=== PATIENT | male | born 1955 | race Caucasian/White ===

== ENCOUNTER → 2020-02-19 09:15 | Outpatient (BNVA) | payer MEDICARE, SELFPAY | PROVIDERS: PCP Internal Medicine; Referring Provider Internal Medicine; Visit Provider Orthopaedic Surgery | DX: M75.52 Bursitis of left shoulder (principal); G54.0 Brachial plexus disorders | CPT/HCPCS: 20610; 99212; J1100 ==

== ENCOUNTER 2020-05-14 13:59 | Outpatient (REF) | payer MEDICARE, SELFPAY ==
--- NOTE | 2020-05-14 14:03 | XR_ITS ---
EXAMINATION: XR CHEST CLINICAL INFORMATION: Pneumonia COMPARISON: 08/21/2019 x-ray, CTA chest TECHNIQUE: 2 views of the chest were obtained. FINDINGS: Stable cardiac and mediastinal silhouette. There is curvilinear atelectasis/scarring in the left lung base, appearing similar to previous. Blunting of the left lateral costophrenic angle, similar to previous, likely reflecting pleural thickening rather than small effusion. No new focal consolidation. No right-sided pleural effusion. No pulmonary edema or pneumothorax. Multilevel thoracic spine degeneration. XR/XR chest 2V IMPRESSION: No evidence of new focal consolidation. Similar appearance of pleural parenchymal findings in the left lung base.
== END 2020-05-14 14:00 | disposition home or self-care (01) ==
LOC: HO.HMGCX 13:59
PROVIDERS: PCP Internal Medicine; Visit Provider Internal Medicine
DX: J18.9 Pneumonia, unspecified organism (principal)
CPT/HCPCS: 71046

== ENCOUNTER 2020-05-23 10:03 | Outpatient (REF) | payer MEDICARE, SELFPAY ==
--- NOTE | 2020-05-23 10:06 | EMG_ITS ---
Right median and ulnar motor and sensory studies were performed. Right radial sensory study was performed. Right median and lateral antecubital laterals and medial sensory studies were performed. Paraspinal muscles and deltoid were checked with needle. IMPRESSION: 1. [id number] right median neuropathy across carpal tunnel. 2. No evidence of right brachial plexopathy. MD ISHAN Wilkerson/WALLYL / [id number]
== END 2020-05-23 10:04 | disposition home or self-care (01) ==
LOC: HO.NEURO 10:03
PROVIDERS: Visit Provider Orthopaedic Surgery
DX: G54.0 Brachial plexus disorders (principal)
CPT/HCPCS: 95886; 95910

== ENCOUNTER → 2020-06-06 11:12 | Outpatient (BNVA) | payer MEDICARE, SELFPAY | PROVIDERS: Visit Provider Orthopaedic Surgery | DX: Z13.89 Encounter for screening for other disorder (principal) | CPT/HCPCS: 99212 ==

== ENCOUNTER 2020-07-17 10:00 | Outpatient (RCR) | payer MEDICARE, SELFPAY ==
--- NOTE | 2020-06-17 11:47 | MHC.PT.EP ---
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 pt is a fair candidate for skilled PT due to age, potential remediation of impairments, typical disease/condition progression and prognosis, comorbidities, and motivation. pt would benefit from tailored strengthening and stretching exercise program, functional training, postural re-training, neuromuscular re-education, modalities as needed for pain, and equipment safety demonstration. Frequency and Duration: The patient will be seen 2x/wk for 4 wks Short Term Goals: pt will be I w/ HEP to promote self-management of condition. pt will improve R shoulder external rotation by 15 degrees to promote ease in upper body ADLs. 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 pt will improve R shoulder flexion by 20 degrees to promote ease in reaching head to perform grooming activities. Treatment Plan: Modalities to reduce pain, spasms and effusion. Manual therapy to restore motion and function. Therapeutic exercise to improve strength and flexibility. Neuromuscular re-education for posture and balance. Therapeutic activities to return to functional activities of daily living. Electronically signed by: Nano Goff PT, DPT Please sign and return to therapist. Thank you for your referral.
--- NOTE | 2020-07-22 10:44 | MHC.PT.DC ---
[facility] [place] Office [place] Office [place] Office [address] Hailey Mims [address] [phone] F: [phone] F: [phone] F: [phone] F: [phone] Physical Therapy Discharge Report Diagnosis: G54.0 brachial plexus disorders M24.551 contracture, right hip Date of Surgery: Date of Evaluation: 06/17/20 Date of Discharge: 07/22/20 Treatments to Date: 9 Cancellations to Date: 1 No Shows to Date: 0 Discharge Status: Recommend MD Follow-up Discharge Summary: The patient had a freezing episode in the hospital elevator and required assistance from 3+ people to get him into a wheelchair last visit. He was wheeled into the therapy gym and reported he was not feeling dizzy or lightheaded, just got stuck. Overall, he reports no improvement regarding use of his shoulder. He has poor home exercise program compliance at home and only does his at-home matthew system. It is unclear if the patient will benefit from further PT for his shoulder d/t progressive worsening of his Parkinson's and poor bony alignment/healing post-fracture. He is discharged from this physical therapy plan of care to his home exercise program at this time. Electronically signed by: Nano Goff PT, DPT Please sign and return to therapist. Thank you for your referral.
== END 2020-07-22 10:44 | disposition other institution (70) ==
LOC: HO.PT 10:00
PROVIDERS: Visit Provider Orthopaedic Surgery
DX: G54.0 Brachial plexus disorders (principal); M24.551 Contracture, right hip
CPT/HCPCS: 97110; 97140; 97162; 97530

== ENCOUNTER 2020-07-18 11:35 | Emergency (ER) | payer MEDICARE, SELFPAY ==
--- NOTE | ~2020-07-18 | XR_ITS ---
EXAMINATION: XR CHEST CLINICAL INFORMATION: Chest pain. COMPARISON: Chest x-ray 05/14/2020. TECHNIQUE: 2 views of the chest were obtained. FINDINGS: Stable normal cardiac and mediastinal silhouette. Curvilinear atelectasis/scarring in the left lung base, with similar appearance of blunting of the left costophrenic angle. No new focal consolidation. No right-sided pleural effusion. No pulmonary edema. No pneumothorax. Thoracic spine degeneration. XR/XR chest 2V IMPRESSION: No evidence of new focal consolidation. Stable blunting of the left costophrenic angle and left basilar atelectasis/scarring.
[2020-07-18 11:44] VITALS: BP 132/63; PULSE 68; RESP 16; TEMP 36.4; O2SAT 96; BMI 31.8
--- NOTE | 2020-07-18 11:49 | ECG_ITS ---
Test Reason : CP Blood Pressure : / mmHG Vent. Rate : 062 BPM Atrial Rate : 062 BPM P-R Int : 174 ms QRS Dur : 100 ms QT Int : 428 ms P-R-T Axes : 062 036 043 degrees QTc Int : 434 ms Sinus rhythm with marked sinus arrhythmia Otherwise normal ECG When compared with ECG of 21-AUG-2019 12:29, No significant change was found Referred By: Arti Peguero Electronically Signed By:MAURO MACE
--- NOTE | 2020-07-18 12:35 | ED_ITS ---
HPI - Chest Pain General Chief Complaint: Chest Pain Stated Complaint: chest pain Time Seen by Provider: 07/18/20 12:21 Source: patient Mode of arrival: ambulatory History of Present Illness HPI narrative: 65-year-old male with a past medical history of COPD, HTN, Parkinson's, hyperlipidemia, pneumonia 1 month ago, presenting to the ED com plaining of intermittent CP and worsening SOB with wheezing x 3-5 days. Reports dyspnea on exertion, mild LE edema, and persistent dry cough. Denies compliance with home inhalers. Denies taking anticoagulation. Traveled to [place] about 1 month ago. Denies fever, chills, abdominal pain, nausea/vomiting, calf pain MD complaint: chest pain and chest discomfort Related Data Home Medications Medication Instructions Recorded Confirmed atorvastatin 10 mg tablet 10 mg PO DAILY 02/19/20 07/18/20 carbidopa 10 mg-levodopa 100 mg 1 tab PO QID 02/19/20 07/18/20 tablet carbidopa 10 mg-levodopa 100 mg 1 tab PO QID 02/19/20 07/18/20 tablet clonazepam 1 mg tablet 1 mg PO DAILY 02/19/20 07/18/20 pramipexole 0.125 mg tablet 0.125 mg PO DAILY 02/19/20 07/18/20 tramadol 50 mg tablet 50 mg PO DAILY 02/19/20 07/18/20 Previous Rx's Medication Instructions Recorded amlodipine 2.5 mg tablet 2.5 mg PO DAILY #30 tab 05/14/20 oxycodone 5 mg tablet 5 mg PO DAILY PRN #30 tab 07/11/20 albuterol sulfate 2 puff INHALATION Q4-6H PRN #6.7 g 07/18/20 prednisone 40 mg PO DAILY 5 Days #10 tab 07/18/20 Allergies Allergy/AdvReac Type Severity Reaction Status Date / Time amlodipine Allergy Unknown unknown Verified 07/18/20 11:49 Review of Systems Review of Systems: Constitutional: No Fever, No Chills, No Fatigue, No Malaise Cardiovascular: + Chest Pain, + SOB, + Dyspnea on Exertion, No Orthopnea, + Edema, No Palpitations Respiratory: + Cough, No Sputum, + Wheezing, + Dyspnea Gastrointestinal: No Nausea, No Vomiting, No Diarrhea, No Abdominal pain Genitourinary: No Dysuria, No Urinary Frequency, No Hematuria Musculoskeletal: No joint pain, No Myalgias, No Joint Swelling Skin: No Skin Lesions, No rash Neuro: No Weakness, No Numbness, No Dizziness, No Headache Yes all other systems are reviewed and are negative [facility] Past Medical History Attestation statement: The following information was validated with the patient. Medical History (Updated 07/18/20 @ 16:21 by ANDERSON Rachel) Acute bursitis of left shoulder Axillary nerve palsy COPD (chronic obstructive pulmonary disease) Family history of ischemic heart disease and other diseases of the circulatory system HTN (hypertension) Nonrheumatic aortic (valve) insufficiency Parkinson disease Pneumonia Pure hypercholesterolemia, unspecified Surgical History History of arthroscopy of shoulder History of colonoscopy History of esophagogastroduodenoscopy (EGD) History of right hip replacement History of surgery History of total hip arthroplasty Family History Family History Father CVD (cardiovascular disease) Mother CVD (cardiovascular disease) Brother No problems noted. Brother Brain cancer Sister No problems noted. Sister MRSA (methicillin resistant Staphylococcus aureus) Daughter No problems noted. Social History Social History Alcohol intake: never Smoking Status: Unknown if ever smoked Use of substances other than those prescribed or required for medical reasons: No Advance Directives: No Advance Directives Information Provided: Yes Current occupational status: employed Current occupation: Right Handed Physical Exam Vital Signs: Vital Signs: Last Vital Signs Temp 97.6 F 07/18/20 11:44 Pulse 62 07/18/20 14:41 Resp 16 07/18/20 14:41 BP 132/63 07/18/20 11:44 Pulse Ox 96 07/18/20 14:41 Body Mass Index 31.8 Const: General: cooperative, healthy appearing and no acute distress Orientation/consciousness: patient oriented x3 Limitations: no limitations HENMT: Head: Yes normal to inspection Ears: hearing grossly normal bilaterally General nose exam: Normal external nose present Face and sinus: Yes normal facial exam Eyes: General: appearance normal, both eyes and all related structures EOM: EOMs intact bilaterally Neck: Neck: Yes normal visual inspection Resp: Effort & Inspection: normal respiratory effort Auscultation: clear to auscultation bilaterally and wheezes Cardio: Rate: regular rate Heart sounds: S1 normal heart sound present and S2 normal heart sound present GI: Inspection: Yes normal to inspection Palpation (GI): Soft to palpation, nontender, no guarding and not rigid Skin: Rashes: no rashes Wounds: no wounds Neuro: General: patient oriented x3 Gait exam (Neuro): Normal gait present Extrem: General: Yes normal to inspection and Yes edema (Mild bilateral lower extremity pitting edema) Course Course Course Narrative: -no leukocytosis. H&H stable, BUN at baseline, troponin nega tive, labs otherwise unremarkable -COVID 19/influenza/RSV negative XR chest 2V IMPRESSION: No evidence of new focal consolidation. Stable blunting of the left costophrenic angle and left basilar atelectasis/scarring -1617--On re-evaluation after our long treatment patient with clear lungs. Discussed worrisome signs and symptoms and strict return precautions. Informed patient he needs to be compliant with home medications/inhalers. Is to follow- up with PCP MDM - Chest Pain MDM Narrative Medical decision making narrative: 65-year-old male with a past medical history of COPD, HTN, Parkinson's, hyperlipidemia, pneumonia 1 month ago, presenting to the ED complaining of intermittent CP and worsening SOB with wheezing x 3-5 days. Reports dyspnea on exertion, mild LE edema, and persistent dry cough. On exam VSS, NAD, lungs with diffuse wheezing, mild bilateral lower extremity pitting edema. Concern for COPD exacerbation vs ACS vs CHF. Low concern for DVT/PE. Rule out pneumonia/viral syndrome/COVID-19 Plan: EKG, labs, CXR, albuterol, magnesium, Solu-Medrol, reassess Medical Records Data Attestation: I reviewed the patient's medical records. Lab Data Attestation: I reviewed the patient's lab results. Result diagrams: 07/18/20 12:45 07/18/20 12:45 Labs: Lab Results 07/18/20 07/18/20 07/18/20 Range/Units 12:45 12:45 12:45 WBC 6.4 (4.8-10.8) X10*3/uL RBC 4.38 L (4.60-5.80) X10*6/uL Hgb 13.4 L (14.0-18.0) g/dl Hct 41.1 L (42-52) % MCV 93.8 (80-98) fL MCH 30.6 (27.0-33.0) pg MCHC 32.6 (31.0-36.0) g/dl RDW 13.3 (11.0-16.0) % Plt Count 191 (160-400) X10*3/uL MPV 9.8 (9.4-12.4) fL Immature Gran % (Auto) 0.5 H (0.0-0.4) % Neut % (Auto) 80.2 H (45-73) % Lymph % (Auto) 7.9 L (20-40) % [place] % (Auto) 8.4 (2-11) % Eos % (Auto) 2.5 (0-4) % Baso % (Auto) 0.5 (0-2) % Lymph # (Auto) 0.5 L (1.2-4.9) X10*3/uL [place] # (Auto) 0.5 (0.1-1.2) X10*3/uL Eos # (Auto) 0.2 (0.0-0.4) X10*3/uL Baso # (Auto) 0.0 (0.0-0.2) X10*3/uL Abs Immat Gran (auto) 0.03 (0.00-0.03) X10*3/uL Absolute Neuts (auto) 5.2 (2.0-8.3) X10*3/uL Absolute Nucleated RBC 0.000 (0.0-0.012) X10*3/uL Nucleated RBC % (auto) 0.0 (0.0-0.2) /100WBC Smear Tech's Comments VERIFIED Hold Purple Top SEE NOTE Hold Blue Top SEE NOTE Sodium (135-145) mmol/L Potassium (3.3-5.1) mmol/L Chloride (96-108) mmol/L Carbon Dioxide (22-29) mmol/L Anion Gap (12-20) BUN (9-16) mg/dL Creatinine (0.5-1.4) mg/dL Estim Creat Clear Calc Estimated GFR Random Glucose (60-115) mg/dL Calcium (8.4-10.2) mg/dL Magnesium (1.6-2.6) mg/dL Total Bilirubin (0.0-1.0) mg/dL Direct Bilirubin (0.0-0.5) mg/dL AST (5-37) U/L ALT (0-40) U/L Alkaline Phosphatase (39-117) U/L Troponin I High Sens (<3.5-35.0) ng/L B-Natriuretic Peptide (<100) pg/mL Total Protein (6.5-8.0) g/dL Albumin (3.5-5.0) g/dL Procalcitonin ng/mL Coronavirus (PCR) (Negative) Influenza Type A (PCR) (Negative) Influenza Type B (PCR) (Negative) RSV RNA Qual (PCR) (Negative) 07/18/20 07/18/20 07/18/20 Range/Units 12:45 12:45 12:45 WBC (4.8-10.8) X10*3/uL RBC (4.60-5.80) X10*6/uL Hgb (14.0-18.0) g/dl Hct (42-52) % MCV (80-98) fL MCH (27.0-33.0) pg MCHC (31.0-36.0) g/dl RDW (11.0-16.0) % Plt Count (160-400) X10*3/uL MPV (9.4-12.4) fL Immature Gran % (Auto) (0.0-0.4) % Neut % (Auto) (45-73) % Lymph % (Auto) (20-40) % [place] % (Auto) (2-11) % Eos % (Auto) (0-4) % Baso % (Auto) (0-2) % Lymph # (Auto) (1.2-4.9) X10*3/uL [place] # (Auto) (0.1-1.2) X10*3/uL Eos # (Auto) (0.0-0.4) X10*3/uL Baso # (Auto) (0.0-0.2) X10*3/uL Abs Immat Gran (auto) (0.00-0.03) X10*3/uL Absolute Neuts (auto) (2.0-8.3) X10*3/uL Absolute Nucleated RBC (0.0-0.012) X10*3/uL Nucleated RBC % (auto) (0.0-0.2) /100WBC Smear Tech's Comments Hold Purple Top Hold Blue Top Sodium 140 (135-145) mmol/L Potassium 4.4 (3.3-5.1) mmol/L Chloride 103 (96-108) mmol/L Carbon Dioxide 31 H (22-29) mmol/L Anion Gap 10 L (12-20) BUN 26 H (9-16) mg/dL Creatinine 0.82 (0.5-1.4) mg/dL Estim Creat Clear Calc 114.8 Estimated GFR > 60 Random Glucose 89 (60-115) mg/dL Calcium 8.6 (8.4-10.2) mg/dL Magnesium 2.1 (1.6-2.6) mg/dL Total Bilirubin 0.6 (0.0-1.0) mg/dL Direct Bilirubin 0.2 (0.0-0.5) mg/dL AST 15 (5-37) U/L ALT < 6 (0-40) U/L Alkaline Phosphatase 110 (39-117) U/L Troponin I High Sens < 3.5 (<3.5-35.0) ng/L B-Natriuretic Peptide 23 (<100) pg/mL Total Protein 6.5 (6.5-8.0) g/dL Albumin 4.0 (3.5-5.0) g/dL Procalcitonin ng/mL Coronavirus (PCR) NEGATIVE (Negative) Influenza Type A (PCR) NEGATIVE (Negative) Influenza Type B (PCR) NEGATIVE (Negative) RSV RNA Qual (PCR) NEGATIVE (Negative) 07/18/20 Range/Units 12:45 WBC (4.8-10.8) X10*3/uL RBC (4.60-5.80) X10*6/uL Hgb (14.0-18.0) g/dl Hct (42-52) % MCV (80-98) fL MCH (27.0-33.0) pg MCHC (31.0-36.0) g/dl RDW (11.0-16.0) % Plt Count (160-400) X10*3/uL MPV (9.4-12.4) fL Immature Gran % (Auto) (0.0-0.4) % Neut % (Auto) (45-73) % Lymph % (Auto) (20-40) % [place] % (Auto) (2-11) % Eos % (Auto) (0-4) % Baso % (Auto) (0-2) % Lymph # (Auto) (1.2-4.9) X10*3/uL [place] # (Auto) (0.1-1.2) X10*3/uL Eos # (Auto) (0.0-0.4) X10*3/uL Baso # (Auto) (0.0-0.2) X10*3/uL Abs Immat Gran (auto) (0.00-0.03) X10*3/uL Absolute Neuts (auto) (2.0-8.3) X10*3/uL Absolute Nucleated RBC (0.0-0.012) X10*3/uL Nucleated RBC % (auto) (0.0-0.2) /100WBC Smear Tech's Comments Hold Purple Top Hold Blue Top Sodium (135-145) mmol/L Potassium (3.3-5.1) mmol/L Chloride (96-108) mmol/L Carbon Dioxide (22-29) mmol/L Anion Gap (12-20) BUN (9-16) mg/dL Creatinine (0.5-1.4) mg/dL Estim Creat Clear Calc Estimated GFR Random Glucose (60-115) mg/dL Calcium (8.4-10.2) mg/dL Magnesium (1.6-2.6) mg/dL Total Bilirubin (0.0-1.0) mg/dL Direct Bilirubin (0.0-0.5) mg/dL AST (5-37) U/L ALT (0-40) U/L Alkaline Phosphatase (39-117) U/L Troponin I High Sens (<3.5-35.0) ng/L B-Natriuretic Peptide (<100) pg/mL Total Protein (6.5-8.0) g/dL Albumin (3.5-5.0) g/dL Procalcitonin 0.02 ng/mL Coronavirus (PCR) (Negative) Influenza Type A (PCR) (Negative) Influenza Type B (PCR) (Negative) RSV RNA Qual (PCR) (Negative) ECG Data ECG #1: Attestation: I personally reviewed and interpreted this ECG as follows: ECG interpretation date: 07/18/20 ECG interpretation time: 11:59 Interpretation: EKG normal sinus rhythm rate 62. Nonischemic, no STEMI Discharge Plan Discharge Clinical Impression: COPD (chronic obstructive pulmonary disease) Patient Disposition: Home, Self-Care Instructions: COPD (Chronic Obstructive Pulmonary Disease) (ED) Additional Instructions: You are having an exacerbation of her COPD. You need to take at home medications/inhalers. In addition start taking prednisone which is a steroid Follow up with her doctor in the next 5-7 days If her symptoms persist or worsen, your chest pain shortness of breath becomes more constant, fever, chills, worsening or persistent swelling in your legs return to the ED Prescriptions: New albuterol sulfate 90 mcg/actuation HFA aerosol inhaler 2 puff inhalation Q4-6H PRN (Reason: shortness of breath or wheezing) Qty: 6.7 RF: 0 prednisone 20 mg tablet 40 mg PO DAILY 5 Days Qty: 10 RF: 0 No Action oxycodone 5 mg tablet 5 mg PO DAILY PRN (Reason: pain) Qty: 30 RF: 0 amlodipine 2.5 mg tablet 2.5 mg PO DAILY Qty: 30 RF: 3 tramadol 50 mg tablet 50 mg PO DAILY RF: 0 carbidopa-levodopa [Sinemet] 10-100 mg tablet 1 tab PO QID RF: 0 pramipexole 0.125 mg tablet 0.125 mg PO DAILY RF: 0 carbidopa-levodopa 10-100 mg tablet 1 tab PO QID RF: 0 clonazepam 1 mg tablet 1 mg PO DAILY RF: 0 atorvastatin 10 mg tablet 10 mg PO DAILY RF: 0 Referrals: Elisabet Ochoa MD [Primary Care Provider] - 2 days
[2020-07-18 12:58] LABS: Basophils Percent Auto 0.5 % (0-2); Eosinophils Absolute Auto 0.2 X10*3/uL (0.0-0.4); Eosinophils Percent Auto 2.5 % (0-4); Hematocrit 41.1 % (42-52); Hemoglobin 13.4 g/dl (14.0-18.0); Imm Gran Abs Auto 0.03 X10*3/uL (0.00-0.03); Imm Gran Pct Auto 0.5 % (0.0-0.4); Lymphocytes Absolute Auto 0.5 X10*3/uL (1.2-4.9); Lymphocytes Percent Auto 7.9 % (20-40); MANUAL DIFF FLAG SCAN; Mean Corpuscular HGB Conc 32.6 g/dl (31.0-36.0); Mean Corpuscular Hemoglobin 30.6 pg (27.0-33.0); Mean Corpuscular Volume 93.8 fL (80-98); Mean Platelet Volume 9.8 fL (9.4-12.4); Monocytes Absolute Auto 0.5 X10*3/uL (0.1-1.2); Monocytes Percent Auto 8.4 % (2-11); Neutrophils Absolute Auto 5.2 X10*3/uL (2.0-8.3); Neutrophils Percent Auto 80.2 % (45-73); Platelet Count 191 X10*3/uL (160-400); Red Blood Count 4.38 X10*6/uL (4.60-5.80); Red Cell Distribution Width 13.3 % (11.0-16.0); SCAN SMEAR FLAG 1; White Blood Count 6.4 X10*3/uL (4.8-10.8)
--- NOTE | 2020-07-18 13:01 | PC.NURSE ---
EKG documented for ID# [id number]
[2020-07-18] MEDS: methylPREDNISolone Sod Succ 125 MG/2 ML VIAL IVPUSH (13:04)
[2020-07-18] MEDS: Magnesium Sulfate/H2O 2 GM/50 ML PIGGYBACK IV (13:04)
[2020-07-18 13:09] VITALS: PULSE 60
[2020-07-18 13:25] LABS: B Type Natriuretic Peptide 23 pg/mL (<100); Troponin-I High Sensitivity < 3.5 ng/L (<3.5-35.0)
[2020-07-18 13:26] LABS: SLIDE REVIEW VERIFIED
[2020-07-18 13:27] LABS: Alanine Aminotransferase < 6 U/L (0-40); Alkaline Phosphatase 110 U/L (39-117); Anion Gap 10 (12-20); Aspartate Amino Transferase 15 U/L (5-37); Bilirubin Direct 0.2 mg/dL (0.0-0.5); Bilirubin Total 0.6 mg/dL (0.0-1.0); Blood Urea Nitrogen 26 mg/dL (9-16); Calcium 8.6 mg/dL (8.4-10.2); Carbon Dioxide 31 mmol/L (22-29); Chloride 103 mmol/L (96-108); Creatinine Clr Calc Pharmacy 114.8; Estimated Glomerular Filt Rate > 60; Glucose Random 89 mg/dL (60-115); Magnesium 2.1 mg/dL (1.6-2.6); Potassium 4.4 mmol/L (3.3-5.1); Sodium 140 mmol/L (135-145); Total Protein 6.5 g/dL (6.5-8.0)
[2020-07-18 13:32] LABS: Influenza A PCR NEGATIVE (Negative); Influenza B PCR NEGATIVE (Negative); Resp Syncy Virus RNA Qual PCR NEGATIVE (Negative); SARS COV2 PCR INHOUSE NEGATIVE (Negative)
[2020-07-18 13:40] LABS: Procalcitonin 0.02 ng/mL
[2020-07-18] MEDS: Albuterol/Iprat 2.5/0.5MG 3 ML AMPUL.NEB INHALE (14:03)
[2020-07-18] MEDS: Albuterol Sulfate 90 MCG 8 GM INHALER 4 PUFF INHALE (14:03)
[2020-07-18 14:05] VITALS: PULSE 59; O2SAT 95
[2020-07-18 14:31] VITALS: PULSE 73; O2SAT 95
[2020-07-18] MEDS: Albuterol Sulfate (0.083%) 2.5 MG/3 ML VIAL.NEB 10 MG INHALE (14:31)
[2020-07-18 14:41] VITALS: PULSE 62; RESP 16; O2SAT 96
== END 2020-07-18 16:24 | disposition home or self-care (01) ==
PROVIDERS: Physician Assistant; Emergency Provider Emergency Medicine; PCP Internal Medicine
DX: J44.1 Chronic obstructive pulmonary disease with (acute) exacerbation (principal); R07.9 Chest pain, unspecified; Z20.822 Contact with and (suspected) exposure to COVID-19; I10 Essential (primary) hypertension; G20 Parkinson's disease; E78.5 Hyperlipidemia, unspecified; Z87.01 Personal history of pneumonia (recurrent); Z79.02 Long term (current) use of antithrombotics/antiplatelets; Z79.899 Other long term (current) drug therapy
CPT/HCPCS: 0241U; 36415; 71046; 80048; 80076; 83735; 83880; 84145; 84484; 85025; 93005; 94640; 94644; 96365; 96366; 96374; 99284; 99285; J2930; J3475

== ENCOUNTER 2020-08-12 16:01 | Outpatient (REF) | payer MEDICARE, SELFPAY ==
--- NOTE | ~2020-08-12 | XR_ITS ---
EXAMINATION: XR HAND, LEFT CLINICAL INFORMATION: Pain. COMPARISON: None. TECHNIQUE: PA, lateral, and oblique views of the left hand. FINDINGS: There is loss of PIP and DIP joint space with minimal periarticular spurring. No bony erosive changes seen. The MCP and carpometacarpal joints space is maintained normal. Small radiopaque foreign body seen along the soft tissues of proximal phalanx 2nd digit. XR/XR hand LT min 3V IMPRESSION: Mild degenerative changes of left hand as described above. Small radiopaque soft tissue foreign body in the proximal phalanx 2nd digit.
== END 2020-08-12 16:02 | disposition home or self-care (01) ==
LOC: HO.HOSX 16:01
PROVIDERS: Visit Provider Orthopaedic Surgery
DX: M79.642 Pain in left hand (principal)
CPT/HCPCS: 73130

== ENCOUNTER → 2020-08-13 09:32 | Outpatient (BNVA) | payer MEDICARE, SELFPAY | PROVIDERS: PCP Internal Medicine; Visit Provider Orthopaedic Surgery | DX: M65.331 Trigger finger, right middle finger (principal); M19.042 Primary osteoarthritis, left hand | CPT/HCPCS: 20550; 99202; J1100 ==

== ENCOUNTER → 2020-08-29 11:02 | Outpatient (BNVA) | payer MEDICARE, SELFPAY | PROVIDERS: PCP Internal Medicine; Visit Provider Orthopaedic Surgery | DX: G54.0 Brachial plexus disorders (principal); G20 Parkinson's disease; M75.101 Unspecified rotator cuff tear or rupture of right shoulder, not specified as traumatic | CPT/HCPCS: 99212 ==

== ENCOUNTER 2020-08-30 11:37 | Outpatient (REF) | payer MEDICARE, SELFPAY ==
[2020-08-30 14:22] LABS: Hematocrit 43.6 % (42-52); Hemoglobin 13.9 g/dl (14.0-18.0); Mean Corpuscular HGB Conc 31.9 g/dl (31.0-36.0); Mean Corpuscular Hemoglobin 29.9 pg (27.0-33.0); Mean Corpuscular Volume 93.8 fL (80-98); Mean Platelet Volume 10.4 fL (9.4-12.4); Platelet Count 230 X10*3/uL (160-400); Red Blood Count 4.65 X10*6/uL (4.60-5.80); Red Cell Distribution Width 12.8 % (11.0-16.0); White Blood Count 6.7 X10*3/uL (4.8-10.8)
[2020-08-30 15:03] LABS: Alanine Aminotransferase 6 U/L (0-40); Alkaline Phosphatase 121 U/L (39-117); Anion Gap 10 (12-20); Aspartate Amino Transferase 17 U/L (5-37); Bilirubin Total 0.6 mg/dL (0.0-1.0); Blood Urea Nitrogen 23 mg/dL (9-16); Calcium 9.1 mg/dL (8.4-10.2); Carbon Dioxide 30 mmol/L (22-29); Chloride 103 mmol/L (96-108); Cholesterol 166 mg/dL; Estimated Glomerular Filt Rate > 60; Glucose Fasting 92 mg/dL (60-99); HDL Cholesterol 33 mg/dL; LDL Cholesterol Calculated 111 mg/dl; Potassium 4.9 mmol/L (3.3-5.1); Sodium 138 mmol/L (135-145); Total Protein 6.3 g/dL (6.5-8.0); Triglycerides 114 mg/dL
[2020-08-30 15:11] LABS: Prostate Specific Antigen Scr 0.24 ng/mL (<0.05-4.0)
== END 2020-08-30 11:38 | disposition home or self-care (01) ==
LOC: HO.HMGCLDS 11:37
PROVIDERS: PCP Internal Medicine; Visit Provider Internal Medicine
DX: Z00.00 Encounter for general adult medical examination without abnormal findings (principal); Z12.5 Encounter for screening for malignant neoplasm of prostate; E78.5 Hyperlipidemia, unspecified
CPT/HCPCS: 36415; 80053; 80061; 84153; 85027

== ENCOUNTER → 2020-09-23 14:16 | Outpatient (BNVA) | payer MEDICARE, SELFPAY | PROVIDERS: PCP Internal Medicine; Visit Provider Orthopaedic Surgery | DX: M70.22 Olecranon bursitis, left elbow (principal) | CPT/HCPCS: 99212 ==

== ENCOUNTER → 2020-11-12 09:26 | Outpatient (BNVA) | payer MEDICARE, SELFPAY | PROVIDERS: PCP Internal Medicine; Visit Provider Nurse Practitioner Family | DX: K59.04 Chronic idiopathic constipation (principal); R55 Syncope and collapse | CPT/HCPCS: 99202 ==

== ENCOUNTER → 2020-12-05 09:17 | Outpatient (BNVA) | payer MEDICARE, SELFPAY | PROVIDERS: Visit Provider Orthopaedic Surgery | DX: M12.811 Other specific arthropathies, not elsewhere classified, right shoulder (principal); M75.52 Bursitis of left shoulder; G58.8 Other specified mononeuropathies; I10 Essential (primary) hypertension; G20 Parkinson's disease; E78.5 Hyperlipidemia, unspecified; E78.00 Pure hypercholesterolemia, unspecified; F17.210 Nicotine dependence, cigarettes, uncomplicated; Z88.8 Allergy status to other drugs, medicaments and biological substances | CPT/HCPCS: 20610; 99212; J1100 ==

== ENCOUNTER → 2020-12-11 12:08 | Outpatient (BNVA) | payer MEDICARE, SELFPAY | PROVIDERS: PCP Internal Medicine; Visit Provider Anesthesiology | DX: M12.811 Other specific arthropathies, not elsewhere classified, right shoulder (principal); G90.511 Complex regional pain syndrome I of right upper limb; Z79.899 Other long term (current) drug therapy | CPT/HCPCS: 99202 ==

== ENCOUNTER 2020-12-11 13:38 | Emergency (ER) | payer MEDICARE, SELFPAY ==
--- NOTE | ~2020-12-11 | XR_ITS ---
EXAMINATION: XR SHOULDER, RIGHT CLINICAL INFORMATION: Right shoulder pain COMPARISON: August 15, 2019 TECHNIQUE: Three views of the right shoulder. FINDINGS: There is again noted to be deformity about the right lateral humeral head and neck related to old fracture dislocation. No acute fracture or dislocation is evident. There is some mild subluxation of the humeral head in the glenohumeral joint which is more prominent than on previous study of August 15, 2019 and is consistent with rotator cuff injury. There are a few new areas of calcification present one of which may be related to calcific tendinitis and one just inferior to the glenohumeral joint. No widening of the coracoclavicular space is seen. No significant abnormality of the acromioclavicular joint is noted. The glenohumeral joint spaces maintained. XR/XR shoulder RT min 2V IMPRESSION: Chronic changes of right humeral fracture dislocation as described.
[2020-12-11 13:46] VITALS: BP 127/77; PULSE 71; RESP 16; TEMP 36.1; O2SAT 95; BMI 29.8
--- NOTE | 2020-12-11 15:13 | ED_ITS ---
HPI - Extremity Problem General Chief complaint: Extremity Injury, Upper Stated complaint: rt shoulder pain Time Seen by Provider: 12/11/20 15:13 History of Present Illness HPI Narrative: Patient with chronic pain in the right shoulder since of fracture which was repaired surgically 2 years ago, he had a steroid injection for increased pain 3 days ago at the orthopedic office, he did golf several days ago and the pain is significantly worsens, there is no fever no new injury Related Data Home Medications Medication Instructions Recorded Confirmed carbidopa 10 mg-levodopa 100 mg 1 tab PO QID 02/19/20 08/23/20 tablet carbidopa 10 mg-levodopa 100 mg 1 tab PO QID 02/19/20 08/23/20 tablet (Sinemet) clonazepam 1 mg tablet 1 mg PO DAILY 02/19/20 08/23/20 pramipexole 0.125 mg tablet 0.125 mg PO DAILY 02/19/20 08/23/20 tramadol 50 mg tablet 50 mg PO DAILY 02/19/20 08/23/20 Previous Rx's Medication Instructions Recorded albuterol sulfate 90 mcg/actuation 2 puff INHALATION Q4-6H PRN #6.7 g 07/18/20 aerosol inhaler atorvastatin 10 mg tablet 10 mg PO DAILY #90 tab 09/04/20 Hospital bed #1 ea 10/17/20 methylcellulose (laxative) 500 mg 500 mg PO DAILY #30 tab 11/12/20 tablet (Citrucel) sennosides 8.6 mg tablet (Natural 17.2 mg PO BEDTIME PRN #60 tab 11/12/20 Senna Laxative) prednisone 20 mg tablet 20 mg PO .COMPLEX #18 tab 12/03/20 oxycodone 5 mg tablet 5 mg PO Q12H PRN #60 tab 12/06/20 tizanidine 4 mg tablet 4 mg PO TID PRN 30 Days #90 tab 12/11/20 Allergies Allergy/AdvReac Type Severity Reaction Status Date / Time amlodipine Allergy Unknown unknown Verified 12/11/20 12:19 Review of Systems Review of Systems: Positive for right shoulder pain Negatives are no fever no chills no neck pain no chest pain no shortness of breath no numbness weakness or tingling no other joint pains no skin rash Yes a ll other systems are reviewed and are negative PMFSH Past Medical History Source: nursing notes reviewed Medical History Acute bursitis of left shoulder Annual physical exam Axillary nerve palsy Complex regional pain syndrome of right upper extremity COPD (chronic obstructive pulmonary disease) Encounter for screening for lung cancer Family history of ischemic heart disease and other diseases of the circulatory system HTN (hypertension) Hyperlipidemia Nonrheumatic aortic (valve) insufficiency Parkinson disease Pneumonia Pure hypercholesterolemia, unspecified Smoker Surgical History History of arthroscopy of shoulder History of colonoscopy History of esophagogastroduodenoscopy (EGD) History of right hip replacement History of surgery History of total hip arthroplasty Family History Family History Father CVD (cardiovascular disease) Mother CVD (cardiovascular disease) Brother No problems noted. Brother Brain cancer Sister No problems noted. Sister MRSA (methicillin resistant Staphylococcus aureus) Daughter No problems noted. Social History Social History Alcohol intake: current Alcohol intake frequency: a few times a week Alcohol type: beer Patient Tobacco Use Status: Current everyday Tobacco user Cigarette Packs Per Day: 0.5 Advance Directives: No Advance Directives Information Provided: No Current occupational status: employed Current occupation: Right Handed Physical Exam Vital Signs: Vital Signs: Last Vital Signs Temp 96.9 F 12/11/20 13:46 Pulse 71 12/11/20 13:46 Resp 16 12/11/20 13:46 BP 127/77 12/11/20 13:46 Pulse Ox 95 12/11/20 13:46 Body Mass Index 29.8 General appearance no acute distress Head is normocephalic atraumatic Neck is supple and nontender Chest wall nontender Respiratory no distress Extremities the right shoulder has very limited range of motion because of discomfort, it is not red or warm, if asked he can move the shoulder is not frozen in place but it hurts, skin is normal in color there are no wounds no redness no warmth no swelling, neurovascular intact distal, there is anterior tenderness Other extremities normal Skin no rash Neuro no focal motor sensory deficits Course Course Course Narrative: Patient with chronic shoulder pain since of fracture 2 years ago who recently saw the orthopedist for steroid shot which has not been helpful complains of worsening pain since he golfed a few days ago He does take oxycodone and has a regular prescription and has found that when pain is at its worst 2 oxycodone do not help so he is advised in worst cases he can take a 3rd oxycodone every 6 hours for a total of 15 mg, but is also advised that the more you take the less effective as you build a tolerance and there is a risk of addiction so he understands to only use it intermittently as needed There is no evidence of joint infection or any emergent condition Discharge Plan Discharge Clinical Impression: Arthralgia of right shoulder region Patient Disposition: Home, Self-Care Additional Instructions: As pain continues uncontrolled after steroid shot it may be a good plan to get a 2nd opinion so I gave you the phone numbers of shoulders specialists Follow with pain management for possible nerve blocks therapy We gave a sling only as a brief interval pain control device, if you wear it for too long you will have loss of muscle tone and lose range of motion so only use it at most a couple of hours a day Return any concerns In worst cases if you need to you can take a 3rd oxycodone, all narcotics are dose dependent, if use them too often you will be addicted and if used too frequently they stop working and you will need higher and higher doses, so only use narcotic occasionally if needed Prescriptions: No Action atorvastatin 10 mg tablet 10 mg PO DAILY Qty: 90 RF: 3 (DME) Hospital bed See Rx Instructions .Route .MEDSUPPLY Qty: 1 RF: 0 oxycodone 5 mg tablet 5 mg PO Q12H PRN (Reason: pain) Qty: 60 RF: 0 albuterol sulfate 90 mcg/actuation HFA aerosol inhaler 2 puff inhalation Q4-6H PRN (Reason: shortness of breath or wheezing) Qty: 6.7 RF: 0 prednisone 20 mg tablet 20 mg PO .COMPLEX Qty: 18 RF: 0 sennosides [Natural Senna Laxative] 8.6 mg tablet 17.2 mg PO BEDTIME PRN (Reason: constipation) Qty: 60 RF: 1 Citrucel 500 mg tablet 500 mg PO DAILY Qty: 30 RF: 2 tizanidine 4 mg tablet 4 mg PO TID PRN (Reason: muscle spasticity) 30 Days Qty: 90 RF: 8 tramadol 50 mg tablet 50 mg PO DAILY RF: 0 carbidopa-levodopa [Sinemet] 10-100 mg tablet 1 tab PO QID RF: 0 pramipexole 0.125 mg tablet 0.125 mg PO DAILY RF: 0 carbidopa-levodopa 10-100 mg tablet 1 tab PO QID RF: 0 clonazepam 1 mg tablet 1 mg PO DAILY RF: 0 Interventions: ED Discharge Assessment Last Done: 12/11/20 15:51 Discharge Date/Time: 12/11/20 15:56
== END 2020-12-11 15:56 | disposition home or self-care (01) ==
PROVIDERS: Emergency Provider Emergency Medicine; PCP Internal Medicine
DX: M25.511 Pain in right shoulder (principal); I10 Essential (primary) hypertension; M12.811 Other specific arthropathies, not elsewhere classified, right shoulder; G58.8 Other specified mononeuropathies; G20 Parkinson's disease; F17.210 Nicotine dependence, cigarettes, uncomplicated
CPT/HCPCS: 73030; 99202; 99283

== ENCOUNTER → 2020-12-20 11:06 | Outpatient (BNVA) | payer MEDICARE, SELFPAY | PROVIDERS: PCP Internal Medicine; Visit Provider Orthopaedic Surgery | DX: M79.18 Myalgia, other site (principal); K59.04 Chronic idiopathic constipation; M12.811 Other specific arthropathies, not elsewhere classified, right shoulder; F17.200 Nicotine dependence, unspecified, uncomplicated; M25.511 Pain in right shoulder; G90.511 Complex regional pain syndrome I of right upper limb | CPT/HCPCS: 20552; 20610; 99212 ==

== ENCOUNTER 2020-12-24 06:23 | Outpatient (REF) | payer MEDICARE, SELFPAY | END 2020-12-24 06:24 | disposition home or self-care (01) | LOC: HO.RADIR 06:23 | PROVIDERS: Visit Provider Anesthesiology | DX: G90.511 Complex regional pain syndrome I of right upper limb (principal); M12.811 Other specific arthropathies, not elsewhere classified, right shoulder | CPT/HCPCS: 64450 ==

== ENCOUNTER → 2021-01-01 09:54 | Outpatient (BNVA) | payer MEDICARE, SELFPAY | PROVIDERS: PCP Internal Medicine; Referring Provider Internal Medicine; Visit Provider Internal Medicine | DX: M25.519 Pain in unspecified shoulder (principal); M12.811 Other specific arthropathies, not elsewhere classified, right shoulder; G90.511 Complex regional pain syndrome I of right upper limb | CPT/HCPCS: 93005; 99202; 99212 ==

== ENCOUNTER → 2021-01-13 16:27 | Outpatient (BNVA) | payer MEDICARE, SELFPAY | PROVIDERS: PCP Internal Medicine; Visit Provider Anesthesiology | DX: M25.519 Pain in unspecified shoulder (principal); M12.811 Other specific arthropathies, not elsewhere classified, right shoulder; M47.816 Spondylosis without myelopathy or radiculopathy, lumbar region; G90.511 Complex regional pain syndrome I of right upper limb | CPT/HCPCS: 99212 ==

== ENCOUNTER → 2021-01-27 10:27 | Outpatient (BNVA) | payer MEDICARE, SELFPAY | PROVIDERS: PCP Internal Medicine; Referring Provider Internal Medicine; Visit Provider Nurse Practitioner Family | DX: K59.04 Chronic idiopathic constipation (principal) | CPT/HCPCS: 99212 ==

== ENCOUNTER 2021-01-30 11:00 | Outpatient (RCR) | payer MEDICARE, SELFPAY ==
--- NOTE | 2021-01-08 12:42 | MHC.PT.EP ---
[facility] [place] Office [place] Office [place] Office [address] [phone] F: [phone] F: [phone] F: [phone] F: [phone] Physical Therapy Plan of Care Date of Evaluation: Date of Surgery: Diagnosis: Complex regional pain syndrome of R upper limb Other specific arthropathies, not elsewhere classified R shoulder Radiculopathy, cervical region Assessment: Pt is a 65yo M with COPD and Parkinson's who presents to PT with chronic R shoulder px. He was having radiating symptoms into RUE however after multiple injections and recent nerve block his radiating pain has improved. He presents today with current impairments in pain, decreased cervical ROM, decreased R shoulder ROM, decreased strength, soft tissue restrictions, impaired posture, and increased trunk rigidity. He is limited functionally by lifting, reaching, turning his head, and ADLs. His signs and symptoms may be consistent with adhesive capsulitis of R shoulder. He will benefit from PT for 2x/week for 5 weeks to address current impairments and will be reassessed to determine if he will benefit from continued PT services. Frequency and Duration: The patient will be seen 2x/week for 5 weeks Short Term Goals: Pt will be I with HEP to promote self management of symptoms Pt will improve flex, ABD and ER of R shoulder by 5 deg each Form Grader Operator Goals: Pt will improve strength of R shoulder flexion by 1 grade to assist with ADLs and reaching Pt will demonstrate improvements in functional mobility as evidenced by statistically significant improvement in SPADI outcome measure Treatment Plan: Modalities to reduce pain, spasms and effusion. Manual therapy to restore motion and function. Therapeutic exercise to improve strength and flexibility. Neuromuscular re-education for posture and balance. Therapeutic activities to return to functional activities of daily living. Electronically signed by: Arti Jarvis, PT, DPT Please sign and return to therapist. Thank you for your referral.
--- NOTE | 2021-03-19 15:24 | MHC.PT.DC ---
[facility] [place] Office [place] Office [place] Office [address] Mims [address] [phone] F: [phone] F: [phone] F: [phone] F: [phone] Physical Therapy Discharge Report Diagnosis: Complex regional pain syndrome of R upper limb Other specific arthropathies, not elsewhere classified R shoulder Radiculopathy, cervical region Date of Surgery: Date of Evaluation: 01/08/21 Date of Discharge: 03/19/21 Treatments to Date: 5 Cancellations to Date: No Shows to Date: 1 Discharge Status: Improved Function Discharge Summary: Pt was seen for skilled PT services from 01/08/21-01/30/21. He attended 5 PT sessions. He was making improvements with R shoulder ROM throughout course of PT. He did not schedule any future PT appointments. Pt is being D/C from skilled PT services at this time. Pt current level of function unknown at this time. Electronically signed by: Arti Jarvis, PT, DPT Please sign and return to therapist. Thank you for your referral.
== END 2021-03-19 15:24 | disposition home or self-care (01) ==
LOC: HO.PT 11:00
PROVIDERS: Visit Provider Anesthesiology
DX: G90.511 Complex regional pain syndrome I of right upper limb (principal); M12.811 Other specific arthropathies, not elsewhere classified, right shoulder; M54.12 Radiculopathy, cervical region
CPT/HCPCS: 97110; 97140; 97162

== ENCOUNTER → 2021-02-03 14:07 | Outpatient (REF) | payer MEDICARE, SELFPAY ==
--- NOTE | 2021-02-03 14:12 | CA_ITS ---
Transthoracic Echocardiogram Patient (Last, First, Middle): Ko Crouch A Gender: Male Date of : 1955 Age: 65 Procedure Date: 02/03/2021 Procedure Type: Transthoracic Echocardiogram Location: OP Height: 238.76 cm Weight: kg BP: 122 / 60 mmHg Belt Cutter: JOSE M Referring MD: David Merlos MD Symptoms: R06.02 - Shortness of breath Study Quality: Fair ECG Rhythm: Sinus with extra beats Conclusions: - The left ventricular systolic function is normal. The calculated ejection fraction is 66% by biplane method. - No obvious valvular pathology seen on this study. - There is mild dilatation of the ascending aorta measuring 4.20 cm. Findings Left Ventricle Normal left ventricular cavity size. There is mildly increased left ventricular wall thickness. The left ventricular systolic function is normal. The calculated ejection fraction is 66% by biplane method. There is no evidence of regional wall motion abnormalities. Diastolic function is normal for age. Right Ventricle Normal right ventricular cavity size and systolic function. Atria Both atria are normal in size. Aortic Valve There is a normal trileaflet aortic valve. There is no aortic valve stenosis. There is no aortic valve regurgitation. Mitral Valve The mitral valve appears normal. There is no mitral valve regurgitation. There is no mitral valve stenosis. Pulmonic Valve The pulmonic valve was not well visualized. Tricuspid Valve Normal tricuspid valve structure. There is trace tricuspid valve regurgitation. The pulmonary artery systolic pressure is normal. Great Vessels There is mild dilatation of the ascending aorta measuring 4.20 cm. Venous The inferior vena cava is normal in size and collapses greater than 50% with inspiration. Pericardium/Pleural There is no evidence of pericardial effusion. Prior Study Comparison No prior study available for comparison. Recommendations, Care & Conclusions No obvious valvular pathology seen on this study. Measurements 2D Linear Measurements IVSd: 1.23 0.6-0.9/0.6-1.0 cm LVIDd: 4.71 3.9-5.3/4.2-5.9 cm LVIDs: 3.04 2.0-3.6 cm LVPWd: 1.25 0.7-1.1 cm Ao Root: 4.30 2.1-3.5 cm LA Diam: 3.60 2.7-3.8/3.0-4.0 cm LV Mass: 277.90 67-162/88-224 g LVOT Diam: 2.40 3.0+(-)1.3 cm 2D Systolic Function EF 4C: 76.00 >55% EF 2C: 50.30 >55% EF BiP: 65.80 >55% Mitral Valve MV Pk E: 0.45 MV PK A: 0.67 MV Decel Time: 277.00 E/A: 0.70 E'Lateral: 7.51 E'Medial: 7.07 E/E' Med: 6.40 E/E' Lat: 6.00 PHT: 81.00 MVA PHT: 2.72 Decel Merrick: 1.64 Aortic Valve AoV Pk Sebastian: 1.15 AoV Mn Sebastian: 0.67 AoV VTI: 0.24 AoV Pk Grad: 5.00 Aov Mn Grad: 2.00 PATO Cont.VTI: 4.35 LVOT LVOT Pk Sebastian: 1.19 LVOT Mn Sebastian: 0.70 LVOT VTI: 0.23 LVOT Pk Grad: 6.00 LVOT Mn Grad: 3.00 LVOT Diam: 2.40 LVOT Area: 4.52 Diastolic Function MV Pk E: 0.45 MV Pk A: 0.67 E/A: 0.70 E'Medial: 7.07 E/E' Med: 6.40 E' Laterial: 7.51 E/E' Lat: 6.00 Right Ventricle TAPSE (mm): 23.00 TVS' Sebastian: 10.00 Tricuspid Valve TR Pk Sebastian: 2.01 TR Pk Grad: 16.00 Great Vessels Aorta Ao Root-2D: 4.30 2.0-3.7 cm Ao Asc: 4.20 2.1-3.4 cm Pulmonary Valve PV Pk Sebastian: 1.20 Peak PV Grad: 6.00 Updated in Other Vendor System with Status of Final David Merlos MD electronically signed on 02/03/2021 4:25:33 PM with status of Final
== END ==
LOC: HO.CARD 14:07
PROVIDERS: PCP Internal Medicine; Visit Provider Internal Medicine
DX: R06.02 Shortness of breath (principal)
CPT/HCPCS: 93306

== ENCOUNTER → 2021-02-28 14:03 | Outpatient (BNVA) | payer MEDICARE, SELFPAY | PROVIDERS: PCP Internal Medicine; Referring Provider Internal Medicine; Visit Provider Nurse Practitioner Family | DX: K59.04 Chronic idiopathic constipation (principal); R13.10 Dysphagia, unspecified; G20 Parkinson's disease; I10 Essential (primary) hypertension; I35.0 Nonrheumatic aortic (valve) stenosis; E78.5 Hyperlipidemia, unspecified; E78.00 Pure hypercholesterolemia, unspecified; Z88.8 Allergy status to other drugs, medicaments and biological substances; F17.210 Nicotine dependence, cigarettes, uncomplicated; Z86.79 Personal history of other diseases of the circulatory system | CPT/HCPCS: 99212 ==

== ENCOUNTER 2021-07-15 10:23 | Day surgery (SDC) | payer MEDICARE, SELFPAY ==
[2021-07-10 14:21] VITALS: BMI 29.8
--- NOTE | 2021-07-14 10:20 | HO.ANESPROP2 ---
Documented by User: Cristy Roberto NP 07/14/21 10:24 HPI - Anesthesia Eval Consult details Narrative: 66yo M for Upper Endoscopy and Colonoscopy Parkinsons Low cardiac risk per cardiology [facility] Active Problems Active Problems: All Active Problems (Updated 04/02/21 @ 11:22 by Elisabet Ochoa MD) Constipation (Acute) Spondylosis of lumbar spine (Acute) SOB (shortness of breath) (Acute) Preoperative cardiovascular examination (Acute) Complex regional pain syndrome of right upper extremity (Acute) Rotator cuff arthropathy of right shoulder (Acute) Cervical radiculopathy (Acute) Encounter for screening for lung cancer (Acute) Hyperlipidemia (Acute) Annual physical exam (Acute) Smoker (Acute) Osteoarthritis of left hand (Acute) Trigger finger, right middle finger (Acute) Parkinson disease (Acute) Chest pain (Acute) Pneumonia (Acute) Axillary nerve palsy (Acute) Acute bursitis of left shoulder (Acute) Past Medical History Medical History Acute bursitis of left shoulder Annual physical exam Axillary nerve palsy Complex regional pain syndrome of right upper extremity Constipation COPD (chronic obstructive pulmonary disease) Encounter for screening for lung cancer Family history of ischemic heart disease and other diseases of the circulatory system Hyperlipidemia Nonrheumatic aortic (valve) insufficiency Parkinson disease Pneumonia Pure hypercholesterolemia, unspecified Smoker Spondylosis of lumbar spine Family History Family History Father CVD (cardiovascular disease) Mother CVD (cardiovascular disease) Brother No problems noted. Brother Brain cancer Sister No problems noted. Sister MRSA (methicillin resistant Staphylococcus aureus) Daughter No problems noted. Surgical History Surgical History History of arthroscopy of shoulder History of colonoscopy History of esophagogastroduodenoscopy (EGD) History of right hip replacement History of surgery History of total hip arthroplasty Social History Social History Alcohol intake: current Alcohol intake frequency: a few times a week Alcohol type: beer Patient Tobacco Use Status: Current everyday Tobacco user Tobacco use type: Cigarette Cigarette Packs Per Day: 0.5 Use of substances other than those prescribed or required for medical reasons: Yes Substance Use Frequency: Occasionally Are you DNR?: No Advance Directives: No Advance Directives Information Provided: Yes Current occupational status: employed 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 The ? calculated ejection fraction is 66% by biplane method. ? - No obvious valvular pathology seen on this study.? - There is mild dilatation of the ascending aorta measuring 4.20 cm.?? EKG 12/2020 sinus rhythm at 66/Min; sinus arrhythmia, PACs; incomplete right bundle-branch block Assessment and Plan Assessment Anesthesia Assessment: Chart Reviewed Documented by User: Jose Guadalupe Mack MD 07/15/21 11:16 [facility] Past Medical History Medical History Acute bursitis of left shoulder Annual physical exam Axillary nerve palsy Complex regional pain syndrome of right upper extremity Constipation COPD (chronic obstructive pulmonary disease) Encounter for screening for lung cancer Family history of ischemic heart disease and other diseases of the circulatory system Hyperlipidemia Nonrheumatic aortic (valve) insufficiency Parkinson disease Pneumonia Pure hypercholesterolemia, unspecified Smoker Spondylosis of lumbar spine Family History Family History Father CVD (cardiovascular disease) Mother CVD (cardiovascular disease) Brother No problems noted. Brother Brain cancer Sister No problems noted. Sister MRSA (methicillin resistant Staphylococcus aureus) Daughter No problems noted. Family history of problems with anesthesia: No Surgical History Surgical History History of arthroscopy of shoulder History of colonoscopy History of esophagogastroduodenoscopy (EGD) History of right hip replacement History of surgery History of total hip arthroplasty Social History Social History Alcohol intake: current Alcohol intake frequency: a few times a week Alcohol type: beer Patient Tobacco Use Status: Current everyday Tobacco user Tobacco use type: Cigarette Cigarette Packs Per Day: 0.5 Use of substances other than those prescribed or required for medical reasons: Yes Substance Use Frequency: Occasionally Are you DNR?: No Advance Directives: No Advance Directives Information Provided: Yes Current occupational status: employed 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 occupation: Right Handed Meds Allergies Allergy/AdvReac Type Severity Reaction Status Date / Time amlodipine Allergy Unknown unknown Verified 04/02/21 11:00 Home Medications Medication Instructions Recorded Confirmed Last Taken Type carbidopa 25 mg-levodopa 100 mg 2 tab PO 5XD 07/15/21 07/15/21 Unknown History tablet Exam Airway Mallampati Class: II TM Dist: >3cm Denture: Upper Assessment and Plan Assessment Anesthesia Assessment: Anesthesia Plan Discussed Final Anesthetic Review Family History of Problems with Anesthesia: No NPO: Yes ASA Class: III Final Preanesthetic Review: No Changes in Pt Med Stat, Meds/Allgs Chart Reviewed, Consent Obtained/Reviewed and Anes Risks/Benef Reviewed Patient Risk: Intermediate Procedure Risk: Low Anesthetic Plan Anesthetic Plan: MAC: Disposition: Standard PACU
[2021-07-15 11:03] VITALS: BMI 29.8
[2021-07-15 11:05] VITALS: BP 127/84; PULSE 66; RESP 18; TEMP 36.3; O2SAT 98
[2021-07-15] MEDS: Lactated Ringers 1,000 ML 100 ML IVCONT (11:10)
--- NOTE | 2021-07-15 11:15 | MHC.SHP ---
Pre-Procedural Eval Section A Date of Service: 07/15/21 Section B Chief Complaint: Dysphagia,screening Relevant Family History (Specify if Yes): No Relevant Social History: None Present Medications: see Short Stay Collaborative assessment Medical History: Significant History (Acute bursitis of left shoulder Annual physical exam Axillary nerve palsy Complex regional pain syndrome of right upper extremity Constipation COPD (chronic obstructive pulmonary disease) Encounter for screening for lung cancer Family history of ischemic heart disease and other diseases of the circu) History of Previous Operations: Relevant previous surgery/procedure and date(s) (History of arthroscopy of shoulder History of colonoscopy History of esophagogastroduodenoscopy (EGD) History of right hip replacement History of surgery History of total hip arthroplasty) Allergies: Allergies Allergy/AdvReac Type Severity Reaction Status Date / Time amlodipine Allergy Unknown unknown Verified 04/02/21 11:00 Review of Systems Sugical H&P ROS: Negative: Constitution, Cardiovascular, Respiratory, Neurological, Psychiatric, Hem-Onc, Allergic/Immunologic, Gastrointestinal, Genitourinary, Musculoskeletal, Integumentary, Endocrine and Eyes/Ears/Nose/Throat Exam Surgical H&P Exam: Normal: HEENT, Normal: Heart, Normal: Lungs, Normal: Extremities, Normal: Abdomen and Normal: Skin and Significant Findings: Neurological (parkinsons ) Plan Diagnosis/Plan: Unchanged I have reviewed the history and physical and performed a pertinent physical examination on my patient. No changes have occurred unless specified.
--- NOTE | 2021-07-15 11:17 | P.OP_ITS ---
Operative Note Operative Note Date of Service: 07/15/21 Narrative: Operative Information Procedure Description: EGD, Colonoscopy Indication: dysphagia, screening colonoscopy Anesthesia: MAC FLEXIBLE TRANSORAL UPPER GASTROINTESTINAL ENDOSCOPY AND COLONOSCOPY PROCEDURE NOTE UPPER ENDOSCOPY Consent: Indications for the procedure and potential complications of bleeding, perforation, reaction to medications and missed diagnosis were discussed with the patient and informed consent was obtained. Instrument: Olympus GIF H 190 J mid size upper endoscope Monitoring: Vital signs and clinical assessment, continuous EKG monitoring, Pulse oximetry, Carbon Dioxide monitoring and blood pressure monitoring were done throughout the procedure. Procedure: The patient was placed in the left lateral decubitis position and pre-procedure medications were administered and a bite block was placed. The endoscope was inserted into the mouth and advanced under direct vision to the third part of duodenum. A careful inspection was made as the upper endoscope was withdrawn including a retroflexed examination of the proximal stomach; Findings and interventions are described below. Findings: Larynx:normal Esophagus: GE junction at 40 cm, diaphragm hiatus at 43 cm, consistent with 3 cm sliding hiatal hernia. there was a long segment of barretts appearing mucosa C2, M5 by King[place] criteria, random bx taken, there was also esophagitis at the junction of the Barretts mucosa with the squamous mucosa. No nodularity noted. Stomach: Patchy gastritis. Biopsies were obtained. Grade 2 flap valve on retroflexed examination of the cardia. Duodenum: Normal bulb and descending duodenum, bx taken, Intervention: Biopsies as noted above COLONOSCOPY Instrument: Olympus variable stiffness adult scope 190L Colonoscopy Monitoring: Vital signs and clinical assessment, continuous EKG monitoring, Pulse oximetry, Carbon Dioxide monitoring and blood pressure monitoring were done throughout the procedure. Colon withdrawal time was 16 minutes. Procedure: The patient was placed in the left lateral decubitis position and pre-procedure medications were administered. After a digital rectal examination of the ano-rectum, the video colonoscope was inserted into the rectum and advanced through the colon to the cecum/TI. The colonoscope was slowly withdrawn in a retrograde panoramic fashion and the colon mucosa was carefully examined including a retroflexed view of the rectum. Findings and interventions are described below. Procedure Difficulty:moderate, pressure applied Findings: Terminal Ileum-normal Cecum: x 4 sessile polyps noted measuring from 6-10 mm. x2 were removed with cold snare and x2 with cold forceps. Ascending Colon: x 3 sessile polyps 6-8 mm removed with cold forceps Transverse Colon -normal Descending Colon: 10 mm semi pedunculated polyp removed with cold snare Sigmoid Colon: normal Rectum: Retroflexion with medium sized internal hemorrhoids, grade I Anorectum - normal Colon preparation: [place] Bowel Preparation Scale Right colon; 3 Transverse colon: 2 Left colon; 2 (0 = Unprepared colon segment with mucosa not seen due to solid stool that cannot be cleared. 1 = Portion of mucosa of the colon segment seen, but other areas of the colon segment not well seen due to staining, residual stool and/or opaque liquid. 2 = Minor amount of residual staining, small fragments of stool and/or opaque liquid, but mucosa of colon segment seen well. 3 = Entire mucosa of colon segment seen well with no residual staining, small fragments of stool or opaque liquid) Impression and Post Procedure Diagnosis: Endoscopy Findings: Barretts esophagus gastritis esophagitis hiatal hernia Colonoscopy Findings: polyps internal hemorrhoids Plan: Await Pathology results Repeat Colonoscopy in 1-2 years due to polyp burden or earlier if clinically indicated High fiber diet leaflet avoid straining at stool, epsom salts and sitz bath, anusol supps or cream repeat EGD after 3 months of PPI therapy, and bx per Salyer protocol as well as WATS 3D brushings. Above findings were reviewed with the patient and relevant handouts were provided if indicated.
--- NOTE | 2021-07-15 11:17 | PM.OP ---
Brief Operative Note Date of Service: 07/15/21 Pre-op diagnosis: dysphagia, screening colonoscopy Post-op diagnosis: same Procedure: see op note Surgeon: Rowan Rouse MD Anesthesia: MAC Was an Motor Grader Rough Grade used for this Procedure?: No Estimated blood loss (mL): 0 Condition: stable Disposition: PACU
[2021-07-15 12:28] VITALS: BP 115/78; PULSE 54; RESP 16; TEMP 36.1; O2SAT 98
[2021-07-15 12:43] VITALS: BP 122/78; PULSE 58; RESP 16; TEMP 36.6; O2SAT 99
[2021-07-15 12:58] VITALS: BP 108/81; PULSE 59; RESP 16; O2SAT 98
--- NOTE | 2021-07-15 13:08 | PC.NURSE ---
MD BECKETT BY BEDSIDE EVAL PATIENT.
== END 2021-07-15 13:53 | disposition home or self-care (01) ==
PROVIDERS: PCP Internal Medicine; Visit Provider Internal Medicine Gastroenterology
PROC: (CPT 45385; principal; 2021-07-15 11:50)
DX: Z12.11 Encounter for screening for malignant neoplasm of colon (principal); D12.0 Benign neoplasm of cecum; D12.2 Benign neoplasm of ascending colon; K51.40 Inflammatory polyps of colon without complications; K64.0 First degree hemorrhoids; K59.04 Chronic idiopathic constipation; R13.10 Dysphagia, unspecified; K22.70 Barrett's esophagus without dysplasia; K29.50 Unspecified chronic gastritis without bleeding; K20.80 Other esophagitis without bleeding; K29.80 Duodenitis without bleeding; K44.9 Diaphragmatic hernia without obstruction or gangrene; J44.9 Chronic obstructive pulmonary disease, unspecified; G20 Parkinson's disease; E78.5 Hyperlipidemia, unspecified; Z79.899 Other long term (current) drug therapy; Z96.643 Presence of artificial hip joint, bilateral; F17.210 Nicotine dependence, cigarettes, uncomplicated; Z98.890 Other specified postprocedural states
CPT/HCPCS: 45385; 45380; 43249; 43239; 88305; 88342; C1726

== ENCOUNTER → 2021-07-18 09:58 | Outpatient (BNVA) | payer MEDICARE, SELFPAY | PROVIDERS: PCP Internal Medicine; Visit Provider Nurse Practitioner Family | DX: G20 Parkinson's disease (principal); K59.00 Constipation, unspecified; K11.7 Disturbances of salivary secretion; W19.XXXA Unspecified fall, initial encounter | CPT/HCPCS: Q3014 ==

== ENCOUNTER 2021-08-04 11:02 | Emergency (ER) | payer MEDICARE, SELFPAY ==
--- NOTE | ~2021-08-04 | CT_ITS ---
EXAMINATION: CT HEAD WITHOUT CONTRAST CLINICAL INFORMATION: Fall, trauma, headache COMPARISON: CT had noncontrast 03/11/2019 TECHNIQUE: Contiguous axial imaging was performed from the skull base to vertex without intravenous administration of contrast. Additional 2-D coronal and sagittal reformatted images are generated on the CT workstation and uploaded to PACS. This CT examination was performed using dose optimization techniques as appropriate, variously including the following: *Automated exposure control *Adjustment of mA and/or kV according to patient size (this includes techniques or standardized protocols for targeted exams where dose is matched to indication/reason for exam; i.e. extremities or head) *Use of iterative reconstruction technique DLP: 723 mGy-cm FINDINGS: There is no intracranial hemorrhage, hematoma, or extra-axial fluid collection. The ventricles are normal in size. There is no hydrocephalus, edema, or mass effect. The mendes-white matter differentiation appears well preserved . There is no visible acute territorial infarct or mass lesion. The calvarium appears intact. There is no pneumocephalus or orbital emphysema. The visualized sinuses and middle ears and mastoid air cells show no significant mucosal thickening. There are no air-fluid levels. CT/CT head/brain wo con IMPRESSION: No acute intracranial abnormality.
--- NOTE | ~2021-08-04 | CT_ITS ---
EXAMINATION: CT CERVICAL SPINE WITHOUT CONTRAST CLINICAL INFORMATION: Fall, trauma, pain COMPARISON: CT C-spine 03/11/2019 TECHNIQUE: Multidetector volumetric CT imaging of the cervical spine is performed without contrast in the axial plane. Additional 2D reformatted coronal and sagittal images are generated on the CT workstation and uploaded to PACS. This CT examination was performed using dose optimization techniques as appropriate, variously including the following: *Automated exposure control *Adjustment of mA and/or kV according to patient size (this includes techniques or standardized protocols for targeted exams where dose is matched to indication/reason for exam; i.e. extremities or head) *Use of iterative reconstruction technique DLP: 566 mGy-cm FINDINGS: There is mild motion artifact with mild blurring. There is no vertebral compression fracture, fracture line, spondylolisthesis, or prevertebral soft tissue swelling. The craniocervical junction appears normal. The odontoid appears intact. There are degenerative changes between anterior arch C1 and the dens. Degenerative disc changes are greatest at C5-C6 and at C6-C7. There are some subtle endplate erosive changes without osteopenia at C6-C7. Bridging osteophytes are present. No perched facet. No apical pneumothorax or subcutaneous emphysema. CT/CT cervical spine wo con IMPRESSION: -Exam degraded by mild patient motion. -No acute traumatic bony abnormality. -Degenerative disc changes lower cervical spine with some endplate erosive changes C6-C7. No osteopenia. No prevertebral or paraspinal soft tissue swelling.
[2021-08-04 11:21] VITALS: BP 152/88; PULSE 69; RESP 18; TEMP 36.5; O2SAT 97; BMI 29.8
[2021-08-04 12:03] VITALS: BP 125/75; PULSE 60; RESP 18; TEMP 36.4; O2SAT 97
--- NOTE | 2021-08-04 12:19 | ED.NECK ---
HPI - Neck Pain/Injury General Chief Complaint: Neck Pain/Injury Stated Complaint: neck pain Time Seen by Provider: 08/04/21 12:00 Source: patient Mode of arrival: ambulatory Limitations: no limitations History of Present Illness MD complaint: neck pain and other (headache) Onset (ago): month(s) (2) Place: home Radiation: right lateral Severity: moderate Quality: dull and aching Duration: constant Relieving factors: none Exacerbating factors: other (he falls a lot unsure if this is part of it) Context: fall Associated symptoms: headache Treatments prior to arrival: none Related Data Home Medications Medication Instructions Recorded Confirmed carbidopa 25 mg-levodopa 100 mg 2 tab PO 5XD 07/15/21 07/18/21 tablet Previous Rx's Medication Instructions Recorded albuterol sulfate 90 mcg/actuation 2 puff INHALATION Q4-6H PRN #6.7 g 07/18/20 aerosol inhaler atorvastatin 10 mg tablet 10 mg PO DAILY #90 tab 09/04/20 Hospital bed #1 ea 10/17/20 methylcellulose (laxative) 500 mg 500 mg PO DAILY #30 tab 11/12/20 tablet (Citrucel) sennosides 8.6 mg tablet (Natural 17.2 mg PO BEDTIME PRN #60 tab 02/28/21 Senna Laxative) pramipexole 1 mg tablet 1.5 mg PO QID 30 Days #180 tab 05/02/21 pantoprazole 40 mg tablet,delayed 40 mg PO BID #60 tab 07/15/21 release lorazepam 0.5 mg tablet 0.5 - 1 mg PO BEDTIME 30 Days #60 07/18/21 tab selegiline HCl 5 mg tablet 5 mg PO BID 30 Days #60 tab 07/18/21 sennosides 8.6 mg capsule 17.2 mg PO BEDTIME PRN 30 Days #60 07/18/21 cap oxycodone-acetaminophen 5 mg-325 1 tab PO Q8H PRN 30 Days #90 tab 08/01/21 mg tablet (Percocet) lidocaine 5 % topical patch 1 patch TOPICAL DAILY PRN #30 ea 08/04/21 Allergies Allergy/AdvReac Type Severity Reaction Status Date / Time amlodipine Allergy Unknown unknown Verified 08/04/21 11:21 Review of Systems Review of Systems: Constitutional : No Fever, No Chills ENT/Mouth : No Ear Pain, No Hoarseness, No sore throat Eyes: No Eye Pain, No Swelling, No Redness, No Foreign Body Cardiovascular : No Chest Pain, No SOB Respiratory : No Cough, No Dyspnea Gastrointestinal : No Nausea, No Vomiting, No Diarrhea, No abdominal Pain Genitourinary : No Dysuria, No Hematuria Musculoskeletal : no joint pain, No Myalgias, No Joint Swelling, pos neck pain Skin : No Skin lacerations, No rash Neuro : No Weakness, No Numbness, No Loss of Consciousness, No Dizziness, No Headache Psych : No Anxiety/Panic, No Depression Heme/Lymph: no easy bruising, no Lymphadenopathy Endocrine : No Polyuria, No Polydipsia All other systems reviewed and are negative [facility] Past Medical History Attestation statement: The following information was validated with the patient. Medical History Acute bursitis of left shoulder Annual physical exam Axillary nerve palsy Complex regional pain syndrome of right upper extremity Constipation COPD (chronic obstructive pulmonary disease) Encounter for screening for lung cancer Family history of ischemic heart disease and other diseases of the circulatory system Hyperlipidemia Nonrheumatic aortic (valve) insufficiency Parkinson disease Pneumonia Pure hypercholesterolemia, unspecified Smoker Spondylosis of lumbar spine Surgical History History of arthroscopy of shoulder History of colonoscopy History of esophagogastroduodenoscopy (EGD) History of right hip replacement History of surgery History of total hip arthroplasty Family History Family History Father CVD (cardiovascular disease) Mother CVD (cardiovascular disease) Brother No problems noted. Brother Brain cancer Sister No problems noted. Sister MRSA (methicillin resistant Staphylococcus aureus) Daughter No problems noted. Social History Social History Alcohol intake: current Alcohol intake frequency: a few times a week Alcohol type: beer Patient Tobacco Use Status: Current everyday Tobacco user Tobacco use type: Cigarette Cigarette Packs Per Day: 0.5 Advance Directives Date on File: 07/18/20 Current occupational status: employed Current occupation: Right Handed Physical Exam Vital Signs: Vital Signs: Last Vital Signs Temp 97.5 F 08/04/21 14:33 Pulse 53 08/04/21 14:33 Resp 18 08/04/21 14:33 BP 156/85 H 08/04/21 14:33 Pulse Ox 96 08/04/21 14:33 BMI result Body Mass Index 29.8 Appearance: Alert. Oriented X3. No acute distress. Eyes: Pupils equal, round and reactive to light. ENT: Pharynx normal. Neck: R lateral neck - C3-C6 ttp but no mass felt no trauma seen, ttp along occipital area as well no meningeal signs CVS: Normal heart rate and rhythm. Pulses normal. Respiratory: No respiratory distress. Breath sounds normal. Abdomen: Soft and nontender. Skin: Skin warm and dry. Normal skin color. Normal skin turgor. Extremities: No lower extremity edema. No calf ttp Neuro: Oriented X 3. No motor deficit. No sensory deficit. mild rigidity, slow steady speech Course Course Course Narrative: CT scans negative for acute findings - stable for DC will Rx lidocaine patch MDM - Neck Pain/Injury MDM Narrative Medical decision making narrative: 66 yo female with hx of falls due to parkinson's disease notes 2 months of R lateral neck pain and headaches post fall - at this time he is not on DOAC will need CT head/neck for trauma. He declines wanting any form of pain control at this time. Dispo per results and findings. Discharge Plan Discharge Clinical Impression: DDD (degenerative disc disease), cervical Patient Disposition: Home, Self-Care Instructions: Degenerative Disc Disease (ED) Additional Instructions: return to ED for any worsening symptoms or concerns Prescriptions: New lidocaine 5 % adhesive patch,medicated 1 patch topical DAILY PRN (Reason: pain) Qty: 30 0RF Rx Instructions: leave on most painful area for up to 12 hrs No Action atorvastatin 10 mg tablet 10 mg PO DAILY Qty: 90 3RF (DME) Hospital bed See Rx Instructions .Route .MEDSUPPLY Qty: 1 0RF Rx Instructions: As directed pramipexole 1 mg tablet 1.5 mg PO QID 30 Days Qty: 180 3RF oxycodone-acetaminophen [Percocet] 5-325 mg tablet 1 tab PO Q8H PRN (Reason: pain) 30 Days Qty: 90 0RF albuterol sulfate 90 mcg/actuation HFA aerosol inhaler 2 puff inhalation Q4-6H PRN (Reason: shortness of breath or wheezing) Qty: 6.7 0RF carbidopa-levodopa 25-100 mg tablet 2 tab PO 5XD 0RF pantoprazole 40 mg tablet,delayed release (DR/EC) 40 mg PO BID Qty: 60 3RF Citrucel 500 mg tablet 500 mg PO DAILY Qty: 30 2RF Rx Instructions: take it with full glass of water selegiline HCl 5 mg tablet 5 mg PO BID 30 Days Qty: 60 3RF Rx Instructions: administer with breakfast and lunch lorazepam 0.5 mg tablet 0.5 - 1 mg PO BEDTIME 30 Days Qty: 60 2RF sennosides 8.6 mg capsule 17.2 mg PO BEDTIME PRN (Reason: constipation) 30 Days Qty: 60 6RF sennosides [Natural Senna Laxative] 8.6 mg tablet 17.2 mg PO BEDTIME PRN (Reason: constipation) Qty: 60 5RF Referrals: Elisabet Ochoa MD [Primary Care Provider] - 3 days (if not better)
[2021-08-04 14:33] VITALS: BP 156/85; PULSE 53; RESP 18; TEMP 36.4; O2SAT 96
== END 2021-08-04 15:38 | disposition home or self-care (01) ==
PROVIDERS: Emergency Provider Emergency Medicine; PCP Internal Medicine
DX: M50.31 Other cervical disc degeneration, high cervical region (principal); R51.9 Headache, unspecified; Z79.899 Other long term (current) drug therapy; F17.210 Nicotine dependence, cigarettes, uncomplicated; Z71.6 Tobacco abuse counseling
CPT/HCPCS: 70450; 72125; 99283; 99284

== ENCOUNTER 2021-08-19 08:47 | Outpatient (REF) | payer MEDICARE, SELFPAY | END 2021-08-19 08:48 | disposition home or self-care (01) | LOC: HO.HOSX 08:47 | PROVIDERS: Visit Provider Orthopaedic Surgery | DX: Z13.89 Encounter for screening for other disorder (principal) ==

== ENCOUNTER → 2021-09-02 10:23 | Outpatient (BNVA) | payer MEDICARE, SELFPAY | PROVIDERS: PCP Internal Medicine; Visit Provider Orthopaedic Surgery | DX: K59.04 Chronic idiopathic constipation (principal); K22.70 Barrett's esophagus without dysplasia; K21.9 Gastro-esophageal reflux disease without esophagitis; D12.6 Benign neoplasm of colon, unspecified; Z09 Encounter for follow-up examination after completed treatment for conditions other than malignant neoplasm; M65.332 Trigger finger, left middle finger | CPT/HCPCS: 99212; J1100 ==

== ENCOUNTER → 2021-10-14 11:02 | Outpatient (BNVA) | payer MEDICARE, SELFPAY | PROVIDERS: PCP Internal Medicine; Visit Provider Nurse Practitioner Family | DX: G20 Parkinson's disease (principal); R29.6 Repeated falls; Z79.899 Other long term (current) drug therapy | CPT/HCPCS: 99212 ==

== ENCOUNTER 2021-10-21 10:00 | Outpatient (RCR) | payer MEDICARE, SELFPAY ==
--- NOTE | 2021-09-30 15:16 | MHC.PT.EP ---
[facility] [place] Office [place] Office [place] [facility] [address] [phone] F: [phone] F: [phone] F: [phone] F: [phone] Physical Therapy Plan of Care Date of Evaluation: Date of Surgery: N/A Diagnosis: cervicalgia neck pain Assessment: Pt is a pleasant 66yo M with PMH including Parkinson's who presents to PT with neck pain for ~1.5 months with occasional headaches. Pt presents to Pt with current impairments in pain, decreased cervical ROM all planes, decreased R shoulder ROM, soft tissue restrictions, and impaired posture. He is limited functionally by cervical rotation, driving, and overhead ADLs. He is a good candidate for skilled PT in order to address current impairments to facilitate return to PLOF. He will be seen 2x/week for 4 weeks and will be reassessed at that time. Frequency and Duration: The patient will be seen 2x/week for 4 weeks Short Term Goals: Pt will be I with HEP to promote self management of symptoms Pt will improve B cervical rotation by at least 5 degrees Mcc Goals: Pt will improve cervical rotation B to WFL to assist with functional tasks such as driving Pt will demonstrate improvements in function as evidenced by statistically significant improvement in Neck Pain and Disability outcome measure. Treatment Plan: Modalities to reduce pain, spasms and effusion. Manual therapy to restore motion and function. Therapeutic exercise to improve strength and flexibility. Neuromuscular re-education for posture and balance. Therapeutic activities to return to functional activities of daily living. Electronically signed by: Arti Jarvis, PT, DPT Please sign and return to therapist. Thank you for your referral.
--- NOTE | 2021-11-27 15:16 | MHC.PT.DC ---
[facility] [place] [facility] [place] Office [place] Office [address] [phone] F: [phone] F: [phone] F: [phone] F: [phone] Physical Therapy Discharge Report Diagnosis: cervicalgia neck pain Date of Surgery: N/A Date of Evaluation: 09/30/21 Date of Discharge: 11/27/21 Treatments to Date: 4 Cancellations to Date: 2 No Shows to Date: Discharge Status: Patient Elected to Stop Discharge Summary: Pt was seen for PT from 09/30/21-10/21/21. He attended 4 PT sessions and his last attended appointment was 10/21/21. Pt called to cancel his last appointment as his license was suspended. Pt has not attended PT in > 30 days. Pt is being D/C from skilled PT at this time. Pt current level of function unknown at this time. Electronically signed by: Arti Jarvis, PT, DPT Please sign and return to therapist. Thank you for your referral.
== END 2021-11-27 15:16 | disposition home or self-care (01) ==
LOC: HO.PT 10:00
PROVIDERS: PCP Internal Medicine; Visit Provider Internal Medicine
DX: M54.2 Cervicalgia (principal)
CPT/HCPCS: 97110; 97140; 97162

== ENCOUNTER → 2021-12-16 08:28 | Outpatient (BNVA) | payer MEDICARE, SELFPAY | PROVIDERS: PCP Internal Medicine; Visit Provider Nurse Practitioner Family | DX: G20 Parkinson's disease (principal); K11.7 Disturbances of salivary secretion; W19.XXXA Unspecified fall, initial encounter | CPT/HCPCS: 99212 ==

== ENCOUNTER → 2021-12-30 11:41 | Outpatient (BNVA) | payer MEDICARE, SELFPAY | PROVIDERS: PCP Internal Medicine; Referring Provider Internal Medicine; Visit Provider Nurse Practitioner Family | DX: K59.04 Chronic idiopathic constipation (principal); K21.9 Gastro-esophageal reflux disease without esophagitis; Z79.899 Other long term (current) drug therapy | CPT/HCPCS: 99212 ==

== ENCOUNTER → 2022-01-01 10:22 | Outpatient (BNVA) | payer MEDICARE, SELFPAY | PROVIDERS: PCP Internal Medicine; Visit Provider Orthopaedic Surgery | DX: M12.811 Other specific arthropathies, not elsewhere classified, right shoulder (principal) | CPT/HCPCS: 99212 ==

== ENCOUNTER → 2022-01-12 10:41 | Outpatient (REF) | payer MEDICARE, SELFPAY ==
--- NOTE | 2022-01-12 10:44 | CA_ITS ---
Transthoracic Echocardiogram Patient (Last, First, Middle): Ko Crouch A Gender: Male Date of : 1955 Age: 66 Procedure Date: 01/12/2022 Procedure Type: Transthoracic Echocardiogram Location: OP Height: 182.88 cm Weight: 99.79 kg BSA: 2.22 m2 Heart Rate: bpm BP: 117 / 73 mmHg Wool Hat Flanger: ACE Referring MD: David Merlos MD Gemologist: Byron Gamez MD Symptoms: I77.810 - Thoracic aortic ectasia Study Quality: Adequate ECG Rhythm: Sinus Conclusions: - 1. Normal LV systolic function with impaired relaxation filling pattern 2. Trivial aortic regurgitation 3. Mildly dilated ascending aorta at 4.3 cm 4. Normal RV systolic pressure 5. No pericardial effusion Findings Left Ventricle Normal left ventricular size, thickness, and systolic function. The visually estimated ejection fraction is between 60-65%. Spectral Doppler is indicative of an impaired relaxation filling pattern. E/E prime ratio is <8, consistent with normal filling pressures. Evidence suggests grade I (mild) diastolic dysfunction. Right Ventricle Normal right ventricular cavity size and systolic function. Atria The left atrium is normal in size. Interatrial shunt cannot be excluded. The right atrium is normal in size. Aortic Valve There is mild calcification of the aortic valve. There is no aortic valve stenosis. There is trace (trivial) aortic valve regurgitation. Mitral Valve There is mild anterior and posterior mitral leaflet thickening. There is trace mitral valve regurgitation. There is no mitral valve stenosis. Pulmonic Valve The pulmonic valve was not well visualized. Tricuspid Valve Likely normal tricuspid valve structure and function. The right ventricular systolic pressure is normal. There is no evidence of pulmonary hypertension. Great Vessels The pulmonary artery was not well visualized. There is mild dilatation of the ascending aorta measuring 4.30 cm. Venous The inferior vena cava is normal in size. Pericardium/Pleural There is no evidence of pericardial effusion. Prior Study Comparison No significant change compared to prior study dated: 02/03/2021. Measurements 2D Linear Measurements IVSd: 1.09 0.6-0.9/0.6-1.0 cm LVIDd: 4.40 3.9-5.3/4.2-5.9 cm LVIDd Index: 1.98 2.4-3.2/2.2-3.1 cm/m2 LVIDs: 2.89 2.0-3.6 cm LVPWd: 1.05 0.7-1.1 cm LA Diam: 3.80 2.7-3.8/3.0-4.0 cm LAIDs Index: 1.71 1.5-2.3 cm/m2 LV Mass: 202.32 67-162/88-224 g LV Mass Index: 91.14 43-95/49-115 g/m2 LVOT Diam: 2.40 3.0+(-)1.3 cm 2D Systolic Function EF 4C: 61.50 >55% EF 2C: 59.60 >55% EF BiP: 61.80 >55% Mitral Valve MV Pk E: 0.57 MV PK A: 0.59 MV Decel Time: 287.00 E/A: 1.00 E'Lateral: 7.51 E'Medial: 4.90 E/E' Med: 11.60 E/E' Lat: 7.50 PHT: 84.00 MVA PHT: 2.62 Decel Page: 1.97 Aortic Valve AoV Pk Sebastian: 1.46 AoV Mn Sebastian: 0.94 AoV VTI: 0.35 AoV Pk Grad: 9.00 Aov Mn Grad: 4.00 PATO Cont.VTI: 4.16 LVOT LVOT Pk Sebastian: 1.45 LVOT Mn Sebastian: 0.83 LVOT VTI: 0.33 LVOT Pk Grad: 8.00 LVOT Mn Grad: 3.00 LVOT Diam: 2.40 LVOT Area: 4.52 Diastolic Function MV Pk E: 0.57 MV Pk A: 0.59 E/A: 1.00 E'Medial: 4.90 E/E' Med: 11.60 E' Laterial: 7.51 E/E' Lat: 7.50 Right Ventricle TAPSE (mm): 20.30 TVS' Sebastian: 9.48 Tricuspid Valve TR Pk Sebastian: 2.27 TR Pk Grad: 21.00 RA Press: 3.00 RVSP: 24.00 Great Vessels Aorta Sinus of Valsalva: 4.48 2.0-3.[address] [place]: 4.15 1.7-3.4 cm Ao Asc: 4.30 2.1-3.4 cm Updated in Other Vendor System with Status of Final Byron Gamez MD electronically signed on 01/12/2022 7:02:49 PM with status of Final
== END ==
LOC: HO.CARD 10:41
PROVIDERS: PCP Internal Medicine; Visit Provider Internal Medicine
DX: I77.810 Thoracic aortic ectasia (principal)
CPT/HCPCS: 93306

== ENCOUNTER → 2022-03-11 14:42 | Outpatient (BNVA) | payer MEDICARE, SELFPAY | PROVIDERS: PCP Internal Medicine; Referring Provider Nurse Practitioner Family; Visit Provider Surgery | DX: G20 Parkinson's disease (principal) | CPT/HCPCS: 99202 ==

== ENCOUNTER 2022-03-31 08:36 | Day surgery (SDC) | payer MEDICARE, SELFPAY ==
--- NOTE | 2022-03-19 | ECG_ITS ---
Test Reason : copd parkinson Blood Pressure : / mmHG Vent. Rate : 057 BPM Atrial Rate : 057 BPM P-R Int : 178 ms QRS Dur : 098 ms QT Int : 436 ms P-R-T Axes : 079 044 053 degrees QTc Int : 424 ms Sinus bradycardia with sinus arrhythmia Otherwise normal ECG When compared with ECG of 18-JUL-2020 11:59, No significant change was found Referred By: Cristy Roberto Electronically Signed By:CAMERON SAMUEL MD
[2022-03-19 12:11] VITALS: BMI 30.6
[2022-03-19 12:15] VITALS: BP 109/63; PULSE 66; RESP 22; O2SAT 97
--- NOTE | 2022-03-19 12:20 | P.CONAN_ITS ---
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 (Acute) Tubular adenoma of colon (Acute) Trigger finger, left middle finger (Acute) Frequent falls (Acute) Parkinsons disease (Acute) COPD (chronic obstructive pulmonary disease) (Acute) Neck pain (Acute) Constipation (Acute) Spondylosis of lumbar spine (Acute) Complex regional pain syndrome of right upper extremity (Acute) Encounter for screening for lung cancer (Acute) Hyperlipidemia (Acute) Annual physical exam (Acute) Smoker (Acute) Parkinson disease (Acute) Pneumonia (Acute) Axillary nerve palsy (Acute) Acute bursitis of left shoulder (Acute) Past Medical History Medical History Acute bursitis of left shoulder Annual physical exam Arthritis Axillary nerve palsy Complex regional pain syndrome of right upper extremity Constipation COPD (chronic obstructive pulmonary disease) Difficulty swallowing Encounter for screening for lung cancer Family history of ischemic heart disease and other diseases of the circulatory system Hyperlipidemia Neck pain Nonrheumatic aortic (valve) insufficiency Parkinson disease Pneumonia Pure hypercholesterolemia, unspecified Smoker Spondylosis of lumbar spine Functional capacity: uses cane/walker Family History Family History Father CVD (cardiovascular disease) Mother CVD (cardiovascular disease) Brother No problems noted. Brother Brain cancer Sister No problems noted. Sister MRSA (methicillin resistant Staphylococcus aureus) Daughter No problems noted. Family history of problems with anesthesia: No Surgical History Surgical History History of arthroscopy of shoulder History of colonoscopy History of esophagogastroduodenoscopy (EGD) History of lumbar laminectomy History of surgery History of total hip arthroplasty Hx of umbilical hernia repair History of Problems with Anesthesia: No Social History Social History Housing: House Are you a primary healthcare architect to a significant other at home: No Do you presently have visiting nurse or other home services: No Alcohol intake: current Alcohol intake frequency: holidays/special occasions only Alcohol type: beer Patient Tobacco Use Status: Current someday Tobacco user Tobacco use type: Cigarette Cigarette Packs Per Day: 0.5 Cigarettes Per Day: 2 Years Smoked: 50 e-Cigarette/Vaping Use: Never Used Use of substances other than those prescribed or required for medical reasons: No Have you been hit, kicked, punched, or otherwise hurt by someone within the past year? If so, by whom?: No Are you DNR?: No Advance Directives: Yes Advance Directives Information Provided: Yes Advance Directives on File: Yes Advance Directives Date on File: 06/03/15 Recently lost weight without trying: No Eating poorly because of decreased appetite: No Nutrition Risks: No Nutritional Risk Poor oral hygiene: No (upper & lower partials) Current occupational status: employed Current occupation: Right Handed Cognitive needs: No Hearing needs: No Vision needs: No Narrative Narrative: No recent illness No CP/SOB within limits of mobility Meds Allergies Allergy/AdvReac Type Severity Reaction Status Date / Time amlodipine Allergy Unknown pt does Verified 03/11/22 14:52 not know Home Medications Medication Instructions Recorded Confirmed Last Taken Type pantoprazole 40 mg tablet,delayed 40 mg PO BID PRN Acid Reflux 03/19/22 03/18/22 Unknown History release Exam Exam Date and Time: March 19, 2022 1220 Height,Weight and Vital Signs: Height 6 ft Weight 102.512 kg Last Vital Signs Pulse 66 03/19/22 12:15 Resp 22 H 03/19/22 12:15 BP 109/63 03/19/22 12:15 Pulse Ox 97 03/19/22 12:15 O2 Del Method 03/19/22 12:15 Pertinent Lab Results Pertinent Lab Results: Laboratory Tests 03/19/22 03/19/22 13:15 13:15 WBC 6.4 Hgb 13.6 L Hct 42.3 Plt Count 212 Sodium 139 Potassium 4.6 Chloride 101 Carbon Dioxide 30 H BUN 18 H Creatinine 0.90 Narrative Narrative: EKG 03/2022 Vent. Rate : 057 BPM ? ? Atrial Rate : 057 BPM ?? P-R Int : 178 ms? QRS Dur : 098 ms ? ? QT Int : 436 ms ? ? ? P-R-T Axes : 079 044 053 degrees ?? QTc Int : 424 ms ? Sinus bradycardia with sinus arrhythmia Otherwise normal ECG When compared with ECG of 18-JUL-2020 11:59, No significant change was found ECHO 01/2022 Conclusions: - 1. Normal LV systolic function with impaired relaxation filling pattern? 2. Trivial aortic regurgitation? 3. Mildly dilated ascending aorta at 4.3 cm? 4. Normal RV systolic pressure ? 5. No pericardial effusion ?? Airway Mallampati Class: II TM Dist: >3cm Neck ROM: Limited Partial: Upper and Lower Heart: RRR Lungs: CTAB Assessment and Plan Assessment Anesthesia Assessment: Anesthesia Plan Discussed and PAT Visit Final Anesthetic Review Family History of Problems with Anesthesia: No History of Problems with Anesthesia: No Documented by User: Yumiko Chairez MD 03/31/22 10:19 [facility] [place] Past Medical History Medical History Acute bursitis of left shoulder Annual physical exam Arthritis Axillary nerve palsy Complex regional pain syndrome of right upper extremity Constipation COPD (chronic obstructive pulmonary disease) Difficulty swallowing Encounter for screening for lung cancer Family history of ischemic heart disease and other diseases of the circulatory system Hyperlipidemia Neck pain Nonrheumatic aortic (valve) insufficiency Parkinson disease Pneumonia Pure hypercholesterolemia, unspecified Smoker Spondylosis of lumbar spine Family History Family History Father CVD (cardiovascular disease) Mother CVD (cardiovascular disease) Brother No problems noted. Brother Brain cancer Sister No problems noted. Sister MRSA (methicillin resistant Staphylococcus aureus) Daughter No problems noted. Surgical History Surgical History History of arthroscopy of shoulder History of colonoscopy History of esophagogastroduodenoscopy (EGD) History of lumbar laminectomy History of surgery History of total hip arthroplasty Hx of umbilical hernia repair Social History Social History Housing: House Are you a primary healthcare architect to a significant other at home: No Do you presently have visiting nurse or other home services: No Alcohol intake: current Alcohol intake frequency: holidays/special occasions only Alcohol type: beer Patient Tobacco Use Status: Current someday Tobacco user Tobacco use type: Cigarette Cigarette Packs Per Day: 0.5 Cigarettes Per Day: 2 Years Smoked: 50 e-Cigarette/Vaping Use: Never Used Use of substances other than those prescribed or required for medical reasons: No Have you been hit, kicked, punched, or otherwise hurt by someone within the past year? If so, by whom?: No Are you DNR?: No Advance Directives: Yes Advance Directives Information Provided: Yes Advance Directives on File: Yes Advance Directives Date on File: 06/03/15 Recently lost weight without trying: No Eating poorly because of decreased appetite: No Nutrition Risks: No Nutritional Risk Poor oral hygiene: No (upper & lower partials) Current occupational status: employed Current occupation: Right Handed Cognitive needs: No Hearing needs: No Vision needs: No Narrative Narrative: No recent illness No CP/SOB within limits of mobility Fall few days ago, no loss of conciousnes Meds Allergies Allergy/AdvReac Type Severity Reaction Status Date / Time amlodipine Allergy Unknown pt does Verified 03/11/22 14:52 not know Home Medications Medication Instructions Recorded Confirmed Last Taken Type pantoprazole 40 mg tablet,delayed 40 mg PO BID PRN Acid Reflux 03/19/22 03/18/22 Unknown History release
[2022-03-19 13:29] LABS: Hematocrit 42.3 % (42.0-52.0); Hemoglobin 13.6 g/dl (14.0-18.0); Mean Corpuscular HGB Conc 32.2 g/dl (31.0-36.0); Mean Corpuscular Hemoglobin 29.5 pg (27.0-33.0); Mean Corpuscular Volume 91.8 fL (80.0-98.0); Mean Platelet Volume 9.6 fL (9.4-12.4); Platelet Count 212 X10*3/uL (160-400); Red Blood Count 4.61 X10*6/uL (4.60-5.80); Red Cell Distribution Width 13.3 % (11.0-16.0); White Blood Count 6.4 X10*3/uL (4.8-10.8)
[2022-03-19 13:59] LABS: Anion Gap 13 (12-20); Blood Urea Nitrogen 18 mg/dL (9-16); Calcium 8.9 mg/dL (8.4-10.2); Carbon Dioxide 30 mmol/L (22-29); Chloride 101 mmol/L (96-108); Creatinine Clr Calc Pharmacy 101.3; Estimated Glomerular Filt Rate > 60; Glucose Random 91 mg/dL (60-115); Potassium 4.6 mmol/L (3.3-5.1); Sodium 139 mmol/L (135-145)
[2022-03-31] VITALS (18 sets, daily range): BP systolic 101–146; BP diastolic 65–94; PULSE 66–85; RESP 14–26; TEMP 36.1–37.3; O2SAT 90–100
--- NOTE | ~2022-03-31 | FL_ITS ---
EXAMINATION: XR FLUOROSCOPY WITH IMAGES CLINICAL INFORMATION: Fluoroscopy for J-PEG COMPARISON: None. TECHNIQUE: Fluoroscopy Supervised By: Dr. Bin Mcgill. Fluoroscopy Time: 2.0 minutes. Cumulative Dose: 40.0 mGy. DAP: 0.695 Gycm2. Images: 1. FINDINGS: There is a guidewire overlying the abdomen. There is gas seen in the stomach and small bowel. No abnormal collections of gas. FL/FL guidance in OR IMPRESSION: Fluoroscopy for surgical procedure.
--- NOTE | ~2022-03-31 | XR_ITS ---
EXAMINATION: XR CHEST CLINICAL INFORMATION: Rule out aspiration. Difficulty breathing COMPARISON: Chest x-ray 07/30/2020 TECHNIQUE: Frontal view of the chest was obtained. FINDINGS: No significant abnormality is noted involving the heart, lungs, mediastinum, bony thorax or soft tissues. XR/XR chest 1V IMPRESSION: Unremarkable chest examination.
--- NOTE | 2022-03-31 09:12 | PC.NURSE ---
PATIENT HAS ABD BRUISING FROM HIS HOME PARKINSONS INJECTION. MD MOHAN AWARE. OK TO PROCEED.
[2022-03-31] MEDS: Lactated Ringers 1,000 ML 100 ML IVCONT ×2 (09:14→17:06)
--- NOTE | 2022-03-31 10:04 | MHC.SHP ---
Pre-Procedural Eval Section A Date of Service: 03/31/22 The patient is an INPATIENT: No Changes since office visit: No Cold of Flu in the past 2 weeks, No New Medical Problems, No Changes in Medication and No Patient answered all questions The History & Physical has been completed within 30 days and I have reviewed it.: Yes Section B Chief Complaint: Parkinson's disease Allergies: Allergies Allergy/AdvReac Type Severity Reaction Status Date / Time amlodipine Allergy Unknown pt does Verified 03/11/22 14:52 not know Plan I have reviewed the history and physical and performed a pertinent physical examination on my patient. No changes have occurred unless specified. Time Spent With Patient Time: Total time managing care of this patient today ____ minutes.
--- NOTE | 2022-03-31 11:37 | P.OP_ITS ---
Operative Note Operative Note Date of Service: 03/31/22 Narrative: Preop diagnosis: Parkinson's disease Postop diagnosis: Parkinson's disease Procedure: PEG -J tube placement Surgeon: Bin Mcgill MD fish hatchery assistant: ANDERSON Tompkins The patient is a 67-year-old male with progressive Parkinson's disease, referred to me for PEG J placement for carbidopa- levodopa infusion. Understood the technique of the procedure. He was aware of the risks, benefits, and alternativ es. He was brought to the operating room. He was placed supine initially under monitored anesthesia care but he was moving quite a bit and coughing so he was placed under general anesthesia via endotracheal tube. A surgical time-out was done. The patient received preop IV antibiotics. A bite block was in position. I proceeded to insert the endoscope through the bite block into the oropharynx. The vocal cords were visualized. The esophageal slit was seen posterior to this. The esophageal slit was gently intubated. The scope was advanced all the the stomach. The stomach was insufflated. Has ablation on the epigastric area was easily seen. Indentation of the anterior stomach wall was also seen with her using a finger on the abdominal wall. This area was prepped and draped. Lidocaine 1% was used for local anesthesia. A small incision a mass made using blade 11. The large gauge needle along with the plastic sheath was inserted. This was seen with the endoscope. The needle was removed. The guidewire was placed through the plastic sheath and this was grasped with a snare. I pulled out the guard wire with the scope through the oral cavity. The gastrostomy part of the tube was then looped through this guidewire and was pulled into the oral cavity all the way to the stomach until resistance from the internal bolster was felt. I reinserted the scope this time using a a colonoscope for more length. The G- tube part was easily seen. The J tube was inserted through this G-tube and was dressed tightly with the forceps. Then proceeded to advance the scope distally into the stomach, through the pyloric opening, into the duodenum, all the way into the jejunum. Fluoroscopic confirmation was done to make sure that we were in the jejunum. Once this was confirmed, proceeded to then gently pulled back the pediatric colonoscope, giving to the snare to make sure that the G-tube was staying in position. We continued to withdraw the scope all with the stomach. We then proceeded to release the forceps from the tip of the J-tube and the forceps was out as well. We did fluoroscopy to confirm that the jejunostomy tube had state in place. Once this was done, proceeded to then completely removed the colonoscope. We reinserted the gastroscope to confirm good placement of the G-tube as well as to make sure that the jejunostomy tube was not looped in the stomach. Once this was done, the scope was removed completely and the procedure was completed. The patient tolerated procedure well. There were no immediate complications. There was minimal blood loss. The external apparatus was connected to the GJ tube for levodopa carbidopa infusion. The patient was extubated without difficulty transferred to the recovery room with stable vital signs.
[2022-03-31] MEDS: Albuterol Sulfate (0.083%) 2.5 MG/3 ML VIAL.NEB INHALE ×3 (12:21→17:44)
[2022-03-31] MEDS: fentaNYL citrate/PF 100 MCG/2 ML VIAL 25 MCG IVPUSH (12:49)
--- NOTE | 2022-03-31 15:26 | PM.EVENT ---
Event Note Date of Service: 03/31/22 Event Note: Pt underwent PEG-J tube placement for carbidopa -levodopa infusion earlier today doing well in PACU after having coughing and wheezing immediately postop pt says he wants to stay overnight - says he feels week anddoes not think his can take care of him at home looks well (baseline) otherwise will keep overnight as extended stay continue home meds stable overall abd soft, PEGJ in place [place] updated Time Spent With Patient Time: Total time managing care of this patient today ____ minutes.
--- NOTE | 2022-03-31 15:49 | PC.NURSE ---
This RN sent Sinement 25/ and Mipapex 1.5mg meds brought in by patients friend to pharmacy for verification.
[2022-03-31] MEDS: 0.9 % Sodium Chloride Flush 3 ML SYRINGE IVFLUSH (17:06)
[2022-03-31] MEDS: Carbidopa/Levodopa 25/100 TABLET PO ×2 (17:06→21:16)
--- NOTE | 2022-03-31 17:20 | HE.PHANOTE ---
Addendum entered by Patricia Kathleen [facility] 04/03/22 11:15: Patients friend came in today looking for these medications as the patient was discharged without them. factory maintenance technician went to floor and handed the medications directly to RN Jessie Quinteros. Original Note: RE PT OWN MEDS MINAL CPT WAS STOPPED BY PACU NURSE WITH MEDS FOR JOSE CARLOS BARCENAS. MEDICATIONS WERE SINEMET AND MIRAPEX BUT UPON REVIEW, MEDS WERE MIXED WITH OTHER ASSORTED PILLS IN BOTTLE. CALLED RN AND STATED AGAINST SOP TO HAND PILLS AND NEEDED TO BE IN [place] [facility] [place]. TOLD RN TO PUT A NOTE IN PROFILE AND WE WILL STORE IN SAFE. DISCUSSED WITH RN ON FLOOR. RESPONSIBILTY OF RN TO LET US KNOW WHEN PT IS BEING DISCHARGED. FRANSISCO
[2022-03-31] MEDS: Pramipexole Di-HCL 0.25 MG TABLET 1.5 MG PO ×2 (17:37→21:16)
[2022-03-31] MEDS: oxyCODONE HCl Immed Release 5 MG TABLET PO ×2 (17:37→23:37)
[2022-03-31] MEDS: clonazePAM 1 MG TABLET 2 MG PO (21:16)
[2022-04-01] VITALS (9 sets, daily range): BP systolic 110–127; BP diastolic 57–78; PULSE 69–88; RESP 16–20; TEMP 36.5–37.2; O2SAT 93–97
[2022-04-01] MEDS: Lactated Ringers 1,000 ML 100 ML IVCONT (03:06)
[2022-04-01] MEDS: Albuterol Sulfate (0.083%) 2.5 MG/3 ML VIAL.NEB INHALE ×2 (03:41→08:30)
--- NOTE | 2022-04-01 04:09 | PC.NURSE ---
pt has worsening productive cough so called for the treatment RT. after treatment, it's not getting better. left lower lob hear the fine crackles sounds. dr. Khanna notified. ordered I.S. RR 20, O2 sat 95% w/RA. pt using the IS 750mL x 5 holding fairly. I will closely monitor S/S.
--- NOTE | 2022-04-01 04:23 | PC.NURSE ---
LR was running for the 100 mL/hr. discontinue d/t fine crackles. dr Khanna ordered.
[2022-04-01] MEDS: oxyCODONE HCl Immed Release 5 MG TABLET PO ×2 (05:01→18:41)
[2022-04-01] MEDS: Carbidopa/Levodopa 25/100 TABLET PO ×4 (07:50→21:13)
[2022-04-01] MEDS: Pramipexole Di-HCL 0.25 MG TABLET 1.5 MG PO ×4 (07:51→21:14)
[2022-04-01] MEDS: 0.9 % Sodium Chloride Flush 3 ML SYRINGE IVFLUSH ×2 (07:51→16:45)
[2022-04-01] MEDS: calcium polycarbophiL TABLET 1 TAB PO (07:55)
--- NOTE | 2022-04-01 09:05 | PM.PNGS ---
Subjective Subjective Date of Service: 04/01/22 <Bailey Tompkins PA-C - Last Filed: 04/01/22 11:21> 04/02/22 <Bin Mcgill MD - Last Filed: 04/02/22 09:19> Interval history: Throat is very sore. Had a mild cough prior to surgery but it is now worse and is having trouble getting up secretions. Abdomen is sore when he coughs, otherwise denies pain. <Bailey Tompkins PA-C - Last Filed: 04/01/22 11:21> Physical Exam Vital Signs: Vital Signs: Last Vital Signs Temp 97.7 F 04/01/22 07:38 Pulse 78 04/01/22 08:35 Resp 20 04/01/22 08:35 BP 111/64 04/01/22 07:38 Pulse Ox 94 04/01/22 07:38 O2 Del Method 04/01/22 07:38 O2 Flow Rate 2 03/31/22 14:29 BMI result Body Mass Index 30.6 <Bailey Tompkins PA-C - Last Filed: 04/01/22 11:21> Const: General: no acute distress and alert <Bailey Tompkins PA-C - Last Filed: 04/01/22 11:21> Orientation/consciousness: patient oriented x3 <Bailey Tompkins PA-C - Last Filed: 04/01/22 11:21> Resp: Effort & Inspection: normal respiratory effort <Bailey Tompkins PA-C - Last Filed: 04/01/22 11:21> Auscultation: wheezes (LLL) and diminished lung sounds (b/l bases ) <Bailey Tompkins PA-C - Last Filed: 04/01/22 11:21> Cardio: Rate: regular rate <Bailey Tompkins PA-C - Last Filed: 04/01/22 11:21> GI: Other: JPEG intact and bolster snug at skin <Bailey Tompkins PA-C - Last Filed: 04/01/22 11:21> Inspection: Yes distended (mild) <Bailey Tompkins PA-C - Last Filed: 04/01/22 11:21> Palpation (GI): Soft to palpation, Tenderness to palpation present (GI) (mild surrounding JPEG), no guarding and not rigid <Bailey Tompkins PA-C - Last Filed: 04/01/22 11:21> Percussion: Yes tympanic to percussion <Bailey Tompkins PA-C - Last Filed: 04/01/22 11:21> Skin: General skin exam: no rashes or lesions noted <Bailey Tompkins PA-C - Last Filed: 04/01/22 11:21> Neuro: General: patient oriented x3 <Bailey Tompkins PA-C - Last Filed: 04/01/22 11:21> Extrem: General: Yes no pedal edema <Bailey Tompkins PA-C - Last Filed: 04/01/22 11:21> Objective Data Active Medications Albuterol Sulfate (Albuterol Sulfate (0.083%) 2.5 Mg/3 Ml Vial.Neb) 2.5 mg INHALE ONCE PRN PRN Reason: Shortness of Breath/Wheezing Last Admin: 04/01/22 08:30 Dose: 2.5 mg Documented By: CHANDLER Albuterol Sulfate (Albuterol Sulfate (0.083%) 2.5 Mg/3 Ml Vial.Neb) 2.5 mg INHALE ONCE PRN PRN Reason: Wheezing Albuterol Sulfate (Albuterol Sulfate (0.083%) 2.5 Mg/3 Ml Vial.Neb) 2.5 mg INHALE ONCE PRN PRN Reason: Wheezing Albuterol Sulfate (Albuterol Sulfate 90 Mcg 8 Gm Inhaler) 2 puff INHALE Q4H PRN PRN Reason: shortness of breath or wheezing Calcium Polycarbophil (Calcium Polycarbophil Tablet) 1 tab PO DAILY [facility] Last Admin: 04/01/22 07:55 Dose: 1 tab Documented By: EDNA Carbidopa/Levodopa (Carbidopa/Levodopa 25/100 Tablet) 1.5 - 2 tab PO QID [facility] Last Admin: 04/01/22 07:50 Dose: 2 tab Documented By: EDNA Clonazepam (Clonazepam 1 Mg Tablet) 2 mg PO BEDTIME [facility] Last Admin: 03/31/22 21:16 Dose: 2 mg Documented By: CARL Fentanyl (Fentanyl Citrate/Pf 100 Mcg/2 Ml Vial) 50 mcg IVPUSH Q5M PRN; Protocol PRN Reason: Pain, Severe (Pain Scale 7-10) Fentanyl (Fentanyl Citrate/Pf 100 Mcg/2 Ml Vial) 25 mcg IVPUSH Q5M PRN; Protocol PRN Reason: Pain, Moderate (Pain Scale 4-6 Last Admin: 03/31/22 12:49 Dose: 25 mcg Documented By: FELICE Heparin Sodium (Porcine) (Heparin Sodium,Porcine 5,000 Unit/Ml Vial) 5,000 unit SUBCUT Q8H [facility] Lactated Ringer's (Lr) 1,000 mls @ 100 mls/hr IVCONT .Q10H [facility] Last Infusion: 04/01/22 04:24 Dose: 0 mls/hr Documented By: CARL Non-Formulary Medication (Apomorphine [Apokyn]) 0.4 ml SUBCUT Q2H PRN PRN Reason: parkinsonism Non-Formulary Medication (Umeclidinium-Vilanterol [Anoro Ellipta]) 1 inhalation INHALE DAILY [facility] Omeprazole (Omeprazole 20 Mg Capsule.Dr) 20 mg PO BID PRN PRN Reason: Acid Reflux Ondansetron HCl (Ondansetron Hcl 4 Mg/2 Ml Vial) 4 mg IVPUSH Q8H PRN PRN Reason: Nausea Oxycodone HCl (Oxycodone Hcl Immed Release 5 Mg Tablet) 5 mg PO Q6H PRN PRN Reason: Pain, Severe (Pain Scale 7-10) Last Admin: 04/01/22 05:01 Dose: 5 mg Documented By: JUAN ANTONIO Pramipexole Dihydrochloride (Pramipexole Di-Hcl 0.25 Mg Tablet) 1.5 mg PO QID [facility] Last Admin: 04/01/22 07:51 Dose: 1.5 mg Documented By: EDNA Senna (Sennosides 8.6 Mg Tablet) 17.2 mg PO BEDTIME PRN PRN Reason: constipation Sodium Chloride (0.9 % Sodium Chloride Flush 3 Ml Syringe) 3 ml IVFLUSH QSHIFT [facility] Last Admin: 04/01/22 07:51 Dose: 3 ml Documented By: EDNA Tompkins PA-C - Last Filed: 04/01/22 11:21> Labs CBC & Chem 7: : 03/19/22 13:15 03/19/22 13:15 <Bailey Tompkins PA-C - Last Filed: 04/01/22 11:21> Procedures Date of Service Date of Service: 04/01/22 <Bailey Tompkins PA-C - Last Filed: 04/01/22 11:21> Progress Note: A&P Assessment and plan (1) Parkinsons disease: Status: Acute <Bailey Tompkins PA-C - Last Filed: 04/01/22 11:21> Assessment and Plan: Status post PEG J placement Complaints of cough and sore throat Continue nebulizer treatments Abdomen otherwise soft and benign Okay to DC home if he is comfortable with regards to his cough later today Seen and examined independently <Bin Mcgill MD - Last Filed: 04/02/22 09:19> (2) COPD (chronic obstructive pulmonary disease): Status: Acute <Bailey Tompkins PA-C - Last Filed: 04/01/22 11:21> Assessment and Plan: 67 year old male who underwent PEG-J tube placement for carbidopa-levodopa infusion kept overnight for observation as the patient and did not feel comfortable going home. He is doing fairly well overall today but c/o throat pain and secretions. Abd is benign, PEG-J intact. Lozenge ordered. Continue nebulizers as needed. Will reassess later today for possible discharge. <Bailey Tompkins PA-C - Last Filed: 04/01/22 11:21> Time Spent With Patient Time: Total time managing care of this patient today ____ minutes. <Bailey Tompkins PA-C - Last Filed: 04/01/22 11:21> Quality Stroke Does the patient have a stroke diagnosis?: No <Bailey Tompkins PA-C - Last Filed: 04/01/22 11:21> VTE Prior VTE?: No <SINCERE Mcgregor Last Filed: 04/01/22 11:21> VTE Risk Level:: Medical - moderate - high <Bailey Tompkins PA-C - Last Filed: 04/01/22 11:21> VTE Device Contraindication: N/A - Device Ordered <Bailey Tompkins PA-C - Last Filed: 04/01/22 11:21> VTE Drug Contraindication: N/A - Med Ordered <Baliey Tompkins PA-C - Last Filed: 04/01/22 11:21>
--- NOTE | 2022-04-01 09:49 | MHC.CM.PN ---
IMM 04/01/22, EMR REVIEWED, PT ADMITTED S/P PEG PLACEMENT FOR PARKINSON INFUSION, ANTIC PT WILL D/C TODAY W/NEW REFERRAL FOR [facility] FOR [facility] AND FS PT IS INTERESTED IN [employer] [facility]. CM MET W/PT WHO REPORTS HE LIVES W/ AND DTR, REPORTS HE DOES HIS OWN CARE HOWEVER FEELS HE COULD USE SOME ASSISTANCE AND REFERRAL TO BE PLACED TO [facility], PT REPORTS HE USES A W/C AND HAS GRAB BARS IN [place] WHICH HE USES, PT DENIES HOME SERVICES. PT VERIFIED COVID VACCINE X2, PCP JEANINE FRIEDMAN AND HCP IS JAMAR ACEVEDO [phone], COPY REQUESTED.
[2022-04-01] MEDS: Heparin Sodium,Porcine 5,000 UNIT/ML VIAL 5000 UNIT SUBCUT ×2 (10:24→18:45)
[2022-04-01] MEDS: Throat Lozenge, Medicated LOZENGE 1 LOZENGE MUCOUS MEM ×2 (10:24→13:42)
[2022-04-01] MEDS: Omeprazole 20 MG CAPSULE.DR PO (14:33)
--- NOTE | 2022-04-01 15:23 | HO.POSTANES ---
Post Anesthesia Evaluation Post Anesthesia Evaluation Vital Signs: Vital Signs Temp Pulse Resp BP Pulse Ox O2 Del Method 04/01/22 12:15 94 Room Air 04/01/22 08:35 78 20 04/01/22 10:19 94 Room Air 04/01/22 07:38 97.7 F 84 18 111/64 94 Room Air 04/01/22 03:43 78 04/01/22 04:00 98.9 F 88 16 110/60 93 Room Air Anesthesia: Monitored Mental Status: Awake Pain Control: Satisfactory Nausea/Vomiting: None Hydration: Adequate Anesthesia-Related Issues: No Anes. Related Issues
--- NOTE | 2022-04-01 16:20 | PM.EVENT ---
Event Note Date of Service: 04/01/22 Event Note: patient seen on afternoon rounds he says he feels better but still has a little bit of sore throat and cough he states that he would prefer to stay overnight again because of this continue chest chest PT incentive spirometry doing well otherwise plan to DC home tomorrow updated Time Spent With Patient Time: Total time managing care of this patient today ____ minutes.
[2022-04-01] MEDS: clonazePAM 1 MG TABLET 2 MG PO (21:13)
[2022-04-02] MEDS: 0.9 % Sodium Chloride Flush 3 ML SYRINGE IVFLUSH ×2 (00:29→08:23)
[2022-04-02] MEDS: Heparin Sodium,Porcine 5,000 UNIT/ML VIAL 5000 UNIT SUBCUT ×2 (00:29→08:23)
[2022-04-02 03:14] VITALS: BP 150/78; PULSE 84; RESP 16; TEMP 36.6; O2SAT 94
[2022-04-02] MEDS: oxyCODONE HCl Immed Release 5 MG TABLET PO (03:18)
--- NOTE | 2022-04-02 05:16 | PC.NURSE ---
pt wants to have early Parkinson medication. he states that. when he woke up in the morning, he needs it. so that I gave early.
[2022-04-02] MEDS: Omeprazole 20 MG CAPSULE.DR PO (05:20)
[2022-04-02 07:50] VITALS: BP 124/73; PULSE 64; RESP 16; TEMP 36.5; O2SAT 94
[2022-04-02] MEDS: Pramipexole Di-HCL 0.25 MG TABLET 1.5 MG PO (08:23)
[2022-04-02] MEDS: calcium polycarbophiL TABLET 1 TAB PO (08:23)
[2022-04-02] MEDS: Carbidopa/Levodopa 25/100 TABLET PO (08:23)
--- NOTE | 2022-04-02 08:49 | P.PNGS_ITS ---
Subjective Subjective Date of Service: 04/02/22 <Bailey Tompkins PA-C - Last Filed: 04/02/22 08:52> 04/02/22 <Bin Mcgill MD - Last Filed: 04/02/22 09:20> Interval history: Sore throat and cough better, secretions have decreased. Feels ready to go home today. <Bailey Tompkins PA-C - Last Filed: 04/02/22 08:52> Physical Exam Vital Signs: Vital Signs: Last Vital Signs Temp 97.7 F 04/02/22 07:50 Pulse 64 04/02/22 07:50 Resp 16 04/02/22 07:50 BP 124/73 04/02/22 07:50 Pulse Ox 94 04/02/22 07:50 O2 Del Method 04/02/22 07:50 O2 Flow Rate 2 03/31/22 14:29 BMI result Body Mass Index 30.6 <Bailey Tompkins PA-C - Last Filed: 04/02/22 08:52> Const: General: comfortable, no acute distress and alert <Bailey Tompkins PA-C - Last Filed: 04/02/22 08:52> Resp: Effort & Inspection: normal respiratory effort <Bailey Tompkins PA-C - Last Filed: 04/02/22 08:52> GI: Other: PEG J in place, bolster snug at skin <Bailey Tompkins PA-C - Last Filed: 04/02/22 08:52> Inspection: No distended <Bailey Tompkins PA-C - Last Filed: 04/02/22 08:52> Palpation (GI): Soft to palpation, Tenderness to palpation present (GI) (mild around tube), no guarding and not rigid <Bailey Tompkins PA-C - Last Filed: 04/02/22 08:52> Skin: General skin exam: no rashes or lesions noted <Bailey Tompkins PA-C - Last Filed: 04/02/22 08:52> Extrem: General: No no pedal edema <SINCERE Mcgregor Last Filed: 04/02/22 08:52> Objective Data Active Medications Albuterol Sulfate (Albuterol Sulfate (0.083%) 2.5 Mg/3 Ml Vial.Neb) 2.5 mg INHALE ONCE PRN PRN Reason: Shortness of Breath/Wheezing Last Admin: 04/01/22 08:30 Dose: 2.5 mg Documented By: CHANDLER Albuterol Sulfate (Albuterol Sulfate (0.083%) 2.5 Mg/3 Ml Vial.Neb) 2.5 mg INHALE ONCE PRN PRN Reason: Wheezing Albuterol Sulfate (Albuterol Sulfate (0.083%) 2.5 Mg/3 Ml Vial.Neb) 2.5 mg INHALE ONCE PRN PRN Reason: Wheezing Albuterol Sulfate (Albuterol Sulfate 90 Mcg 8 Gm Inhaler) 2 puff INHALE Q4H PRN PRN Reason: shortness of breath or wheezing Benzocaine (Throat Lozenge, Medicated Lozenge) 1 lozenge MUCOUS MEM Q2H PRN PRN Reason: Sore Throat Last Admin: 04/01/22 13:42 Dose: 1 lozenge Documented By: EDNA Calcium Polycarbophil (Calcium Polycarbophil Tablet) 1 tab PO DAILY [facility] Last Admin: 04/02/22 08:23 Dose: 1 tab Documented By: COTEMA Carbidopa/Levodopa (Carbidopa/Levodopa 25/100 Tablet) 1.5 - 2 tab PO QID [facility] Last Admin: 04/02/22 08:23 Dose: 2 tab Documented By: COTEMA Clonazepam (Clonazepam 1 Mg Tablet) 2 mg PO BEDTIME [facility] Last Admin: 04/01/22 21:13 Dose: 2 mg Documented By: THUY Fentanyl (Fentanyl Citrate/Pf 100 Mcg/2 Ml Vial) 50 mcg IVPUSH Q5M PRN; Protocol PRN Reason: Pain, Severe (Pain Scale 7-10) Fentanyl (Fentanyl Citrate/Pf 100 Mcg/2 Ml Vial) 25 mcg IVPUSH Q5M PRN; Protocol PRN Reason: Pain, Moderate (Pain Scale 4-6 Last Admin: 03/31/22 12:49 Dose: 25 mcg Documented By: FELICE Heparin Sodium (Porcine) (Heparin Sodium,Porcine 5,000 Unit/Ml Vial) 5,000 unit SUBCUT Q8H [facility] Last Admin: 04/02/22 08:23 Dose: 5,000 unit Documented By: BENY Non-Formulary Medication (Apomorphine [Apokyn]) 0.4 ml SUBCUT Q2H PRN PRN Reason: parkinsonism Non-Formulary Medication (Umeclidinium-Vilanterol [Anoro Ellipta]) 1 inhalation INHALE DAILY [facility] Omeprazole (Omeprazole 20 Mg Capsule.Dr) 20 mg PO BID PRN PRN Reason: Acid Reflux Last Admin: 04/02/22 05:20 Dose: 20 mg Documented By: CARL Ondansetron HCl (Ondansetron Hcl 4 Mg/2 Ml Vial) 4 mg IVPUSH Q8H PRN PRN Reason: Nausea Oxycodone HCl (Oxycodone Hcl Immed Release 5 Mg Tablet) 5 mg PO Q6H PRN PRN Reason: Pain, Severe (Pain Scale 7-10) Last Admin: 04/02/22 03:18 Dose: 5 mg Documented By: CARL Pramipexole Dihydrochloride (Pramipexole Di-Hcl 0.25 Mg Tablet) 1.5 mg PO QID [facility] Last Admin: 04/02/22 08:23 Dose: 1.5 mg Documented By: BENY Senna (Sennosides 8.6 Mg Tablet) 17.2 mg PO BEDTIME PRN PRN Reason: constipation Sodium Chloride (0.9 % Sodium Chloride Flush 3 Ml Syringe) 3 ml IVFLUSH QSHIFT [facility] Last Admin: 04/02/22 08:23 Dose: 3 ml Documented By: BENY <Bailey Tompkins PA-C - Last Filed: 04/02/22 08:52> Labs CBC & Chem 7: : 03/19/22 13:15 03/19/22 13:15 <Bailey Tompkins PA-C - Last Filed: 04/02/22 08:52> Procedures Date of Service Date of Service: 04/02/22 <Bailey Tompkins PA-C - Last Filed: 04/02/22 08:52> Progress Note: A&P Assessment and plan (1) Parkinsons disease: Status: Acute <Bailey Tompkins PA-C - Last Filed: 04/02/22 08:52> Assessment and Plan: Status post PEG J placement He feels better Less coughing Looks well Abdomen soft Peg J in place Okay to DC home today Discussed with Marion Seen and examined independently <Bin Mcgill MD - Last Filed: 04/02/22 09:20> (2) COPD (chronic obstructive pulmonary disease): Status: Acute <Bailey Tompkins PA-C - Last Filed: 04/02/22 08:52> Assessment and Plan: 67 year old male who underwent PEG-J tube placement for carbidopa- levodopa infusion kept overnight for observation as the patient and did not feel comfortable going home. He is improved today. Abd is benign, PEG-J intact. He feels ready for discharge to home. Has nurse navigator for PEGJ tube. Can f/u in office. <Bailey Tompkins PA-C - Last Filed: 04/02/22 08:52> Time Spent With Patient Time: Total time managing care of this patient today ____ minutes. <Bailey Tompkins PA-C - Last Filed: 04/02/22 08:52> Quality Stroke Does the patient have a stroke diagnosis?: No <Bailey Tompkins PA-C - Last Filed: 04/02/22 08:52> VTE Prior VTE?: No <Bailey Tompkins PA-C - Last Filed: 04/02/22 08:52> VTE Risk Level:: Medical - moderate - high <Bailey Tompkins PA-C - Last Filed: 04/02/22 08:52> VTE Device Contraindication: N/A - Device Ordered <Bailey Tompkins PA-C - Last Filed: 04/02/22 08:52> VTE Drug Contraindication: N/A - Med Ordered <Bailey Tompkins PA-C - Last Filed: 04/02/22 08:52>
--- NOTE | 2022-04-02 09:44 | MHC.CM.PN ---
Addendum entered by Mary Parsons RN 04/02/22 09:45: Pt 's friend Isaac [phone] Original Note: CM met w/PT who reports he is ready for d/c, pt reports his friend Isaac will bring him home and can pick pt up at 11am and would like pt brought down and will call nurses station when he arrives, no services ordered.
--- NOTE | 2022-04-02 11:13 | PC.NURSE ---
dc reviewedwith patient, understands instructiuon and will follow up with physician as outpatient.
== END 2022-04-02 11:14 | disposition home or self-care (01) ==
LOC: HO.SSS 11:45 → HO.S3 16:22
PROVIDERS: Nurse Practitioner; PCP Internal Medicine; Visit Provider Surgery
PROC: (CPT 43246; principal; 2022-03-31 10:20)
DX: G20 Parkinson's disease (principal); R13.19 Other dysphagia; J44.9 Chronic obstructive pulmonary disease, unspecified; J95.89 Other postprocedural complications and disorders of respiratory system, not elsewhere classified; R06.2 Wheezing; J02.9 Acute pharyngitis, unspecified; R05.9 Cough, unspecified; I35.1 Nonrheumatic aortic (valve) insufficiency; E78.5 Hyperlipidemia, unspecified; Z79.899 Other long term (current) drug therapy; Z88.8 Allergy status to other drugs, medicaments and biological substances; F17.210 Nicotine dependence, cigarettes, uncomplicated
CPT/HCPCS: 43246; 36415; 71045; 80048; 85027; 93005; 94640; J0131; J0690; J2250; J2370; J3010

== ENCOUNTER 2022-04-08 08:06 | Outpatient (REF) | payer MEDICARE, SELFPAY ==
--- NOTE | ~2022-04-08 | XR_ITS ---
EXAMINATION: XR ABDOMEN KUB CLINICAL INDICATION: Gastrostomy malfunction COMPARISON: CT abdomen of October 03, 2015 TECHNIQUE: AP view of the abdomen. FINDINGS: There is a large amount of stool present within the colon. Gastrostomy tube is seen within the left upper quadrant medially. No contrast is present on the provided image and therefore I cannot comment on positioning of the catheter. There is a wire is seen coiled over the pelvis. Patient is status post bilateral hip arthroplasty. There is degenerative change of the lumbar spine L4 through S1.. XR/XR KUB IMPRESSION: Large stool burden within the colon. Gastrostomy tube and fastener seen overlying the medial left upper quadrant. No contrast has been injected through the catheter for evaluation of positioning.
== END 2022-04-08 08:07 | disposition home or self-care (01) ==
LOC: HO.XRAY 08:06
PROVIDERS: PCP Internal Medicine; Visit Provider Nurse Practitioner Family
DX: K94.23 Gastrostomy malfunction (principal); G20 Parkinson's disease
CPT/HCPCS: 74018; 99212

== ENCOUNTER → 2022-04-15 15:18 | Outpatient (BNVA) | payer MEDICARE, SELFPAY | PROVIDERS: PCP Internal Medicine; Visit Provider Surgery | DX: G20 Parkinson's disease (principal) ==

== ENCOUNTER 2022-05-19 09:22 | Day surgery (SDC) | payer MEDICARE, SELFPAY ==
[2022-05-13 10:02] VITALS: BMI 30.9
[2022-05-19] VITALS (9 sets, daily range): BP systolic 104–131; BP diastolic 64–90; PULSE 56–63; RESP 16–18; TEMP 36.2–36.3; O2SAT 96–100
--- NOTE | ~2022-05-19 | FL_ITS ---
EXAMINATION: XR FLUOROSCOPY WITH IMAGES CLINICAL INFORMATION: Peg/J-tube insertion COMPARISON: None. TECHNIQUE: Fluoroscopy Supervised By: Dr. Rand Mcgill. Fluoroscopy Time: 45.3 seconds. Cumulative Dose: 19.42 mGy. Images: 1. FINDINGS: A single image of the abdomen was obtained obtained and reveals an endoscope in the distal esophagus. There is tube extending from the stomach distally with its tip not in [id number]. FL/FL guidance in OR IMPRESSION: Fluoroscopy was provided to referring physician for NG tube placement.
[2022-05-19] MEDS: Lactated Ringers 1,000 ML 80 ML IVCONT (10:09)
--- NOTE | 2022-05-19 10:23 | MHC.SHP ---
Pre-Procedural Eval Section A Date of Service: 05/19/22 Section B Chief Complaint: Parkinson's disease Details of Present Illness: has progressive Parkinson's symptoms, had PEG-J last 2021, but he cut this, leaving this nonfunctional; he wanted to undergo PEG J placement again Relevant Family History (Specify if Yes): No Relevant Social History: None Present Medications: see Short Stay Collaborative assessment Medical History: Significant History (Parkinsons ds, cervical radiculopathy, COPD, lumbar spondylosis) History of Previous Operations: Relevant previous surgery/procedure and date(s) (PEG J last Mar 2022) Allergies: Allergies Allergy/AdvReac Type Severity Reaction Status Date / Time amlodipine Allergy Unknown pt does Verified 04/15/22 15:27 not know Review of Systems Sugical H&P ROS: Negative: Constitution, Cardiovascular, Respiratory, Neurological, Psychiatric, Hem-Onc, Allergic/Immunologic, Gastrointestinal, Genitourinary, Musculoskeletal, Integumentary, Endocrine and Eyes/Ears/Nose/Throat Review of Systems Comment: tremors Exam Surgical H&P Exam: Normal: HEENT, Normal: Heart, Normal: Lungs, Normal: Extremities, Normal: Abdomen and Normal: Skin and Significant Findings: Neurological (tremors) Plan Diagnosis/Plan: Unchanged I have reviewed the history and physical and performed a pertinent physical examination on my patient. No changes have occurred unless specified. Time Spent With Patient Time: Total time managing care of this patient today ____ minutes.
--- NOTE | 2022-05-19 10:43 | HO.ANESPROP2 ---
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 (Acute) Tubular adenoma of colon (Acute) Trigger finger, left middle finger (Acute) Frequent falls (Acute) Parkinsons disease (Acute) PEG tube malfunction (Acute) COPD (chronic obstructive pulmonary disease) (Acute) Neck pain (Acute) Constipation (Acute) Spondylosis of lumbar spine (Acute) Complex regional pain syndrome of right upper extremity (Acute) Encounter for screening for lung cancer (Acute) Hyperlipidemia (Acute) Annual physical exam (Acute) Smoker (Acute) Parkinson disease (Acute) Pneumonia (Acute) Axillary nerve palsy (Acute) Acute bursitis of left shoulder (Acute) Past Medical History Medical History Acute bursitis of left shoulder Annual physical exam Arthritis Axillary nerve palsy Complex regional pain syndrome of right upper extremity Constipation COPD (chronic obstructive pulmonary disease) Difficulty swallowing Encounter for screening for lung cancer Family history of ischemic heart disease and other diseases of the circulatory system Hyperlipidemia Neck pain Nonrheumatic aortic (valve) insufficiency Parkinson disease Pneumonia Pure hypercholesterolemia, unspecified Smoker Spondylosis of lumbar spine Family History Family History Father CVD (cardiovascular disease) Mother CVD (cardiovascular disease) Brother No problems noted. Brother Brain cancer Sister No problems noted. Sister MRSA (methicillin resistant Staphylococcus aureus) Daughter No problems noted. Family history of problems with anesthesia: No Surgical History Surgical History (Updated 05/13/22 @ 09:50 by Lelo Alonzo RN) History of arthroscopy of shoulder History of colonoscopy History of esophagogastroduodenoscopy (EGD) History of lumbar laminectomy History of percutaneous endoscopic gastrostomy History of surgery History of total hip arthroplasty Hx of umbilical hernia repair History of Problems with Anesthesia: No Social History Social History (Updated 05/13/22 @ 10:05 by Lelo Alonzo RN) Housing: House Are you a primary rn progressive care to a significant other at home: No Do you presently have visiting nurse or other home services: No Alcohol intake: current Alcohol intake frequency: holidays/special occasions only Alcohol type: beer Patient Tobacco Use Status: Current someday Tobacco user Tobacco use type: Cigarette Cigarettes Per Day: 2 Years Smoked: 50 e-Cigarette/Vaping Use: Never Used Use of substances other than those prescribed or required for medical reasons: No Substance Use Type: Marijuana Have you been hit, kicked, punched, or otherwise hurt by someone within the past year? If so, by whom?: No Are you DNR?: No Advance Directives: Yes Advance Directives Information Provided: Yes Advance Directives on File: Yes Advance Directives Date on File: 06/03/15 Recently lost weight without trying: No Eating poorly because of decreased appetite: No Nutrition Risks: No Nutritional Risk Poor oral hygiene: No (upper & lower partials) service: No Current occupational status: employed Current occupation: Right Handed Cognitive needs: No Hearing needs: No Vision needs: No Meds Allergies Allergy/AdvReac Type Severity Reaction Status Date / Time amlodipine Allergy Unknown pt does Verified 04/15/22 15:27 not know Active Medications: Current Medications Heparin Sodium (Porcine) (Heparin Sodium,Porcine 5,000 Unit/Ml Vial) 5,000 unit SUBCUT Q8H [facility] Lactated Ringer's (Lr) 1,000 mls @ 80 mls/hr IVCONT .[id number] [facility] Last Admin: 05/19/22 10:09 Dose: 80 mls/hr Sodium Chloride (0.9 % Sodium Chloride Flush 3 Ml Syringe) 3 ml IVFLUSH QSHIFT [facility] Home Medications Medication Instructions Recorded Confirmed Last Taken Type pantoprazole 40 mg tablet,delayed 40 mg PO BID PRN Acid Reflux 03/19/22 05/13/22 Unknown History release Exam Exam Date and Time: May 19, 2022 1043 Height,Weight and Vital Signs: Height 6 ft Weight 103.419 kg Last Vital Signs Temp 97.2 F 05/19/22 10:02 Pulse 62 05/19/22 10:02 Resp 16 05/19/22 10:02 BP 110/72 05/19/22 10:02 Pulse Ox 97 05/19/22 10:02 O2 Del Method 05/19/22 10:02 Airway Mallampati Class: I TM Dist: >3cm Neck ROM: Full Partial: Upper and Lower Heart: ok Lungs: ok Assessment and Plan Assessment Anesthesia Assessment: Anesthesia Plan Discussed and Chart Reviewed Final Anesthetic Review Family History of Problems with Anesthesia: No History of Problems with Anesthesia: No NPO: Yes ASA Class: IV Final Preanesthetic Review: No Changes in Pt Med Stat, Meds/Allgs Chart Reviewed, Consent Obtained/Reviewed and Anes Risks/Benef Reviewed Patient Risk: High Procedure Risk: Intermediate Anesthetic Plan Anesthetic Plan: GA, MAC: and Agree w/ Assess. and Plan Disposition: Standard PACU
--- NOTE | 2022-05-19 11:47 | W.PM.OPN ---
Operative Note Operative Note Date of Service: 05/19/22 Narrative: Preop diagnosis: Parkinson's disease Postop diagnosis: Parkinson's disease Procedure: PEG J insertion Surgeon: Bin Mgcill MD commercial lines account assistant: ANDERSON Tompkins The patient is a 67-year-old male with Parkinson's symptoms, who was referred to me for PEG J placement for Duopa infusion into the jejunum. He had this same procedure done last March, but he had cut the PEG-J tube. He is here for re insertion. He understood the technique of this procedure as well as the risks, benefits, and alternatives. He was brought to the operating room. He was placed supine in a reclining position under general anesthesia via endotracheal tube. A surgical time-out was done. The scope was gently introduced into the oropharynx and advanced through the esophageal slit all the way through the entire length of the esophagus into the stomach. The stomach in the flatus. We were able to visualize the inner bolster. The remaining G tube was cut with scissors above the skin and a snare was attached around the bolster and was pulled out with the gastroscope out the oral orifice. I then reinserted the scope all the way back into the stomach. This was a marx using the gastroscope, we inserted a cannula sheath through the existing tract. The guidewire was inserted through the sheath. I applied the there on the guidewire and this entire wire was pulled out through the mouth again. We attached the G-tube through this wire and I pulled this back out using the wire through the wall until the inner bolster was snug. I reinserted a longer scope this time all the way to the stomach. The jejunostomy tube was inserted through this G-tube and I applied the forceps at the tip. I advanced the scope with the G-tube in place, through the pyloric orifice, passed the C-loop of the duodenum into the jejunum. Confirmation of the location of the tip as being in the jejunum was done using fluoroscopy. I then proceeded to withdraw the scope as we threaded the snare to keep the tip of the J-tube in the jejunum. Once the scope was in the stomach, I proceeded to then do an other fluoroscopic study sure that the tip of the was still in the jejunum. Once this was confirmed, I pulled out the snare and the scope completely. The rest of the peg J attachments were then connected to the PEG J itself. The procedure was then completed The patient tolerated procedure well. There were no immediate complications. There was minimal blood loss. The patient was extubated without difficulty and transferred to the recovery room with stable vital signs.
--- NOTE | 2022-05-19 13:28 | PM.EVENT ---
Event Note Date of Service: 05/19/22 Event Note: seen multiple times postop he has been doing very well no respiratory distress no new coughing stable VS' looks well denies pain abd soft ok to dc home dw family by phone Time Spent With Patient Time: Total time managing care of this patient today ____ minutes.
== END 2022-05-19 14:05 | disposition home or self-care (01) ==
PROVIDERS: PCP Internal Medicine; Visit Provider Surgery
PROC: (CPT 43246; principal; 2022-05-19 11:50)
DX: G20 Parkinson's disease (principal); R13.10 Dysphagia, unspecified; J44.9 Chronic obstructive pulmonary disease, unspecified; E78.00 Pure hypercholesterolemia, unspecified; F17.210 Nicotine dependence, cigarettes, uncomplicated; Z88.8 Allergy status to other drugs, medicaments and biological substances
CPT/HCPCS: 43246; J0690; J2405; J3010

== ENCOUNTER 2022-05-28 11:46 | Outpatient (REF) | payer MEDICARE, SELFPAY ==
--- NOTE | ~2022-05-28 | XR_ITS ---
EXAMINATION: XR PELVIS CLINICAL INFORMATION: Hip pain COMPARISON: 10/10/2018 TECHNIQUE: AP view of the pelvis. FINDINGS: The bilateral total hip arthroplasties are in stable position and alignment without evidence of loosening or fracture. No significant change. XR/XR pelvis 1-2V IMPRESSION: Unchanged appearance of the bilateral total hip arthroplasties.
== END 2022-05-28 11:47 | disposition home or self-care (01) ==
LOC: HO.HOSX 11:46
PROVIDERS: Visit Provider Orthopaedic Surgery
DX: M24.551 Contracture, right hip (principal); M24.552 Contracture, left hip; G20 Parkinson's disease; Z96.643 Presence of artificial hip joint, bilateral
CPT/HCPCS: 72170; 99212

== ENCOUNTER → 2022-06-02 07:26 | Outpatient (BNVA) | payer MEDICARE, SELFPAY | PROVIDERS: PCP Internal Medicine; Visit Provider Nurse Practitioner Family | DX: G20 Parkinson's disease (principal); K11.7 Disturbances of salivary secretion | CPT/HCPCS: 99212 ==

== ENCOUNTER → 2022-06-10 15:41 | Outpatient (BNVA) | payer MEDICARE, SELFPAY | PROVIDERS: PCP Internal Medicine; Visit Provider Nurse Practitioner Family | DX: G20 Parkinson's disease (principal); R26.2 Difficulty in walking, not elsewhere classified; K11.7 Disturbances of salivary secretion; Z93.1 Gastrostomy status | CPT/HCPCS: 99212 ==

== ENCOUNTER → 2022-06-22 14:09 | Outpatient (BNVA) | payer MEDICARE, SELFPAY | PROVIDERS: PCP Internal Medicine; Referring Provider Internal Medicine; Visit Provider Surgery | DX: G20 Parkinson's disease (principal); T85.528A Displacement of other gastrointestinal prosthetic devices, implants and grafts, initial encounter; X50.1XXA Overexertion from prolonged static or awkward postures, initial encounter; Y93.E1 Activity, personal bathing and showering; Y92.002 Bathroom of unspecified non-institutional (private) residence as the place of occurrence of the external cause; Y99.8 Other external cause status | CPT/HCPCS: 99212 ==

== ENCOUNTER 2022-07-07 08:36 | Outpatient (REF) | payer MEDICARE, SELFPAY ==
[2022-07-07 12:07] LABS: Hematocrit 41.9 % (42.0-52.0); Hemoglobin 13.2 g/dl (14.0-18.0); Mean Corpuscular HGB Conc 31.5 g/dl (31.0-36.0); Mean Corpuscular Hemoglobin 28.6 pg (27.0-33.0); Mean Corpuscular Volume 90.7 fL (80.0-98.0); Mean Platelet Volume 10.4 fL (9.4-12.4); Platelet Count 206 X10*3/uL (160-400); Red Blood Count 4.62 X10*6/uL (4.60-5.80); Red Cell Distribution Width 13.6 % (11.0-16.0); White Blood Count 6.3 X10*3/uL (4.8-10.8)
[2022-07-07 13:07] LABS: Alanine Aminotransferase < 6 U/L (0-40); Albumin Level 3.8 g/dL (3.5-5.0); Alkaline Phosphatase 121 U/L (39-117); Anion Gap 9 (12-20); Aspartate Amino Transferase 15 U/L (5-37); Bilirubin Total 0.5 mg/dL (0.0-1.0); Blood Urea Nitrogen 21 mg/dL (9-16); Calcium 8.8 mg/dL (8.4-10.2); Carbon Dioxide 31 mmol/L (22-29); Chloride 104 mmol/L (96-108); Cholesterol 165 mg/dL; Estimated Glomerular Filt Rate > 60; Glucose Fasting 92 mg/dL (60-99); HDL Cholesterol 30 mg/dL; LDL Cholesterol Calculated 114 mg/dl; Potassium 5.2 mmol/L (3.3-5.1); Sodium 139 mmol/L (135-145); Total Protein 6.1 g/dL (6.5-8.0); Triglycerides 109 mg/dL
== END 2022-07-07 08:37 | disposition home or self-care (01) ==
LOC: HO.HMGCLDS 08:36
PROVIDERS: Visit Provider Internal Medicine
DX: Z00.00 Encounter for general adult medical examination without abnormal findings (principal); E78.5 Hyperlipidemia, unspecified
CPT/HCPCS: 36415; 80053; 80061; 85027

== ENCOUNTER 2022-07-09 14:49 | Outpatient (REF) | payer MEDICARE, SELFPAY ==
--- NOTE | ~2022-07-09 | XR_ITS ---
EXAMINATION: XR CHEST CLINICAL INFORMATION: Edema. COMPARISON: 03/31/2022 chest radiograph. TECHNIQUE: 2 views of the chest were obtained. FINDINGS: There is minimal blunting of the left costophrenic angle with mild superjacent linear markings. The left upper lung field and right lung are clear. The heart and mediastinal structures are unremarkable. XR/XR chest 2V IMPRESSION: Minimal blunting of the left costophrenic angle may be projectional representing pleural scarring/atelectasis. A very small left pleural effusion cannot be excluded.
[2022-07-09 17:15] LABS: B Type Natriuretic Peptide 44 pg/mL (<100)
[2022-07-09 17:43] LABS: TSH reflex Free T4 1.73 uIU/mL (0.32-4.0)
== END 2022-07-09 14:50 | disposition home or self-care (01) ==
LOC: HO.HMGCX 14:49
PROVIDERS: PCP Internal Medicine; Visit Provider Internal Medicine
DX: R60.9 Edema, unspecified (principal)
CPT/HCPCS: 36415; 71046; 83880; 84443

== ENCOUNTER → 2022-07-16 12:57 | Outpatient (REF) | payer MEDICARE, SELFPAY ==
--- NOTE | 2022-07-16 13:02 | CA_ITS ---
Transthoracic Echocardiogram Patient (Last, First, Middle): Ko Crouch A Gender: Male Date of : 1955 Age: 67 Procedure Date: 07/16/2022 Procedure Type: Transthoracic Echocardiogram Location: OP Height: 182.88 cm Weight: 106.6 kg BSA: 2.28 m2 Heart Rate: 60 bpm BP: 120 / 76 mmHg [employer] Teacher: MELISSA Referring MD: Elisabet Ochoa MD Special Services Coordinator: Byron Gamez MD Symptoms: R60.9 - Edema, unspecified Study Quality: Fair ECG Rhythm: Sinus Conclusions: - 1. Normal LV systolic function with impaired relaxation filling pattern 2. Normal cardiac valvular Dopplers 3. Mildly dilated ascending aorta at 4.3 cm 4. No gross pericardial effusion Findings Procedure Information The quality of the study was technically difficult. The study quality is limited by patients body habitus. Left Ventricle Normal left ventricular size, thickness, and systolic function. The visually estimated ejection fraction is between 55-60%. Spectral Doppler is indicative of an impaired relaxation filling pattern. E/E prime ratio is between 8 and 15 consistent with indeterminate filling pressures. Peak GLS is -17.5%, within acceptable limits. Right Ventricle Normal right ventricular cavity size and systolic function. Atria The left atrium is likely dilated. Interatrial shunt cannot be excluded. The right atrium is normal in size. Aortic Valve The aortic valve structure and function is likely normal. There is no aortic valve stenosis. There is no aortic valve regurgitation. Mitral Valve There is mild anterior and posterior mitral leaflet thickening. There is trace mitral valve regurgitation. There is no mitral valve stenosis. Pulmonic Valve The pulmonic valve was not well visualized. Tricuspid Valve Likely normal tricuspid valve structure and function. Tricuspid regurgitation envelope is inadequate for calculation of right ventricular systolic pressure. Great Vessels The pulmonary artery was not well visualized. There is mild dilatation of the ascending aorta measuring 4.30 cm. Venous The inferior vena cava was not well visualized. Pericardium/Pleural There is no evidence of pericardial effusion. Measurements 2D Linear Measurements IVSd: 1.18 0.6-0.9/0.6-1.0 cm LVIDd: 5.34 3.9-5.3/4.2-5.9 cm LVIDd Index: 2.34 2.4-3.2/2.2-3.1 cm/m2 LVIDs: 3.70 2.0-3.6 cm LVPWd: 0.91 0.7-1.1 cm LA Diam: 3.90 2.7-3.8/3.0-4.0 cm LAIDs Index: 1.71 1.5-2.3 cm/m2 LV Mass: 267.53 67-162/88-224 g LV Mass Index: 117.34 43-95/49-115 g/m2 LVOT Diam: 2.40 3.0+(-)1.3 cm 2D Systolic Function EF 4C: 53.50 >55% Mitral Valve MV Pk E: 0.47 MV PK A: 0.55 MV Decel Time: 316.00 E/A: 0.90 E'Lateral: 6.64 E'Medial: 7.29 E/E' Med: 6.50 E/E' Lat: 7.10 PHT: 92.00 MVA PHT: 2.39 Decel [place]: 1.49 Aortic Valve AoV Pk Sebastian: 1.25 AoV Pk Grad: 6.00 PATO: 4.25 LVOT LVOT Pk Sebastian: 1.10 LVOT Mn Sebastian: 0.73 LVOT VTI: 0.23 LVOT Pk Grad: 5.00 LVOT Mn Grad: 3.00 LVOT Diam: 2.40 LVOT Area: 4.52 Diastolic Function MV Pk E: 0.47 MV Pk A: 0.55 E/A: 0.90 E'Medial: 7.29 E/E' Med: 6.50 E' Laterial: 6.64 E/E' Lat: 7.10 Right Ventricle TAPSE (mm): 17.30 TVS' Sebastian: 11.40 Great Vessels Aorta Sinus of Valsalva: 4.20 2.0-3.5 cm Ao Asc: 4.30 2.1-3.4 cm Pulmonary Valve PV Pk Sebastian: 0.79 Peak PV Grad: 2.00 Updated in Other Vendor System with Status of Final Byron Gamez MD electronically signed on 07/16/2022 3:53:02 PM with status of Final
== END ==
LOC: HO.CARD 12:57
PROVIDERS: PCP Internal Medicine; Visit Provider Internal Medicine
DX: R60.9 Edema, unspecified (principal)
CPT/HCPCS: 93306; 93356

== ENCOUNTER 2022-08-04 10:30 | Day surgery (SDC) | payer MEDICARE, SELFPAY ==
--- NOTE | 2022-07-30 09:30 | HO.ANESPROP2 ---
Documented by User: Cristy Roberto NP 07/30/22 09:36 HPI - Anesthesia Eval Consult details Narrative: 67yo M for Peg-J Insertion Previously inserted 05/2022 with GA-ETT 7.5 PMFSH Active Problems Active Problems: All Active Problems (Updated 07/09/22 @ 14:39 by Elisabet Ochoa MD) Edema (Acute) Difficulty walking (Acute) S/P percutaneous endoscopic gastrostomy (PEG) tube placement (Acute) Contracture, unspecified hip (Acute) History of bilateral hip arthroplasty (Acute) Chest pain (Acute) Trigger finger, right middle finger (Acute) Osteoarthritis of left hand (Acute) Cervical radiculopathy (Acute) Rotator cuff arthropathy of right shoulder (Acute) Preoperative cardiovascular examination (Acute) SOB (shortness of breath) (Acute) Falls (Acute) Sialorrhea (Acute) 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 (Acute) Tubular adenoma of colon (Acute) Trigger finger, left middle finger (Acute) Frequent falls (Acute) Parkinsons disease (Acute) PEG tube malfunction (Acute) COPD (chronic obstructive pulmonary disease) (Acute) Neck pain (Acute) Constipation (Acute) Spondylosis of lumbar spine (Acute) Complex regional pain syndrome of right upper extremity (Acute) Encounter for screening for lung cancer (Acute) Hyperlipidemia (Acute) Annual physical exam (Acute) Smoker (Acute) Parkinson disease (Acute) Pneumonia (Acute) Axillary nerve palsy (Acute) Acute bursitis of left shoulder (Acute) Past Medical History Medical History Acute bursitis of left shoulder Annual physical exam Arthritis Axillary nerve palsy Complex regional pain syndrome of right upper extremity Constipation COPD (chronic obstructive pulmonary disease) Difficulty swallowing Encounter for screening for lung cancer Family history of ischemic heart disease and other diseases of the circulatory system Hyperlipidemia Neck pain Nonrheumatic aortic (valve) insufficiency Parkinson disease Pneumonia Pure hypercholesterolemia, unspecified Smoker Spondylosis of lumbar spine Family History Family History Father CVD (cardiovascular disease) Mother CVD (cardiovascular disease) Brother No problems noted. Brother Brain cancer Sister No problems noted. Sister MRSA (methicillin resistant Staphylococcus aureus) Daughter No problems noted. Family history of problems with anesthesia: No Surgical History Surgical History History of arthroscopy of shoulder History of colonoscopy History of esophagogastroduodenoscopy (EGD) History of lumbar laminectomy History of percutaneous endoscopic gastrostomy History of surgery History of total hip arthroplasty Hx of umbilical hernia repair History of Problems with Anesthesia: No Social History Social History Housing: House Are you a primary child day care provider to a significant other at home: No Do you presently have visiting nurse or other home services: No Alcohol intake: current Alcohol intake frequency: holidays/special occasions only Alcohol type: beer Patient Tobacco Use Status: Current everyday Tobacco user Tobacco use type: Cigarette Cigarettes Per Day: 2 Years Smoked: 50 e-Cigarette/Vaping Use: Never Used Use of substances other than those prescribed or required for medical reasons: No Substance Use Type: Marijuana Are you DNR?: No Advance Directives: Yes Advance Directives on File: Yes Advance Directives Date on File: 06/03/15 Recently lost weight without trying: No Nutrition Risks: No Nutritional Risk service: No Current occupational status: employed Current occupation: Right Handed Cognitive needs: No Hearing needs: No Vision needs: No Meds Allergies Allergy/AdvReac Type Severity Reaction Status Date / Time amlodipine Allergy Unknown pt does Verified 07/24/22 11:16 not know Home Medications Medication Instructions Recorded Confirmed Last Taken Type pantoprazole 40 mg tablet,delayed 40 mg PO BID PRN Acid Reflux 03/19/22 07/24/22 Unknown History release Exam Exam Date and Time: July 30, 2022 0930 Pertinent Lab Results Pertinent Lab Results: Laboratory Tests 07/07/22 07/07/22 08:47 08:47 WBC 6.3 Hgb 13.2 L Hct 41.9 L Plt Count 206 Sodium 139 Potassium 5.2 H Chloride 104 Carbon Dioxide 31 H BUN 21 H Creatinine 0.93 Narrative Narrative: ECHO 07/2022 Conclusions: - 1. Normal LV systolic function with impaired relaxation filling pattern? 2. Normal cardiac valvular Dopplers? 3. Mildly dilated ascending aorta at 4.3 cm? 4. No gross pericardial effusion ?? EKG 03/2022 Vent. Rate : 057 BPM ? ? Atrial Rate : 057 BPM ?? P-R Int : 178 ms? QRS Dur : 098 ms ? ? QT Int : 436 ms ? ? ? P-R-T Axes : 079 044 053 degrees ?? QTc Int : 424 ms ? Sinus bradycardia with sinus arrhythmia Otherwise normal ECG When compared with ECG of 18-JUL-2020 11:59, No significant change was found Assessment and Plan Assessment Anesthesia Assessment: Chart Reviewed Final Anesthetic Review Family History of Problems with Anesthesia: No History of Problems with Anesthesia: No Documented by User: German Mckeon MD 08/04/22 13:05 [facility] Past Medical History Medical History Acute bursitis of left shoulder Annual physical exam Arthritis Axillary nerve palsy Complex regional pain syndrome of right upper extremity Constipation COPD (chronic obstructive pulmonary disease) Difficulty swallowing Encounter for screening for lung cancer Family history of ischemic heart disease and other diseases of the circulatory system Hyperlipidemia Neck pain Nonrheumatic aortic (valve) insufficiency Parkinson disease Pneumonia Pure hypercholesterolemia, unspecified Smoker Spondylosis of lumbar spine Family History Family History Father CVD (cardiovascular disease) Mother CVD (cardiovascular disease) Brother No problems noted. Brother Brain cancer Sister No problems noted. Sister MRSA (methicillin resistant Staphylococcus aureus) Daughter No problems noted. Surgical History Surgical History History of arthroscopy of shoulder History of colonoscopy History of esophagogastroduodenoscopy (EGD) History of lumbar laminectomy History of percutaneous endoscopic gastrostomy History of surgery History of total hip arthroplasty Hx of umbilical hernia repair Social History Social History Housing: House Are you a primary child day care provider to a significant other at home: No Do you presently have visiting nurse or other home services: No Alcohol intake: current Alcohol intake frequency: holidays/special occasions only Alcohol type: beer Patient Tobacco Use Status: Current everyday Tobacco user Tobacco use type: Cigarette Cigarettes Per Day: 2 Years Smoked: 50 e-Cigarette/Vaping Use: Never Used Use of substances other than those prescribed or required for medical reasons: No Substance Use Type: Marijuana Are you DNR?: No Advance Directives: Yes Advance Directives on File: Yes Advance Directives Date on File: 06/03/15 Recently lost weight without trying: No Nutrition Risks: No Nutritional Risk service: No Current occupational status: employed Current occupation: Right Handed Cognitive needs: No Hearing needs: No Vision needs: No Meds Allergies Allergy/AdvReac Type Severity Reaction Status Date / Time amlodipine Allergy Unknown pt does Verified 07/24/22 11:16 not know Home Medications Medication Instructions Recorded Confirmed Last Taken Type pantoprazole 40 mg tablet,delayed 40 mg PO BID PRN Acid Reflux 03/19/22 07/24/22 Unknown History release Exam Airway Mallampati Class: I TM Dist: >3cm Neck ROM: Full Loose/Missing/Broken Teeth: Yes, Upper and Lower Heart: ok Lungs: ok Assessment and Plan Assessment Anesthesia Assessment: Anesthesia Plan Discussed Final Anesthetic Review NPO: Yes ASA Class: III Final Preanesthetic Review: No Changes in Pt Med Stat, Meds/Allgs Chart Reviewed, Consent Obtained/Reviewed and Anes Risks/Benef Reviewed Patient Risk: High Procedure Risk: Intermediate Anesthetic Plan Anesthetic Plan: GA Disposition: Standard PACU
--- NOTE | ~2022-08-04 | FL_ITS ---
EXAMINATION: XR FLUOROSCOPY WITH IMAGES CLINICAL INFORMATION: PEG-J tube placement COMPARISON: KUB 03/31/2022. TECHNIQUE: Fluoroscopy Supervised By: Dr. Bin Mcgill. Fluoroscopy Time: 7 seconds. Cumulative Dose: 3.15 mGy. Images: 2. FINDINGS: There is a PEG/J tube overlying the mid body stomach. Some trace intraluminal contrast is present. FL/FL guidance in OR IMPRESSION: Fluoroscopy for surgical procedure.
[2022-08-04 10:39] VITALS: BMI 30.2
[2022-08-04 10:56] VITALS: BP 98/55; PULSE 61; RESP 16; TEMP 36.3; O2SAT 95
[2022-08-04] MEDS: Lactated Ringers 1,000 ML 100 ML IVCONT (11:04)
--- NOTE | 2022-08-04 12:16 | MHC.SHP ---
Pre-Procedural Eval Section A Date of Service: 08/04/22 Section B Chief Complaint: Parkinson's disease Details of Present Illness: has worsening Parkinson's disease, supposedly on Duopa infusion via a PEG J tube; he pulled out his PEG J-tube by accident and wants this replaced. Relevant Family History (Specify if Yes): No Relevant Social History: Tobacco Use Present Medications: see Short Stay Collaborative assessment Medical History: Significant History ( Parkinson's disease, COPD hyperlipidemia) Allergies: Allergies Allergy/AdvReac Type Severity Reaction Status Date / Time amlodipine Allergy Unknown pt does Verified 07/24/22 11:16 not know Review of Systems Sugical H&P ROS: Negative: Constitution, Cardiovascular, Respiratory, Neurological, Psychiatric, Hem-Onc, Allergic/Immunologic, Gastrointestinal, Genitourinary, Musculoskeletal, Integumentary, Endocrine and Eyes/Ears/Nose/Throat Review of Systems Comment: tremors, balance Exam Surgical H&P Exam: Normal: HEENT, Normal: Heart, Normal: Lungs, Normal: Extremities, Normal: Abdomen, Normal: Skin and Normal: Neurological Exam Comment: poor balance with ambulation Plan Diagnosis/Plan: Unchanged I have reviewed the history and physical and performed a pertinent physical examination on my patient. No changes have occurred unless specified. Time Spent With Patient Time: Total time managing care of this patient today ____ minutes.
--- NOTE | 2022-08-04 12:23 | PC.NURSE ---
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 no loc or hitting head.
--- NOTE | 2022-08-04 13:59 | W.PM.OPN ---
Operative Note Operative Note Date of Service: 08/04/22 Narrative: Preop diagnosis: Parkinson's disease Postop diagnosis: Parkinson's disease Procedure: Peg J placement , with intraop fluoroscopy Surgeon: Bin Mcgill MD [employer] assistant principal: ANDERSON Tompkins The patient is a 67-year-old male with worsening Parkinson's disease, who had pulled out the jejunostomy part of his PEG J. He has here therefore for re- insertion of PEG J tube. he understood the technique of the planned procedure. He was aware of the risks, benefits, and alternatives. His family was involved with the question. He was brought the operating room. He was placed supine under general anesthesia via endotracheal tube. a surgical time-out had been done. A bite block was in position. I inserted the endoscope through the bite block into the oropharynx. The vocal cords were visualized. The esophageal slit was seen posterior to this. This ago slit was intubated. The scope was gently advanced to the entire length of the esophagus to stomach. The stomach was insufflated. I was able to visualize the internal bolster. The rest of the G-part of the peg J apparatus was intact so we decided that we would used the same G-tube and reinsert the jejunostomy through the same G-tube. We trimmed the of the G-tube. We attached the ports. We threaded the jejunostomy tube through the port still this was seen in the lumen. This was grasped with the biopsy forceps. We gently advanced the scope with insufflation the pyloric orifice, pulling the tip of the jejunostomy tube with the scope using the biopsy forceps. We advanced the scope gently with insufflation all the way to the jejunum past the C-loop of the duodenum. We then used the C-arm to image the where the tip of the did not some with tube was. We could see that this was passed the midline so confirmed the good location of the tip of the jejunostomy. The endoscope was gently withdrawn to make that there was no significant coiling of the tube in the stomach. we visualized the internal bolster and this appeared to be snug on the anterior wall of the stomach. The endoscope was completely pulled out. We took more images using the C-arm and this confirmed that the tip of the jejunostomy tube was still in place in the jejunum. The ports were reattached to the tip of the peg J tube. The procedure was then completed . The patient tolerated procedure well. There were no immediate complications. there was no significant blood loss. The patient was extubated without difficulty and transferred to the recovery room with stable vital signs.
[2022-08-04 14:03] VITALS: BP 100/58; PULSE 57; RESP 12; TEMP 36.2; O2SAT 96
[2022-08-04 14:08] VITALS: BP 87/40; PULSE 63; RESP 15; O2SAT 97
[2022-08-04 14:13] VITALS: BP 101/74; PULSE 58; RESP 15; O2SAT 97
[2022-08-04 14:18] VITALS: BP 100/56; PULSE 66; RESP 16; O2SAT 96
[2022-08-04 14:33] VITALS: BP 107/65; PULSE 57; RESP 16; TEMP 36.4; O2SAT 99
== END 2022-08-04 15:31 | disposition home or self-care (01) ==
PROVIDERS: PCP Internal Medicine; Visit Provider Surgery
PROC: (CPT 43246; principal; 2022-08-04 13:10)
DX: G20 Parkinson's disease (principal); R26.2 Difficulty in walking, not elsewhere classified; Z91.81 History of falling; R60.9 Edema, unspecified; K11.7 Disturbances of salivary secretion; K22.70 Barrett's esophagus without dysplasia; E78.5 Hyperlipidemia, unspecified; G58.8 Other specified mononeuropathies; J44.9 Chronic obstructive pulmonary disease, unspecified; G90.511 Complex regional pain syndrome I of right upper limb; Z79.899 Other long term (current) drug therapy; Z88.8 Allergy status to other drugs, medicaments and biological substances; F12.90 Cannabis use, unspecified, uncomplicated; F17.210 Nicotine dependence, cigarettes, uncomplicated
CPT/HCPCS: 43246; J0690; J3010

== ENCOUNTER → 2022-08-13 09:19 | Outpatient (BNVA) | payer MEDICARE, SELFPAY | PROVIDERS: PCP Internal Medicine; Visit Provider Nurse Practitioner Family | DX: G20 Parkinson's disease (principal); R26.2 Difficulty in walking, not elsewhere classified; Z93.1 Gastrostomy status; Z79.899 Other long term (current) drug therapy | CPT/HCPCS: 99212 ==

== ENCOUNTER 2022-10-19 15:34 | Outpatient (AMB) | payer MEDICARE, SELFPAY ==
[2022-10-19 15:35] VITALS: BP 92/58; PULSE 69; BMI 30.1
--- NOTE | 2022-10-19 15:35 | A.OFFVIS_ITS ---
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 Patient was also encouraged to increase fluids. Patient does have parking sent and has been moving around. Patient was encouraged to be safe when doing activity. Patient will inquire about wheeled walker to help him get around. GERD (gastroesophageal reflux disease) Continue current treatment with pantoprazole. Patient was encouraged to avoid dietary triggers and late night snacking. Staying upright for minimum 3 hours after meals. Patient was also encouraged to come to the office with someone next time for safety. Patient states that today he was driven by his friend as he last license due to his illness and not being stable on his feet. Patient is agreeable to this plan and verbalizes understanding of instructions. He was given the opportunity to ask questions and all questions answered. ? Thank you for allowing me to participate in his care Plan Medications New sennosides (senna) 17.2 mg (2 x 8.6 mg) PO BEDTIME PRN 180 tabs 2RF constipation docusate sodium 200 mg (2 x 100 mg) PO BEDTIME 180 caps 3RF K59.00 TODAY'S VISIT: Patient is here today for requested visit for complaints of epigastric discomfort and acid reflux. Patient has history of advanced Parkinson's weight inability to walk safely without any support. Patient was dropped off for the appointment by his friend and as he was walking into the building patient felt unsteady and fell. Per patient fall was unwitnessed. He landed on his right elbow sustaining mild abrasion. Patient did not hit head. Patient was advised to go to emergency department before seen in the office, however his condition is chronic and getting progressively worse. Patient was placed in a wheelchair and brought to the office with the plan of calling his ride and assisting him down to the car after visit. Patient reports that he is getting Duopa infusions and he feels like his pump is not working. Patient has the pump in his pocket which seems to be loosening the tubing that goes in to PEG tube. Patient has vest that should be wearing this pump in a vest instead of wearing it in the pocket when can be dislodged. Patient stopped taking pantoprazole and his symptoms of acid reflux have returned. Patient denies any nausea or vomiting. Reports dyspepsia without dysphagia or odynophagia. Patient reports that he is moving his bowels better now that he is taking Senokot. Patient denies melena, hematochezia, unintentional weight loss or ribbon like stools. [facility] Medical History Acute bursitis of left shoulder Annual physical exam Arthritis Axillary nerve palsy Complex regional pain syndrome of right upper extremity Constipation COPD (chronic obstructive pulmonary disease) Difficulty swallowing Encounter for screening for lung cancer Family history of ischemic heart disease and other diseases of the circulatory system Hyperlipidemia Neck pain Nonrheumatic aortic (valve) insufficiency Parkinson disease Pneumonia Pure hypercholesterolemia, unspecified Smoker Spondylosis of lumbar spine Surgical History History of arthroscopy of shoulder History of colonoscopy History of esophagogastroduodenoscopy (EGD) History of lumbar laminectomy History of percutaneous endoscopic gastrostomy History of surgery History of total hip arthroplasty Hx of umbilical hernia repair Family History Father CVD (cardiovascular disease) Mother CVD (cardiovascular disease) Brother No problems noted. Brother Brain cancer Sister No problems noted. Sister MRSA (methicillin resistant Staphylococcus aureus) Daughter No problems noted. Social History Housing: House Are you a primary home care chaplain to a significant other at home: No Do you presently have visiting nurse or other home services: No Alcohol intake: current Alcohol intake frequency: holidays/special occasions only Alcohol type: beer Patient Tobacco Use Status: Current everyday Tobacco user Tobacco use type: Cigarette Cigarettes Per Day: 2 Years Smoked: 50 e-Cigarette/Vaping Use: Never Used Substance Use Type: Marijuana Advance Directives Date on File: 06/03/15 service: No Current occupational status: employed Current occupation: Right Handed Cognitive needs: No Hearing needs: No Vision needs: No Review of Systems Const Denies weight gain and Denies weight loss ENT Reports no additional complaints, Denies dysphagia and Denies odynophagia Card Reports no additional complaints Resp Reports no additional complaints GI Denies abdominal pain, Denies belching, Denies melena, Reports bloating, Reports constipation, Denies dysphagia, Denies excessive flatus, Denies dyspepsia, Reports heartburn, Denies diarrhea, Denies loose stools, Denies nausea, Denies odynophagia and Denies vomiting Reports no additional complaints Musc Reports no additional complaints Neuro Reports no additional complaints Psych Reports no additional complaints Endo Reports no additional complaints Physical Exam Vital Signs: Last Vital Signs Pulse 69 10/19/22 15:35 BP 92/58 L 10/19/22 15:35 BMI result Body Mass Index 30.1 Const General: cooperative and no acute distress Nutritional Appearance: obese Orientation/consciousness: patient oriented x3 HEENT Head: Yes normal to inspection, Yes normocephalic and Yes atraumatic Face and sinus: Yes normal facial exam Mouth: Normal oral and palatal mucosa present Throat: Yes posterior oropharynx normal, Yes tonsils normal and Yes uvula midline Eyes General: appearance normal, both eyes and all related structures Neck Neck: Yes normal visual inspection, Yes full ROM and Yes trachea midline Thyroid: Thyroid normal Resp Effort & Inspection: normal respiratory effort, able to speak in complete sentences, no tracheal deviation and symmetric chest movement Auscultation: clear to auscultation bilaterally Cardio Rate: regular rate Heart sounds: S1 normal heart sound present and S2 normal heart sound present GI Inspection: Yes normal to inspection, No distended and Yes obesity Palpation (GI): Soft to palpation, not firm, nontender and No hepatosplenomegaly present Auscultation: normal bowel sounds General: Yes no CVA tenderness Back/Spine/Pelvis Back: no CVA tenderness Skin General skin exam: elasticity normal, turgor normal and dry skin Trauma: abrasion (Right elbow) Neuro General: patient oriented x3 Psych Appearance: grossly normal Mental Status: mental status grossly normal Speech and movement: Normal speech and movement present Assessment & Plan Assessment & Plan (1) Constipation: Code(s): K59.00 - Constipation, unspecified Qualifiers: Constipation type: chronic idiopathic constipation Qualified Code(s): K59.04 - Chronic idiopathic constipation Plan: Continue Senokot daily. Patient can also take MiraLax. Patient is activity has been declining due to advanced Parkinson's disease. Patient has increased edema and is on Lasix (2) GERD (gastroesophageal reflux disease): Code(s): K21.9 - Gastro-esophageal reflux disease without esophagitis Qualifiers: Esophagitis presence: esophagitis presence not specified Qualified Code(s): K21.9 - Gastro-esophageal reflux disease without esophagitis Plan: Start pantoprazole 40 mg half an hour before breakfast. Patient was encouraged to avoid dietary triggers in late night snacking. Staying upright for minimal 3 hours after meals discussed with patient. (3) PEG tube malfunction: Code(s): K94.23 - Gastrostomy malfunction Plan: Spoke with Dr. Mcgill, no sign and symptoms dislodging of the PEG tube. Patient was instructed to wear his pump in the vest or belt/abdominal girdle instead of in his pocket where he can pull it. Pump is running currently normal functions noted. Due to patient's advanced Parkinson's and inability to walk safely on his own without any support like walker or cane patient should be assisted by someone who can help him walk or wheeled him into the appointment. Safety concern discussed with patient. Call was placed to patient's right. district administrative assistant we will patient downstairs and patient was placed in a car safely. Patient would benefit from nurse navigator services. I will see effie gil in 6 months, sooner on as needed basis. Patient is agreeable to this plan and verbalizes understanding of instructions. He was given the opportunity to ask questions and all questions answered. Thank you for allowing me to participate in his care Medications: Changed From pantoprazole 40 mg PO BID PRN Acid Reflux To pantoprazole 40 mg PO DAILY 90 tabs 0RF Acid Reflux Coding Level of Care Code Est Pt Level 4 (30972) Diagnoses Constipation K59.04 Constipation type: chronic idiopathic constipation GERD (gastroesophageal reflux disease) K21.9 Esophagitis presence: esophagitis presence not specified PEG tube malfunction K94.23 Time Spent (min) 40 Comment 25 min spent with pt and add. 15 min spent reviewing his records and consulting with GS
== END 2022-10-19 16:06 | disposition home or self-care (01) ==
LOC: HO.HGI 15:34
PROVIDERS: PCP Internal Medicine; Visit Provider Nurse Practitioner Family
DX: K59.04 Chronic idiopathic constipation (principal); K21.9 Gastro-esophageal reflux disease without esophagitis; K94.23 Gastrostomy malfunction
CPT/HCPCS: 99214

== ENCOUNTER → 2022-10-19 15:34 | Outpatient (BNVA) | payer MEDICARE, SELFPAY | PROVIDERS: PCP Internal Medicine; Visit Provider Nurse Practitioner Family | DX: K94.23 Gastrostomy malfunction (principal); K21.9 Gastro-esophageal reflux disease without esophagitis; K59.04 Chronic idiopathic constipation | CPT/HCPCS: 99212 ==

== ENCOUNTER 2022-10-22 12:30 | Outpatient (REF) | payer MEDICARE, SELFPAY ==
--- NOTE | ~2022-10-22 | XR_ITS ---
EXAMINATION: XR ABDOMEN KUB CLINICAL INDICATION: Parkinson's disease. Check jejunostomy tube location. COMPARISON: PEG/J-tube insertion 05/19/2022. TECHNIQUE: AP view of the abdomen. FINDINGS: Patient appears to have a gastrojejunostomy tube rather than a jejunostomy tube. A small retention balloon is seen in what appears to be the stomach. A catheter is seen extending down the pelvis and the tip of the gastrojejunostomy tube appears to be overlying the inferior SI joint. The bowel gas pattern is normal with no evidence of ileus or obstruction. No unusual soft tissue calcifications are noted. Bilateral hip prostheses are again noted. Degenerative changes are seen throughout the spine. XR/XR KUB IMPRESSION: The tip of the gastrojejunostomy tube appears to be in the region of the inferior SI joint.
== END 2022-10-22 12:31 | disposition home or self-care (01) ==
LOC: HO.XRAY 12:30
PROVIDERS: Visit Provider Surgery
DX: G20 Parkinson's disease (principal)
CPT/HCPCS: 74018

== ENCOUNTER 2022-10-28 13:24 | Outpatient (AMB) | payer MEDICARE, SELFPAY ==
--- NOTE | 2022-10-28 13:24 | MHC.OFFVIS ---
Intake Vital Signs 10/28/22 13:25 Height 6 ft Intake Visit Reasons: PEG J- tube check Intake Note: This patient presents for a PEG J-tube check. Patient c/o; ? dislodged Box Toe Cutter Required: No Accompanied by: Other Relationship Allergies amlodipine Allergy (Unknown, Verified 10/28/22 13:26) pt does not know HPI PEG J- tube check HPI Details 67-year-old male, with known progressive Parkinson's disease, here to schedule for insertion of his PEG J-tube for Duopainfusion. He actually has had this inserted 3 times already but each time, he had been doing this out by accident. This was dislodged again last week as he says that this was accidentally pulled out when he put this in his pant pocket. He feels that he do open infusion has helped him a lot as he has been able to control his symptoms with this. He says he actually has been able to play golf whenever he is on the infusion. He therefore wants this reinserted. His symptoms of Parkinson's are mostly with very poor balance, difficult with walking, as well as fogginess of his mental status. [facility] Medical History Acute bursitis of left shoulder Annual physical exam Arthritis Axillary nerve palsy Complex regional pain syndrome of right upper extremity Constipation COPD (chronic obstructive pulmonary disease) Difficulty swallowing Encounter for screening for lung cancer Family history of ischemic heart disease and other diseases of the circulatory system Hyperlipidemia Neck pain Nonrheumatic aortic (valve) insufficiency Parkinson disease Pneumonia Pure hypercholesterolemia, unspecified Smoker Spondylosis of lumbar spine Surgical History History of arthroscopy of shoulder History of colonoscopy History of esophagogastroduodenoscopy (EGD) History of lumbar laminectomy History of percutaneous endoscopic gastrostomy History of surgery History of total hip arthroplasty Hx of umbilical hernia repair Family History Father CVD (cardiovascular disease) Mother CVD (cardiovascular disease) Brother No problems noted. Brother Brain cancer Sister No problems noted. Sister MRSA (methicillin resistant Staphylococcus aureus) Daughter No problems noted. Social History Housing: House Are you a primary manager critical care unit to a significant other at home: No Do you presently have visiting nurse or other home services: No Alcohol intake: current Alcohol intake frequency: holidays/special occasions only Alcohol type: beer Patient Tobacco Use Status: Current everyday Tobacco user Tobacco use type: Cigarette Cigarettes Per Day: 2 Years Smoked: 50 e-Cigarette/Vaping Use: Never Used Substance Use Type: Marijuana Advance Directives Date on File: 06/03/15 service: No Current occupational status: employed Current occupation: Right Handed Cognitive needs: No Hearing needs: No Vision needs: No Review of Systems Const Denies chills and Denies fever(s) Card Denies chest pain Resp Denies cough GI Denies abdominal pain Denies difficulty urinating Neuro Details: Poor balance Physical Exam Const Other: On wheelchair, flat affect, answers questions appropriately General: comfortable and no acute distress Resp Effort & Inspection: normal respiratory effort Cardio Rate: regular rate GI Other: PEG -tube in place without inner to jejunostomy tube Palpation (GI): Soft to palpation, not firm and nontender Assessment & Plan Assessment & Plan (1) Parkinsons disease: Code(s): G20 - Parkinson's disease Plan: He has had a PEG J-tube for Duopa infusions for control of his Parkinson's disease symptoms. However, he has accidentally pulled this out again last week. He wants this reinserted. He says that he is able to play golf and do a lot more with the infusions. I reviewed with him the technique of PEG J-tube placement. I discussed the risks including but not limited to bleeding, infections, injury to bowel, tube dislodgement, tube leak, any risks of anesthesia including respiratory failure, MO and strokes, as well as the benefits and alternatives. He has given consent. He did have a problem with respiratory failure 1 time with the procedure. He has known ex-smoker so he is at risk for this. Coding Level of Care Code Est Pt Level 4 (80827) Diagnoses Parkinsons disease G20
== END 2022-10-28 13:54 | disposition home or self-care (01) ==
PROVIDERS: PCP Internal Medicine; Visit Provider Surgery
DX: G20 Parkinson's disease (principal)
CPT/HCPCS: 99214

== ENCOUNTER → 2022-10-28 13:24 | Outpatient (BNVA) | payer MEDICARE, SELFPAY | PROVIDERS: PCP Internal Medicine; Visit Provider Surgery | DX: G20 Parkinson's disease (principal) | CPT/HCPCS: 99212 ==

== ENCOUNTER 2022-10-30 10:44 | Outpatient (AMB) | payer MEDICARE, SELFPAY ==
--- NOTE | 2022-10-30 10:45 | MHC.OFFVIS ---
Intake Vital Signs 10/30/22 10:47 Height 6 ft Weight 222 lb BMI 30.1 Intake Visit Reasons: OV - [place] Intake Note: Ko is a 67 year old male who presnets today with complaints of left shoulder pain after sustaining a fall about 3 days ago. He explains that he fell on the left side and has had pain since. He was not seen in the ED. Denies numbness and tingling. Allergies amlodipine Allergy (Unknown, Verified 10/30/22 10:47) pt does not know HPI OV - [place] HPI Details Ko is a 67 year old man who presents with ~3 days of left shoulder pain, S/P fall on 10/27/22. He complains of pain in his left shoulder, as well as limited ROM. He is unable to abduct his shoulder. He has Parkinson's. He says he normally falls onto his right side. [facility] Medical History (Updated 10/30/22 @ 11:54 by Rahat Sanchez) Acute bursitis of left shoulder Annual physical exam Arthritis Axillary nerve palsy Complex regional pain syndrome of right upper extremity Constipation COPD (chronic obstructive pulmonary disease) Difficulty swallowing Encounter for screening for lung cancer Family history of ischemic heart disease and other diseases of the circulatory system Hyperlipidemia Neck pain Nonrheumatic aortic (valve) insufficiency Parkinson disease Pneumonia Pure hypercholesterolemia, unspecified Shoulder pain, left Smoker Spondylosis of lumbar spine Surgical History History of arthroscopy of shoulder History of colonoscopy History of esophagogastroduodenoscopy (EGD) History of lumbar laminectomy History of percutaneous endoscopic gastrostomy History of surgery History of total hip arthroplasty Hx of umbilical hernia repair Family History Father CVD (cardiovascular disease) Mother CVD (cardiovascular disease) Brother No problems noted. Brother Brain cancer Sister No problems noted. Sister MRSA (methicillin resistant Staphylococcus aureus) Daughter No problems noted. Social History Housing: House Are you a primary career placement specialist to a significant other at home: No Do you presently have visiting nurse or other home services: No Alcohol intake: current Alcohol intake frequency: holidays/special occasions only Alcohol type: beer Patient Tobacco Use Status: Current everyday Tobacco user Tobacco use type: Cigarette Cigarettes Per Day: 2 Years Smoked: 50 e-Cigarette/Vaping Use: Never Used Substance Use Type: Marijuana Advance Directives Date on File: 06/03/15 service: No Current occupational status: employed Current occupation: Right Handed Cognitive needs: No Hearing needs: No Vision needs: No Review of Systems Const All systems reviewed & are unremarkable except as noted in HPI and below Physical Exam Vital Signs: BMI result Body Mass Index 30.1 Const General: no acute distress and alert Orientation/consciousness: patient oriented x3 Neuro General: patient oriented x3 Extrem Other: Left Shoulder: Inability to abduct No bony tenderness to palpation Psych Appearance: grossly normal Affect: normal affect Attitude: cooperative Office Procedures Joint Injection/Drain Joint Injection/Drain Details: Injected 1 mL of Decadron and 3 mL 1% lidocaine and 3 mL of 0.25% Marcaine. Site was prepped using aseptic technique. Patient tolerated the procedure well. Primary Site: left shoulder Approach Used: posterolateral Coding 70611 - Large joint Procedure code (CPT) selection complete Results Reviewed Results Reviewed: 10/30/22 11:44 Lidocaine HCl 2 % MPF [Xylocaine 2 % MPF] 5 ml .ROUTE .STK-MED ONE dexAMETHasone sod phosphate [Decadron] 4 mg .ROUTE .STK-MED ONE I personally reviewed relevant radiographs. Moderate glenohumeral OA left shoulder Assessment & Plan Assessment & Plan (1) Bursitis of left shoulder: Code(s): M75.52 - Bursitis of left shoulder Plan: This is a 67 year old man with left shoulder bursitis, S/P fall, DOI: 10/27/22. He has pain with daily activity and is unable to abduct his shoulder. I discussed his diagnosis and treatment options. I injected his left shoulder today, which he tolerated well. He will follow up in 3-4 months. If his symptoms persist or worsen in the next few weeks he can contact the clinic for a PT referral (2) Parkinsons disease: Code(s): G20 - Parkinson's disease Plan: Continues to be a high fall risk but continues to play golf. Plan Scribed for Maximus Wilkins MD by Rahat Sanchez medical field representative, on 10/30/22 at 11:50 AM, EST. Orders: Orders XR shoulder LT min 2V 10/30/22 M25.512 - Pain in left shoulder Coding Level of Care Code Est Pt Level 4 (20193) Diagnoses Bursitis of left shoulder M75.52 Parkinsons disease G20 CPT Codes Coding - 94530 Large joint: 66930 - Large joint ([id number])
[2022-10-30 10:47] VITALS: BMI 30.1
== END 2022-10-30 11:56 | disposition home or self-care (01) ==
LOC: HO.HOS 10:44
PROVIDERS: PCP Internal Medicine; Visit Provider Orthopaedic Surgery
DX: M75.52 Bursitis of left shoulder (principal); G20 Parkinson's disease
CPT/HCPCS: 20610; 99214

== ENCOUNTER 2022-10-30 10:44 | Outpatient (REF) | payer MEDICARE, SELFPAY ==
--- NOTE | ~2022-10-30 | XR_ITS ---
EXAMINATION: XR SHOULDER, LEFT CLINICAL INFORMATION: Pain COMPARISON: None available. TECHNIQUE: Two views of the left shoulder. FINDINGS: No acute fracture. The humeral head is relatively inferiorly positioned relative to the glenoid. There is glenohumeral joint space narrowing subchondral sclerosis and proliferative osteophyte along the articular surface margin. There is a small erosion near the expected insertion of the rotator cuff with faint soft tissue calcification. There is narrowing of the AC joint and there are spurs along the inferior aspect of the AC joint and the tip of the acromion. Some narrowing of the acromiohumeral interval. XR/XR shoulder LT min 2V IMPRESSION: 1. No acute fracture or subluxation. 2. There is relatively inferior position of the humeral head relative to the glenoid. There is arthritic change.
== END 2022-10-30 10:45 | disposition home or self-care (01) ==
LOC: HO.HOSX 10:44
PROVIDERS: PCP Internal Medicine; Visit Provider Orthopaedic Surgery
DX: M75.52 Bursitis of left shoulder (principal); M25.512 Pain in left shoulder; G20 Parkinson's disease; Z91.81 History of falling
CPT/HCPCS: 20610; 73030; 99212; J1100

== ENCOUNTER 2022-11-12 12:53 | Outpatient (AMB) | payer MEDICARE, SELFPAY ==
--- NOTE | 2022-11-12 13:06 | A.OFFVIS_ITS ---
Intake Intake Visit Reasons: URGENT APPT per MD Xiao([phone]) Intake Note: Patient presents for urgent appointment. Allergies amlodipine Allergy (Unknown, Verified 11/12/22 13:06) pt does not know Medication List - Last Reconciled 11/12/22 by Quita Mckinnon MD Anoro Ellipta 62.5-25 mcg/actuation (umeclidinium-vilanterol) 1 inh inhalation DAILY NS carbidopa-levodopa 25-100 mg 1.5 - 2 tabs PO QID 30 days carbidopa-levodopa 4.63-20 mg/mL (Duopa) Morning dose 9.5ml, Basal dose 3.0ml x's 16 hrs, w/ bolus dose 1 ml q 2 hr prn off-time.; clonazepam 2 mg (2 x 1 mg) PO BEDTIME 30 days furosemide 20 mg PO DAILY [Hospital bed As directed] methylcellulose (laxative) (Citrucel) 500 mg PO DAILY onabotulinumtoxinA (Botox) 100 units IM ONCE 12 weeks oxycodone-acetaminophen 5-325 mg 1 tab PO Q8H PRN 30 days pantoprazole 40 mg PO DAILY pramipexole 0.5 mg (1/2 x 1 mg) PO QID 30 days sennosides (senna) 17.2 mg (2 x 8.6 mg) PO BEDTIME PRN walker 4-wheeled folding seated walker with brakes zolpidem 5 - 10 mg (0.5 - 1 x 10 mg) PO BEDTIME 14 days HPI HPI Comments History of Present Illness Details 67-yr-old male calls for urgent follow up. He has been OFF Duopa for past 4-5 weeks due to problems with The J tube. He has an appointment with Dr. Mcgill next week for his J tube In the [facility] while he reports frequent freezing episodes and increase in anxiety . He is on sinemet 25/100 2 tabs qid, pramipexole 1mg tid , apokyn as needed( usi ng it 1-2 times a day, but he ran out of samples.)He reports that he was doing good with Duopa for 6 mths with decrease in fluctuations and freezing episodes. COUNTS INCLUDE 234 BEDS AT THE [facility] Medical History Acute bursitis of left shoulder Annual physical exam Arthritis Axillary nerve palsy Complex regional pain syndrome of right upper extremity Constipation COPD (chronic obstructive pulmonary disease) Difficulty swallowing Encounter for screening for lung cancer Family history of ischemic heart disease and other diseases of the circulatory system Hyperlipidemia Neck pain Nonrheumatic aortic (valve) insufficiency Parkinson disease Pneumonia Pure hypercholesterolemia, unspecified Shoulder pain, left Smoker Spondylosis of lumbar spine Surgical History History of arthroscopy of shoulder History of colonoscopy History of esophagogastroduodenoscopy (EGD) History of lumbar laminectomy History of percutaneous endoscopic gastrostomy History of surgery History of total hip arthroplasty Hx of umbilical hernia repair Family History Father CVD (cardiovascular disease) Mother CVD (cardiovascular disease) Brother No problems noted. Brother Brain cancer Sister No problems noted. Sister MRSA (methicillin resistant Staphylococcus aureus) Daughter No problems noted. Social History Housing: House Are you a primary home health care provider to a significant other at home: No Do you presently have visiting nurse or other home services: No Alcohol intake: current Alcohol intake frequency: holidays/special occasions only Alcohol type: beer Patient Tobacco Use Status: Current everyday Tobacco user Tobacco use type: Cigarette Cigarettes Per Day: 2 Years Smoked: 50 e-Cigarette/Vaping Use: Never Used Substance Use Type: Marijuana Advance Directives Date on File: 06/03/15 service: No Current occupational status: employed Current occupation: Right Handed Cognitive needs: No Hearing needs: No Vision needs: No Physical Exam Const General: no acute distress and alert Orientation/consciousness: patient oriented x3 Neuro Other: No tremors, mild decreased FFM and foot taps, speech- slurred dysprosody Face- decreased blink and expression Gait - mild stoop and tilt to right , good strid e, mild off balance, slow , decreased arm swings leola General: patient oriented x3 Psych Appearance: grossly normal Affect: normal affect Attitude: cooperative Assessment & Plan Assessment & Plan (1) Parkinsons disease: Comment: with frequent fluctuations and OFF periods Code(s): G20 - Parkinson's disease (2) S/P percutaneous endoscopic gastrostomy (PEG) tube placement: Comment: scheduled for revision next week Code(s): Z93.1 - Gastrostomy status (3) Difficulty walking: Code(s): R26.2 - Difficulty in walking, not elsewhere classified Plan Decrease Pramipexole 1mg 1/2 tab qid ( patient has some compulsive behavior - goal is to wean off pramipexole) Increase sinemet 25/100 2tabs 5 times a day ( can be adjusted after DUOPA is restarted ) STOP APOKYN Restart Duopa after J tube revision Medications: Changed From pramipexole 1.5 mg (1.5 x 1 mg) PO QID 180 tabs 3RF 30 days To pramipexole 1 mg PO TID 90 tabs 3RF 30 days From pramipexole 1 mg PO TID 90 tabs 3RF 30 days To pramipexole 0.5 mg (1/2 x 1 mg) PO QID 60 tabs 3RF 30 days Discontinued apomorphine (APOKYN) DNExceed 5 doses/24h Discontinued Reason: Doctor's Order 0.4 mL subcut Q2H PRN 60 mL 6RF parkinsonism 30 days carbidopa-levodopa 25-100 mg ER overnight (when Duopa off) Discontinued Reason: Patient no longer taking 1 - 2 tabs PO BID 120 tabs 3RF 30 days On Hold carbidopa-levodopa 4.63-20 mg/mL (Duopa) Hold Comment: Doctor's Order Morning dose 9.5ml, Basal dose 3.0ml x's 16 hrs, w/ bolus dose 1 ml q 2 hr prn off-time.; 28 mL 0RF Coding Level of Care Code Tele Est Pt Level 5 (24189) Diagnoses Parkinsons disease G20 S/P percutaneous endoscopic gastrostomy (PEG) tube placement Z93.1 Difficulty walking R26.2 Time Spent (min) 32 Comment 20 min with patient 12 min reviewing notes documenting
== END 2022-11-12 14:40 | disposition home or self-care (01) ==
PROVIDERS: PCP Internal Medicine; Visit Provider Psychiatry & Neurology Neurology
DX: G20 Parkinson's disease (principal); Z93.1 Gastrostomy status; R26.2 Difficulty in walking, not elsewhere classified
CPT/HCPCS: 99443

== ENCOUNTER → 2022-11-12 12:53 | Outpatient (BNVA) | payer MEDICARE, SELFPAY | PROVIDERS: PCP Internal Medicine; Visit Provider Psychiatry & Neurology Neurology ==

== ENCOUNTER 2022-11-17 06:50 | Day surgery (SDC) | payer MEDICARE, SELFPAY ==
--- NOTE | 2022-11-16 08:59 | P.CONAN_ITS ---
Documented by User: Cristy Roberto NP 11/16/22 08:59 HPI - Anesthesia Eval Consult details Narrative: 67yo M for Endoscopic Gastrostmy J-Tube Placement w/ fluooscopy Previous insertion 08/2022 with GA-ETT 7.5 PMFSH Active Problems Active Problems: All Active Problems (Updated 11/12/22 @ 13:14 by Quita Mckinnon MD) Bursitis of left shoulder (Acute) Edema (Acute) Difficulty walking (Acute) S/P percutaneous endoscopic gastrostomy (PEG) tube placement (Acute) Contracture, unspecified hip (Acute) History of bilateral hip arthroplasty (Acute) Chest pain (Acute) Trigger finger, right middle finger (Acute) Osteoarthritis of left hand (Acute) Cervical radiculopathy (Acute) Rotator cuff arthropathy of right shoulder (Acute) Preoperative cardiovascular examination (Acute) SOB (shortness of breath) (Acute) Falls (Acute) Sialorrhea (Acute) 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 (Acute) Tubular adenoma of colon (Acute) Trigger finger, left middle finger (Acute) Frequent falls (Acute) Parkinsons disease (Acute) PEG tube malfunction (Acute) COPD (chronic obstructive pulmonary disease) (Acute) Neck pain (Acute) Constipation (Acute) Spondylosis of lumbar spine (Acute) Complex regional pain syndrome of right upper extremity (Acute) Encounter for screening for lung cancer (Acute) Hyperlipidemia (Acute) Annual physical exam (Acute) Smoker (Acute) Parkinson disease (Acute) Pneumonia (Acute) Axillary nerve palsy (Acute) Acute bursitis of left shoulder (Acute) Past Medical History Medical History Acute bursitis of left shoulder Annual physical exam Arthritis Axillary nerve palsy Complex regional pain syndrome of right upper extremity Constipation COPD (chronic obstructive pulmonary disease) Difficulty swallowing Encounter for screening for lung cancer Family history of ischemic heart disease and other diseases of the circulatory system Hyperlipidemia Neck pain Nonrheumatic aortic (valve) insufficiency Parkinson disease Pneumonia Pure hypercholesterolemia, unspecified Shoulder pain, left Smoker Spondylosis of lumbar spine Family History Family History Father CVD (cardiovascular disease) Mother CVD (cardiovascular disease) Brother No problems noted. Brother Brain cancer Sister No problems noted. Sister MRSA (methicillin resistant Staphylococcus aureus) Daughter No problems noted. Family history of problems with anesthesia: No Surgical History Surgical History History of arthroscopy of shoulder History of colonoscopy History of esophagogastroduodenoscopy (EGD) History of lumbar laminectomy History of percutaneous endoscopic gastrostomy History of surgery History of total hip arthroplasty Hx of umbilical hernia repair History of Problems with Anesthesia: No Social History Social History Housing: House Are you a primary healthcare business analyst to a significant other at home: No Do you presently have visiting nurse or other home services: No Alcohol intake: current Alcohol intake frequency: holidays/special occasions only Alcohol type: beer Patient Tobacco Use Status: Current someday Tobacco user Tobacco use type: Cigarette Cigarettes Per Day: 2 Years Smoked: 50 e-Cigarette/Vaping Use: Never Used Use of substances other than those prescribed or required for medical reasons: No Substance Use Type: Marijuana Are you DNR?: No Advance Directives: No Advance Directives Information Provided: Yes Advance Directives Date on File: 06/03/15 service: No Current occupational status: employed Current occupation: Right Handed Cognitive needs: No Hearing needs: No Vision needs: No Meds Allergies Allergy/AdvReac Type Severity Reaction Status Date / Time amlodipine Allergy Unknown pt does Verified 11/12/22 13:06 not know Exam Exam Date and Time: November 16, 2022 0859 Pertinent Lab Results Pertinent Lab Results: Laboratory Tests 07/07/22 07/07/22 08:47 08:47 WBC 6.3 Hgb 13.2 L Hct 41.9 L Plt Count 206 Sodium 139 Potassium 5.2 H Chloride 104 Carbon Dioxide 31 H BUN 21 H Creatinine 0.93 Narrative Narrative: ECHO 07/2022 Conclusions: - 1. Normal LV systolic function with impaired relaxation filling pattern? 2. Normal cardiac valvular Dopplers? 3. Mildly dilated ascending aorta at 4.3 cm? 4. No gross pericardial effusion ?? EKG 03/2022 Vent. Rate : 057 BPM ? ? Atrial Rate : 057 BPM ?? P-R Int : 178 ms? QRS Dur : 098 ms ? ? QT Int : 436 ms ? ? ? P-R-T Axes : 079 044 053 degrees ?? QTc Int : 424 ms ? Sinus bradycardia with sinus arrhythmia Otherwise normal ECG When compared with ECG of 18-JUL-2020 11:59, No significant change was found Airway Mallampati Class: I TM Dist: >3cm Neck ROM: Full Loose/Missing/Broken Teeth: Yes, Upper and Lower Heart: ok Lungs: ok Assessment and Plan Assessment Anesthesia Assessment: Chart Reviewed Final Anesthetic Review Family History of Problems with Anesthesia: No History of Problems with Anesthesia: No Documented by User: Stephenie Cotto MD 11/17/22 08:04 [facility] Past Medical History Medical History Acute bursitis of left shoulder Annual physical exam Arthritis Axillary nerve palsy Complex regional pain syndrome of right upper extremity Constipation COPD (chronic obstructive pulmonary disease) Difficulty swallowing Encounter for screening for lung cancer Family history of ischemic heart disease and other diseases of the circulatory system Hyperlipidemia Neck pain Nonrheumatic aortic (valve) insufficiency Parkinson disease Pneumonia Pure hypercholesterolemia, unspecified Shoulder pain, left Smoker Spondylosis of lumbar spine Family History Family History Father CVD (cardiovascular disease) Mother CVD (cardiovascular disease) Brother No problems noted. Brother Brain cancer Sister No problems noted. Sister MRSA (methicillin resistant Staphylococcus aureus) Daughter No problems noted. Surgical History Surgical History History of arthroscopy of shoulder History of colonoscopy History of esophagogastroduodenoscopy (EGD) History of lumbar laminectomy History of percutaneous endoscopic gastrostomy History of surgery History of total hip arthroplasty Hx of umbilical hernia repair Social History Social History Housing: House Are you a primary healthcare business analyst to a significant other at home: No Do you presently have visiting nurse or other home services: No Alcohol intake: current Alcohol intake frequency: holidays/special occasions only Alcohol type: beer Patient Tobacco Use Status: Current someday Tobacco user Tobacco use type: Cigarette Cigarettes Per Day: 2 Years Smoked: 50 e-Cigarette/Vaping Use: Never Used Use of substances other than those prescribed or required for medical reasons: No Substance Use Type: Marijuana Are you DNR?: No Advance Directives: No Advance Directives Information Provided: Yes Advance Directives Date on File: 06/03/15 service: No Current occupational status: employed Current occupation: Right Handed Cognitive needs: No Hearing needs: No Vision needs: No Meds Allergies Allergy/AdvReac Type Severity Reaction Status Date / Time amlodipine Allergy Unknown pt does Verified 11/12/22 13:06 not know Assessment and Plan Final Anesthetic Review NPO: Yes ASA Class: III Final Preanesthetic Review: No Changes in Pt Med Stat, Meds/Allgs Chart Reviewed , Consent Obtained/Reviewed and Anes Risks/Benef Reviewed Patient Risk: Low Procedure Risk: Low Anesthetic Plan Anesthetic Plan: GA Disposition: Standard PACU
[2022-11-17] VITALS (8 sets, daily range): BP systolic 115–155; BP diastolic 65–82; PULSE 56–67; RESP 16–20; TEMP 36.1–36.4; O2SAT 95–100; BMI 27.8
--- NOTE | ~2022-11-17 | FL_ITS ---
EXAMINATION: XR FLUOROSCOPY WITH IMAGES CLINICAL INFORMATION: G-tube placement. COMPARISON: None available. TECHNIQUE: Fluoroscopy Supervised By: Dr. Bin Mcgill. Fluoroscopy Time: 0.1 minute. Cumulative Dose: 5.07 mGy. DAP: 1.38 Gycm2. Images: 1. FINDINGS: Fluoroscopy guidance was provided to referring physician for G-tube placement. There is a wire seen within the left upper quadrant. FL/FL guidance in OR IMPRESSION: Fluoroscopy guidance was provided to the referring physician for G-tube placement.
[2022-11-17] MEDS: Lactated Ringers 1,000 ML 100 ML IVCONT (07:35)
--- NOTE | 2022-11-17 08:35 | MHC.SHP ---
Pre-Procedural Eval Section A Date of Service: 11/17/22 The patient is an INPATIENT: No Changes since office visit: No Cold of Flu in the past 2 weeks, No New Medical Problems, No Changes in Medication and No Patient answered all questions The History & Physical has been completed within 30 days and I have reviewed it.: Yes Section B Chief Complaint: Parkinson's disease Allergies: Allergies Allergy/AdvReac Type Severity Reaction Status Date / Time amlodipine Allergy Unknown pt does Verified 11/12/22 13:06 not know Plan I have reviewed the history and physical and performed a pertinent physical examination on my patient. No changes have occurred unless specified. Time Spent With Patient Time: Total time managing care of this patient today ____ minutes.
--- NOTE | 2022-11-17 10:00 | W.PM.OPN ---
Operative Note Operative Note Date of Service: 11/17/22 Narrative: Preop diagnosis: Parkinson's disease Postop diagnosis Parkinson's disease Procedure: Peg J tube placement Surgeon: Bin Mcgill MD occupational therapist assistant: ANDERSON Tompkins The patient is a 67-year-old male with worsening Parkinson's disease, who had again pulled out the jejunostomy part of his PEG J.? He has here therefore for? re- insertion of PEG J tube. He understood the technique of the planned procedure.? He was aware of the risks, benefits, and alternatives.? His family was involved with the discussion. He was brought the operating room.? ? He was placed supine under general anesthesia via endotracheal tube. A surgical time-out had been done.? A bite block was in position. ?I inserted the endoscope through the bite block into the oropharynx.? The vocal cords were visualized.? The esophageal slit was seen posterior to this.? This esophageal slit was intubated.? The scope was gently advanced to the entire length of the esophagus to stomach.? The stomach was insufflated. ? I was able to visualize the internal bolster.? The rest of the G-part of the peg J? apparatus was intact so we decided that we would used the same G-tube and ? reinsert the jejunostomy through the same G-tube.? We trimmed the G part of the G-tube.? We attached the ports.? We threaded the jejunostomy tube through the port untill this was seen in the lumen.? This was grasped with the biopsy forceps.? We? gently advanced the scope with insufflation through the pyloric orifice, pulling the tip of the? jejunostomy tube with the scope using the biopsy forceps.? We advanced the scope gently with insufflation all the way to the jejunum past the C-loop of the duodenum. We then used the C-arm to? image the where the tip of the did not some with tube was.? We could see that this was past the midline so this confirmed the good location of the tip of the jejunostomy.? The endoscope was gently? withdrawn to make that there was no significant coiling? of the tube in the stomach. ? We visualized the internal bolster and this appeared to be snug on the anterior wall of the stomach. The endoscope was completely pulled? out.? We took more images using the C-arm and this confirmed? that the tip of the jejunostomy tube was still in place in the jejunum.? ? The ports were reattached to the tip of the peg J tube. The procedure was then completed . The patient tolerated procedure well.? There were no immediate complications. There was no significant blood loss.? The patient was extubated without difficulty and transferred to the recovery room with stable vital signs.
== END 2022-11-17 11:38 | disposition home or self-care (01) ==
PROVIDERS: PCP Internal Medicine; Visit Provider Surgery
PROC: (CPT 43246; principal; 2022-11-17 08:40)
DX: Z43.1 Encounter for attention to gastrostomy (principal); G20 Parkinson's disease; R26.2 Difficulty in walking, not elsewhere classified; R13.10 Dysphagia, unspecified; Z91.81 History of falling; E78.5 Hyperlipidemia, unspecified; R60.9 Edema, unspecified; K22.70 Barrett's esophagus without dysplasia; G58.8 Other specified mononeuropathies; J44.9 Chronic obstructive pulmonary disease, unspecified; G90.511 Complex regional pain syndrome I of right upper limb; Z79.899 Other long term (current) drug therapy; Z88.8 Allergy status to other drugs, medicaments and biological substances; F12.90 Cannabis use, unspecified, uncomplicated; F17.210 Nicotine dependence, cigarettes, uncomplicated
CPT/HCPCS: 43246; J0131; J0690; J1100; J2371; J2405; J3010

== ENCOUNTER → 2022-11-17 06:50 | Outpatient (BNV) | payer MEDICARE, SELFPAY | PROVIDERS: PCP Internal Medicine; Visit Provider Surgery | DX: G20 Parkinson's disease (principal); Z43.1 Encounter for attention to gastrostomy | CPT/HCPCS: 43246 ==

== ENCOUNTER → 2022-11-23 10:45 | Outpatient (BNVA) | payer MEDICARE, SELFPAY | PROVIDERS: PCP Internal Medicine; Visit Provider Psychiatry & Neurology Neurology ==

== ENCOUNTER 2022-11-23 10:47 | Outpatient (AMB) | payer MEDICARE, SELFPAY ==
--- NOTE | 2022-11-23 10:49 | A.OFFVIS_ITS ---
Intake Intake Visit Reasons: follow up(per MD) Allergies amlodipine Allergy (Unknown, Verified 11/12/22 13:06) pt does not know HPI HPI Comments History of Present Illness Details 67-yr-old male calls for follow up. He has been OFF Duopa for past 4-5 weeks due to problems with J Tube . he johansen dhis tube reinserted this week but it is off now. It is not clear how the tibe wa spuleld out He trie drytary sample slast week but did not notice much difference. Currnetly he is on sinemet 25/100 2tabs 5 times a day , pramipexole 1mg - 1-1/2-1-/2 apokyn 0.6 ml 2 times a day as needed. He still reporst feeling slow and waking up stiff He reports that he was doing good with Duopa for 6 mths with decrease in fluctuations and freezing episodes. [facility] Medical History Acute bursitis of left shoulder Annual physical exam Arthritis Axillary nerve palsy Complex regional pain syndrome of right upper extremity Constipation COPD (chronic obstructive pulmonary disease) Difficulty swallowing Encounter for screening for lung cancer Family history of ischemic heart disease and other diseases of the circulatory system Hyperlipidemia Neck pain Nonrheumatic aortic (valve) insufficiency Parkinson disease Pneumonia Pure hypercholesterolemia, unspecified Shoulder pain, left Smoker Spondylosis of lumbar spine Surgical History History of arthroscopy of shoulder History of colonoscopy History of esophagogastroduodenoscopy (EGD) History of lumbar laminectomy History of percutaneous endoscopic gastrostomy History of surgery History of total hip arthroplasty Hx of umbilical hernia repair Family History Father CVD (cardiovascular disease) Mother CVD (cardiovascular disease) Brother No problems noted. Brother Brain cancer Sister No problems noted. Sister MRSA (methicillin resistant Staphylococcus aureus) Daughter No problems noted. Social History Housing: House Are you a primary dog day care attendant to a significant other at home: No Do you presently have visiting nurse or other home services: No Alcohol intake: current Alcohol intake frequency: holidays/special occasions only Alcohol type: beer Patient Tobacco Use Status: Current someday Tobacco user Tobacco use type: Cigarette Cigarettes Per Day: 2 Years Smoked: 50 e-Cigarette/Vaping Use: Never Used Substance Use Type: Marijuana Advance Directives Date on File: 06/03/15 service: No Current occupational status: employed Current occupation: Right Handed Cognitive needs: No Hearing needs: No Vision needs: No Physical Exam Const General: no acute distress and alert Assessment & Plan Assessment & Plan (1) Parkinsons disease: Comment: with frequent fluctuations and OFF periods Code(s): G20 - Parkinson's disease (2) S/P percutaneous endoscopic gastrostomy (PEG) tube placement: Comment: scheduled for revision next week Code(s): Z93.1 - Gastrostomy status (3) Difficulty walking: Code(s): R26.2 - Difficulty in walking, not elsewhere classified Plan Pramipexole 1mg 1-1/2-1-1/2 tab qid ( patient has some compulsive behavior - goal is to wean off pramipexole) sinemet 25/100 2tabs 5 times a day Start sinemet ER 25/100 2 tabs qhs APOKYN 0.6 ml sq as needed max tid D/C duopa Medications: New carbidopa-levodopa 25-100 mg ER 2 tabs PO BEDTIME 60 tabs 0RF Changed From carbidopa-levodopa 25-100 mg 1.5 - 2 tabs PO QID 240 tabs 1RF 30 days To carbidopa-levodopa 25-100 mg 2 tabs PO .5 times a day 300 tabs 1RF 30 days Coding Level of Care Code Tele Est Pt Level 4 (61012) Diagnoses Parkinsons disease G20 S/P percutaneous endoscopic gastrostomy (PEG) tube placement Z93.1 Difficulty walking R26.2 Time Spent (min) 23
== END 2022-11-23 11:13 | disposition home or self-care (01) ==
PROVIDERS: PCP Internal Medicine; Visit Provider Psychiatry & Neurology Neurology
DX: G20 Parkinson's disease (principal); Z93.1 Gastrostomy status; R26.2 Difficulty in walking, not elsewhere classified
CPT/HCPCS: 99443

== ENCOUNTER 2022-12-29 10:45 | Outpatient (AMB) | payer MEDICARE, SELFPAY ==
--- NOTE | 2022-12-29 10:46 | A.OFFPC_ITS ---
Vital Signs 12/29/22 10:47 Height 6 ft Weight 220 lb BMI 29.8 BP 94/58 L Blood Pressure Location Lt brachial Position Sitting Pulse 72 Pulse Source Pulse Oximeter Pulse Oximetry (%) 96 Oxygen Delivery Method Room Air Intake Visit Reasons: Hospital Follow up Intake Note: Pt is here today for a Hospital follow up visit. Allergies amlodipine Allergy (Unknown, Verified 12/29/22 10:52) pt does not know Tobacco use date assessed: 12/29/22 Dental Screening Dental Screen Date: 12/29/22 Did you have a dental visit in the last 12 months?: Yes Did you have a dental problem in the last 6 months where you did not have access to dental care?: No Was dental information given to patient?: Patient has dentist HPI Hospital Follow up HPI Details Pt presents for f/u for hospitalization for 24 hours at [facility] after a fall and left knee prepatellar hematoma. Patient completed course of antibiotic and the swelling has been decreasing. He is ambulating with a walker but reports difficulty with balance due to his Parkinson's disease. Patient follows up with Neurology regularly [facility] Medical History (Updated 12/29/22 @ 11:29 by Elisabet Ochoa MD) Frequent falls Shoulder pain, left Arthritis Difficulty swallowing Neck pain Constipation Spondylosis of lumbar spine Complex regional pain syndrome of right upper extremity Encounter for screening for lung cancer Hyperlipidemia Annual physical exam Smoker COPD (chronic obstructive pulmonary disease) Pneumonia Axillary nerve palsy Acute bursitis of left shoulder Parkinson disease Family history of ischemic heart disease and other diseases of the circulatory system Pure hypercholesterolemia, unspecified Nonrheumatic aortic (valve) insufficiency Surgical History History of percutaneous endoscopic gastrostomy History of lumbar laminectomy Hx of umbilical hernia repair History of arthroscopy of shoulder History of total hip arthroplasty History of esophagogastroduodenoscopy (EGD) History of colonoscopy History of surgery Family History Father CVD (cardiovascular disease) Mother CVD (cardiovascular disease) Brother No problems noted. Brother Brain cancer Sister No problems noted. Sister MRSA (methicillin resistant Staphylococcus aureus) Daughter No problems noted. Social History Housing: House Are you a primary technical healthcare consultant to a significant other at home: No Do you presently have visiting nurse or other home services: No Alcohol intake: current Alcohol intake frequency: holidays/special occasions only Alcohol type: beer Patient Tobacco Use Status: Current someday Tobacco user Tobacco use type: Cigarette Cigarettes Per Day: 2 Years Smoked: 50 e-Cigarette/Vaping Use: Never Used Substance Use Type: Marijuana Advance Directives Date on File: 06/03/15 service: No Current occupational status: employed Current occupation: Right Handed Cognitive needs: No Hearing needs: No Vision needs: No Questionnaire Thrive Questionnaire Date Thrive assessed: 07/09/22 MAL-7 AMB Questionnaire MAL-7 Date MAL - 7 assessed: 07/09/22 Source: Developed by Drs. Efren Torres, Tamy Rushing, Jerson Vaughan and colleagues, with an educational myriam from [employer]. Review of Systems Const All systems reviewed & are unremarkable except as noted in HPI and below Reports no additional complaints Eyes Reports no additional complaints ENT Reports no additional complaints Resp Reports no additional complaints GI Reports no additional complaints Reports no additional complaints Physical exam (Primary Care) Vital Signs: Last Vital Signs Pulse 72 12/29/22 10:47 BP 94/58 L 12/29/22 10:47 Pulse Ox 96 12/29/22 10:47 Oxygen Delivery Method Room Air 12/29/22 10:47 BMI result Body Mass Index 29.8 Tobacco/Smoking Status: Tobacco use Status Tobacco use date assessed 12/29/22 12/29/22 10:56 Patient Tobacco Use Status Current someday Tobacco 12/29/22 10:47 Tobacco use type Cigarette 12/29/22 10:47 e-Cigarette/Vaping Use Never Used 12/29/22 10:47 Thrive Assessment: Date of Thrive Assessment Date Thrive assessed 07/09/22 12/29/22 10:47 Const General: no acute distress HENMT Head: Yes normal to inspection Eyes General: appearance normal, both eyes and all related structures Neck Neck: Yes supple Resp Effort & Inspection: normal respiratory effort Auscultation: clear to auscultation bilaterally Cardio Rhythm: regular rhythm Heart sounds: S1 normal heart sound present and S2 normal heart sound present GI Inspection: Yes normal to inspection Palpation (GI): Soft to palpation Percussion: Yes normal to percussion Extrem Other: Left prepatellar swelling no erythema or warmth Assessment and Plan Assessment & Plan (1) Frequent falls: Code(s): R29.6 - Repeated falls Plan: Fall prevention discussed with the patient (2) Parkinsons disease: Comment: with frequent fluctuations and OFF periods Code(s): G20 - Parkinson's disease Plan: Continue current medications follow-up with Neurology (3) COPD (chronic obstructive pulmonary disease): Comment: declined inhalers Code(s): J44.9 - Chronic obstructive pulmonary disease, unspecified Plan: Continue Anoro Coding Level of Care Code Est Pt Level 4 (15117) Diagnoses Frequent falls R29.6 Parkinsons disease G20 COPD (chronic obstructive pulmonary disease) J44.9
[2022-12-29 10:47] VITALS: BP 94/58; PULSE 72; O2SAT 96; BMI 29.8
== END 2022-12-29 11:30 | disposition home or self-care (01) ==
PROVIDERS: PCP Internal Medicine; Visit Provider Internal Medicine
DX: R29.6 Repeated falls (principal); G20 Parkinson's disease; J44.9 Chronic obstructive pulmonary disease, unspecified
CPT/HCPCS: 99214

== ENCOUNTER 2023-01-01 09:30 | Outpatient (REF) | payer MEDICARE, SELFPAY ==
[2023-01-01 10:33] LABS: Platelet Count 257 X10*3/uL (160-400)
[2023-01-01 10:35] LABS: Prothrombin Time 12.7 SEC (11.1-13.3)
[2023-01-01 11:09] LABS: Blood Urea Nitrogen 22 mg/dL (9-16); Estimated Glomerular Filt Rate > 60
== END 2023-01-01 09:31 | disposition home or self-care (01) ==
LOC: HO.LAB 09:30
PROVIDERS: Visit Provider Radiology Diagnostic Radiology
DX: G20 Parkinson's disease (principal); D68.9 Coagulation defect, unspecified
CPT/HCPCS: 36415; 82565; 84520; 85049; 85610

== ENCOUNTER → 2023-03-10 15:43 | Outpatient (BNVA) | payer MEDICARE, MEDICAID, SELFPAY | PROVIDERS: PCP Internal Medicine; Visit Provider Nurse Practitioner Family | DX: G20.B2 Parkinson's disease with dyskinesia, with fluctuations (principal); R29.6 Repeated falls; Z93.1 Gastrostomy status | CPT/HCPCS: 99212 ==

== ENCOUNTER 2023-06-14 12:18 | Outpatient (AMB) | payer MEDICARE, MEDICAID, SELFPAY ==
[2023-06-14 12:29] VITALS: BMI 29.8
--- NOTE | 2023-06-14 12:29 | A.OFFVIS_ITS ---
Intake Vital Signs 06/14/23 12:29 Height 6 ft Weight 220 lb BMI 29.8 Intake Visit Reasons: ov- Left shoulder pain Intake Note: Ko is a 67 year old male who presnets today with complaints of left shoulder pain, last injection was done 10/30/22. Last injection was helpful and he would like to repeat injection today Allergies amlodipine Allergy (Unknown, Verified 03/10/23 15:43) pt does not know HPI ov- Left shoulder pain HPI Details Ko is a 68 year old man who returns for a follow-up of his left shoulder bursitis. He was last seen, and injected, on 10/30/22. He complains of pain in his left shoulder, as well as limited ROM. He is unable to abduct his shoulder. He would like a repeat injection. He has Parkinson's. He says he normally falls onto his right side. [facility] Medical History Frequent falls Shoulder pain, left Arthritis Difficulty swallowing Neck pain Constipation Spondylosis of lumbar spine Complex regional pain syndrome of right upper extremity Encounter for screening for lung cancer Hyperlipidemia Annual physical exam Smoker COPD (chronic obstructive pulmonary disease) Pneumonia Axillary nerve palsy Acute bursitis of left shoulder Parkinson disease Family history of ischemic heart disease and other diseases of the circulatory system Pure hypercholesterolemia, unspecified Nonrheumatic aortic (valve) insufficiency Surgical History History of percutaneous endoscopic gastrostomy History of lumbar laminectomy Hx of umbilical hernia repair History of arthroscopy of shoulder History of total hip arthroplasty History of esophagogastroduodenoscopy (EGD) History of colonoscopy History of surgery Family History Father CVD (cardiovascular disease) Mother CVD (cardiovascular disease) Brother No problems noted. Brother Brain cancer Sister No problems noted. Sister MRSA (methicillin resistant Staphylococcus aureus) Daughter No problems noted. Social History Housing: House Are you a primary healthcare facility administrator to a significant other at home: No Do you presently have visiting nurse or other home services: No Alcohol intake: current Alcohol intake frequency: holidays/special occasions only Alcohol type: beer Patient Tobacco Use Status: Current someday Tobacco user Tobacco use type: Cigarette Cigarettes Per Day: 2 Years Smoked: 50 e-Cigarette/Vaping Use: Never Used Substance Use Type: Marijuana Advance Directives Date on File: 06/03/15 service: No Current occupational status: employed Current occupation: Right Handed Cognitive needs: No Hearing needs: No Vision needs: No Review of Systems Const All systems reviewed & are unremarkable except as noted in HPI and below Physical Exam Vital Signs: BMI result Body Mass Index 29.8 Const General: no acute distress, alert and awake Orientation/consciousness: patient oriented x3 HEENT Head: Yes normocephalic and Yes atraumatic Eyes EOM: EOMs intact bilaterally Resp Effort & Inspection: normal respiratory effort and able to speak in complete sentences Cardio Jugular venous distension: no JVD Skin General skin exam: turgor normal Rashes: no rashes Neuro General: patient oriented x3 Extrem Other: Left shoulder with positive Kim and Neer. Painful empty can but he can abduct it. Psych Appearance: grossly normal Affect: normal affect Attitude: cooperative Office Procedures Joint Injection/Drain Joint Injection/Drain Details: Injected 1 mL of Decadron and 3 mL 1% lidocaine and 3 mL of 0.25% Marcaine. S ite was prepped using aseptic technique. Patient tolerated the procedure well. Primary Site: left shoulder Approach Used: posterolateral Coding - Large joint Procedure code (CPT) selection complete Results Reviewed Results Reviewed: I personally reviewed relevant radiographs. left shoulder OA Assessment & Plan Assessment & Plan (1) Osteoarthritis of left shoulder: Code(s): M19.012 - Primary osteoarthritis, left shoulder Plan: Ko is a 68-year-old gentleman with pretty severe Parkinson's and bilateral shoulder problems. Today's complaining of left shoulder pain. This interrupts his daily activities and decreases the quality his daily activities. He continues to enjoy golfing. I injected his left shoulder today. He will follow up on an as-needed basis. Plan Prepared for Maximus Wilkins MD by Rahat Sanchez, medical lab scientist, on 06/14/23 at 12:37 PM, EST. Coding Level of Care Code Est Pt Level 3 (91208) Diagnoses Osteoarthritis of left shoulder M19.012 CPT Codes Coding - Large joint: 76370 - Large joint ([id number])
== END 2023-06-14 13:11 | disposition home or self-care (01) ==
PROVIDERS: PCP Internal Medicine; Visit Provider Orthopaedic Surgery
DX: M19.012 Primary osteoarthritis, left shoulder (principal)
CPT/HCPCS: 20610; 99213

== ENCOUNTER → 2023-06-14 12:18 | Outpatient (BNVA) | payer MEDICARE, MEDICAID, SELFPAY | PROVIDERS: PCP Internal Medicine; Visit Provider Orthopaedic Surgery | DX: M19.012 Primary osteoarthritis, left shoulder (principal) | CPT/HCPCS: 20610; 99212; J0665; J1100 ==

== ENCOUNTER 2023-07-11 00:50 | Emergency (ER) | payer MEDICARE, MEDICAID, SELFPAY ==
[2023-07-11 00:59] VITALS: BP 158/104; PULSE 98; O2SAT 98
[2023-07-11 01:00] VITALS: BP 154/95; PULSE 84; RESP 18; TEMP 36.5; O2SAT 95; BMI 47.2
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
[2023-07-11 01:55] VITALS: BP 154/95; PULSE 84; RESP 18; TEMP 36.5; O2SAT 95
== END 2023-07-11 02:07 | disposition home or self-care (01) ==
PROVIDERS: Emergency Provider Emergency Medicine
DX: G20.A2 Parkinson's disease without dyskinesia, with fluctuations (principal); J44.9 Chronic obstructive pulmonary disease, unspecified; Z79.899 Other long term (current) drug therapy; Z91.81 History of falling; Z93.1 Gastrostomy status
CPT/HCPCS: 99282; 99284

== ENCOUNTER 2023-08-10 13:09 | Outpatient (AMB) | payer MEDICARE, MEDICAID, SELFPAY ==
--- NOTE | 2023-08-10 13:18 | MHC.PC.OV ---
Vital Signs 08/10/23 13:19 Height 6 ft Weight 224 lb BMI 30.4 BP 128/84 Blood Pressure Location Lt brachial Position Sitting Pulse 67 Pulse Source Pulse Oximeter Pulse Oximetry (%) 97 Oxygen Delivery Method Room Air Intake Visit Reasons: Hospital follow up Intake Note: Pt is here today for Hospital follow up visit. Allergies amlodipine Allergy (Unknown, Verified 08/10/23 13:26) pt does not know Tobacco use date assessed: 08/10/23 Fall risk assessment: 2 + Falls in past year Last assessed Fall Risk: 08/10/23 Dental Screening Dental Screen Date: 08/10/23 Did you have a dental visit in the last 12 months?: Yes Did you have a dental problem in the last 6 months where you did not have access to dental care?: No Was dental information given to patient?: Patient has dentist HPI Hospital follow up HPI Details Pt presents for f/u rehab for frequent falls/URI. COPD and Parkinson disease stable on meds. Patient follows up with Neurology and has been getting carbidop/ levodopa by PEG tube. Patient has been taking oxycodone twice a day for chronic shoulder pain prescribed by orthopedic surgeon and was started on lorazepam. Patient was made aware the above medications can increase his risk of falling and dementia. [facility] Medical History Frequent falls Shoulder pain, left Arthritis Difficulty swallowing Neck pain Constipation Spondylosis of lumbar spine Complex regional pain syndrome of right upper extremity Encounter for screening for lung cancer Hyperlipidemia Annual physical exam Smoker COPD (chronic obstructive pulmonary disease) Pneumonia Axillary nerve palsy Acute bursitis of left shoulder Parkinson disease Family history of ischemic heart disease and other diseases of the circulatory system Pure hypercholesterolemia, unspecified Nonrheumatic aortic (valve) insufficiency Surgical History History of percutaneous endoscopic gastrostomy History of lumbar laminectomy Hx of umbilical hernia repair History of arthroscopy of shoulder History of total hip arthroplasty History of esophagogastroduodenoscopy (EGD) History of colonoscopy History of surgery Family History Father CVD (cardiovascular disease) Mother CVD (cardiovascular disease) Brother No problems noted. Brother Brain cancer Sister No problems noted. Sister MRSA (methicillin resistant Staphylococcus aureus) Daughter No problems noted. Social History Housing: House Are you a primary director long term care to a significant other at home: No Do you presently have visiting nurse or other home services: No Alcohol intake: current Alcohol intake frequency: holidays/special occasions only Alcohol type: beer Patient Tobacco Use Status: Current someday Tobacco user Tobacco use type: Cigarette Cigarettes Per Day: 2 Years Smoked: 50 e-Cigarette/Vaping Use: Never Used Substance Use Type: Marijuana Advance Directives Date on File: 06/03/15 service: No Current occupational status: employed Current occupation: Right Handed Cognitive needs: No Hearing needs: No Vision needs: No Questionnaire Thrive Questionnaire Date Thrive assessed: 07/09/22 AUDIT C Alcohol Use Questionnaire (AUDIT-C) 1. How often do you have a drink containing alcohol?: Never 3. How often do you have six or more drinks on one occasion?: Never Total Score: 0 MAL-7 AMB Questionnaire MAL-7 Date MAL - 7 assessed: 07/09/22 Source: Developed by Drs. Efren Torres, Tamy Rushing, Jerson Vaughan and colleagues, with an educational myriam from [employer]. Review of Systems Const All systems reviewed & are unremarkable except as noted in HPI and below Reports no additional complaints Eyes Reports no additional complaints ENT Reports no additional complaints Card Reports no additional complaints Resp Reports no additional complaints GI Reports no additional complaints Reports no additional complaints Musc Reports no additional complaints Physical exam (Primary Care) Vital Signs: Last Vital Signs Pulse 67 08/10/23 13:19 BP 128/84 08/10/23 13:19 Pulse Ox 97 08/10/23 13:19 Oxygen Delivery Method Room Air 08/10/23 13:19 BMI result Body Mass Index 30.4 Tobacco/Smoking Status: Tobacco use Status Tobacco use date assessed 08/10/23 08/10/23 13:27 Patient Tobacco Use Status Current someday Tobacco 08/10/23 13:18 Tobacco use type Cigarette 08/10/23 13:18 e-Cigarette/Vaping Use Never Used 08/10/23 13:18 Thrive Assessment: Date of Thrive Assessment Date Thrive assessed 07/09/22 08/10/23 13:18 Const General: no acute distress HENMT Head: Yes normal to inspection Face and sinus: Yes normal facial exam Mouth: Normal oral and palatal mucosa present Eyes General: appearance normal, both eyes and all related structures Neck Neck: Yes no lymphadenopathy and Yes supple Resp Effort & Inspection: normal respiratory effort Auscultation: clear to auscultation bilaterally Cardio Rhythm: regular rhythm Heart sounds: S1 normal heart sound present and S2 normal heart sound present GI Inspection: Yes normal to inspection Palpation (GI): Soft to palpation Percussion: Yes normal to percussion Auscultation: normal bowel sounds Assessment and Plan Assessment & Plan (1) Parkinsons disease: Comment: with frequent fluctuations and OFF periods Code(s): G20 - Parkinson's disease Plan: Follow-up with neurology (2) COPD (chronic obstructive pulmonary disease): Comment: declined inhalers Code(s): J44.9 - Chronic obstructive pulmonary disease, unspecified Plan: Continue Anoro (3) S/P percutaneous endoscopic gastrostomy (PEG) tube placement: Comment: For levodopa Code(s): Z93.1 - Gastrostomy status Plan: Follow-up with GI (4) Rotator cuff arthropathy of right shoulder: Code(s): M12.811 - Other specific arthropathies, not elsewhere classified, right shoulder Plan: Patient was advised to avoid taking narcotics and regular basis to prevent increase risk of fall Coding Level of Care Code Est Pt Level 4 (60475) Diagnoses Parkinsons disease G20 COPD (chronic obstructive pulmonary disease) J44.9 S/P percutaneous endoscopic gastrostomy (PEG) tube placement Z93.1 Rotator cuff arthropathy of right shoulder M12.811
[2023-08-10 13:19] VITALS: BP 128/84; PULSE 67; O2SAT 97; BMI 30.4
== END 2023-08-10 13:48 | disposition home or self-care (01) ==
PROVIDERS: PCP Internal Medicine; Visit Provider Internal Medicine
DX: J44.9 Chronic obstructive pulmonary disease, unspecified (principal); Z93.1 Gastrostomy status; G20.C Parkinsonism, unspecified; M12.811 Other specific arthropathies, not elsewhere classified, right shoulder
CPT/HCPCS: 99214

== ENCOUNTER 2023-09-23 11:47 | Outpatient (AMB) | payer MEDICARE, MEDICAID, SELFPAY ==
[2023-09-23 12:11] VITALS: BMI 30.4
--- NOTE | 2023-09-23 12:11 | A.OFFVIS_ITS ---
Vital Signs 09/23/23 12:11 Height 6 ft Weight 224 lb BMI 30.4 Intake Visit Reasons: New prob- b/l knee pain Intake Note: Ko is a 68 year old male who presents today for a new problem visit with complaints of bilateral knee pain. He is looking to have injections Allergies amlodipine Allergy (Unknown, Verified 08/10/23 13:26) pt does not know HPI HPI New prob- b/l knee pain: Details: Ko comes in with left knee pain. His Parkinsonism is getting worse and he is falling frequently. He has benefitted from injections in the past. [facility] Medical History Frequent falls Shoulder pain, left Arthritis Difficulty swallowing Neck pain Constipation Spondylosis of lumbar spine Complex regional pain syndrome of right upper extremity Encounter for screening for lung cancer Hyperlipidemia Annual physical exam Smoker COPD (chronic obstructive pulmonary disease) Pneumonia Axillary nerve palsy Acute bursitis of left shoulder Parkinson disease Family history of ischemic heart disease and other diseases of the circulatory system Pure hypercholesterolemia, unspecified Nonrheumatic aortic (valve) insufficiency Surgical History History of percutaneous endoscopic gastrostomy History of lumbar laminectomy Hx of umbilical hernia repair History of arthroscopy of shoulder History of total hip arthroplasty History of esophagogastroduodenoscopy (EGD) History of colonoscopy History of surgery Family History Father CVD (cardiovascular disease) Mother CVD (cardiovascular disease) Brother No problems noted. Brother Brain cancer Sister No problems noted. Sister MRSA (methicillin resistant Staphylococcus aureus) Daughter No problems noted. Social History Housing: House Are you a primary before and after school daycare worker to a significant other at home: No Do you presently have visiting nurse or other home services: No Alcohol intake: current Alcohol intake frequency: holidays/special occasions only Alcohol type: beer Patient Tobacco Use Status: Current someday Tobacco user Tobacco use type: Cigarette Cigarettes Per Day: 2 Years Smoked: 50 e-Cigarette/Vaping Use: Never Used Substance Use Type: Marijuana Advance Directives Date on File: 06/03/15 service: No Current occupational status: employed Current occupation: Right Handed Cognitive needs: No Hearing needs: No Vision needs: No Physical Exam Vital Signs: BMI result Body Mass Index 30.4 Const General: no acute distress, alert and awake Orientation/consciousness: patient oriented x3 HEENT Head: Yes normocephalic and Yes atraumatic Eyes EOM: EOMs intact bilaterally Resp Effort & Inspection: normal respiratory effort and able to speak in complete sentences Cardio Jugular venous distension: no JVD Skin General skin exam: turgor normal Rashes: no rashes Neuro General: patient oriented x3 Extrem Other: Left knee with medial joint line ttp. No effusion Psych Appearance: grossly normal Affect: normal affect Attitude: cooperative Office Procedures Joint Injection/Drain Joint Injection/Drain Details: Injected 1 mL of Decadron and 3 mL 1% lidocaine and 3 mL of 0.25% Marcaine. Site was prepped using aseptic technique. Patient tolerated the procedure well. Primary Site: left knee Approach Used: anterolateral Coding - Large joint Procedure code (CPT) selection complete Assessment & Plan Assessment & Plan (1) Parkinson's disease with dyskinesia, with fluctuations: Code(s): G20.B2 - Parkinson's disease with dyskinesia, with fluctuations Category: Medical Plan: This is worsening. He is using a walker. (2) Left knee pain: Code(s): M25.562 - Pain in left knee Category: Medical Plan: I injected his left knee. He has difficulty with ambulation 2/2 Parkinson's and falls frequently. Coding Level of Care Code Est Pt Level 4 (39763) Diagnoses Parkinson's disease with dyskinesia, with fluctuations G20.B2 Left knee pain M25.562 CPT Codes Coding - Large joint: - Large joint ([id number])
== END 2023-09-23 13:47 | disposition home or self-care (01) ==
PROVIDERS: PCP Internal Medicine; Visit Provider Orthopaedic Surgery
DX: M25.562 Pain in left knee (principal); G20.B2 Parkinson's disease with dyskinesia, with fluctuations
CPT/HCPCS: 20610; 99214

== ENCOUNTER → 2023-09-23 11:47 | Outpatient (BNVA) | payer MEDICARE, MEDICAID, SELFPAY | PROVIDERS: PCP Internal Medicine; Visit Provider Orthopaedic Surgery | DX: M25.562 Pain in left knee (principal); G20.B2 Parkinson's disease with dyskinesia, with fluctuations | CPT/HCPCS: 20610; 99212; J0665; J1100 ==

== ENCOUNTER 2023-11-16 11:08 | Outpatient (REF) | payer MEDICARE, MEDICAID, SELFPAY ==
--- NOTE | ~2023-11-16 | XR_ITS ---
EXAMINATION: XR LUMBOSACRAL SPINE CLINICAL INFORMATION: Fall from incline. COMPARISON: CT abdomen 10/03/2015, lumbar spine radiographs 05/02/2014, MR lumbar spine 04/18/2012 TECHNIQUE: Three views of the lumbosacral spine. FINDINGS: There is been progression of degenerative changes throughout the lumbar spine with increasing disc space narrowing, endplate sclerosis and osteophyte formation. Again seen is grade 2 anterolisthesis of L4 upon L5, increased when compared to the 05/02/20192014 radiographs from 5 mm to 15 mm. There is a new grade 1 retrolisthesis of L3 upon L4. No acute fractures are seen. Incidental note made of bilateral hip prostheses and a gastrostomy tube overlying the stomach. Vascular calcifications are seen. XR/XR lumbar spine 2-3V IMPRESSION: 1. No acute fractures are seen. 2. Progression of degenerative changes throughout the lumbar spine with increasing anterolisthesis of L4 upon L5 (previously grade 1, now grade 2) and new grade 1 retrolisthesis of L3 upon L4.
== END 2023-11-16 11:09 | disposition home or self-care (01) ==
LOC: HO.HOSX 11:08
PROVIDERS: PCP Internal Medicine; Visit Provider Physical Medicine & Rehabilitation
DX: M54.50 Low back pain, unspecified (principal); R26.2 Difficulty in walking, not elsewhere classified; G20.B2 Parkinson's disease with dyskinesia, with fluctuations; M43.16 Spondylolisthesis, lumbar region; G89.11 Acute pain due to trauma; Z91.81 History of falling
CPT/HCPCS: 72100; 99202

== ENCOUNTER 2023-11-16 11:08 | Outpatient (AMB) | payer MEDICARE, MEDICAID, SELFPAY ==
--- NOTE | 2023-11-16 11:11 | MHC.OFFVIS ---
Intake Visit Reasons: New Pt - Back Pain Intake Note: Patient reports that he was going outside and walked down a ramp but he didn't take his walker, so he lost his balance. He ran into the golf cart when he fell, he is unsure how he fell but his back has been significantly painful since the fall. He feels weakness in the right leg and has a tightness/pain across the entire lower back. The pain is making him even less steady on his feet. Allergies amlodipine Allergy (Unknown, Verified 08/10/23 13:26) pt does not know HPI Comments Details: 9 days ago, fell on his driveway, loss balance, ran down the hill into a golf cart (golf cart used for transportation around his property). Back may have been twisted. Did not go to ER. Pain across the back, feels weak . No radicular pain on legs. No new numbness on feet. 9/10 of back pain. 6/10 with rest/sitting. Home PT started after the fall. Parkinsons, managed by Dr. Floyd. No spasticity, not on spasticiity medications. Frequent falls, almost daily. Still independent, with walker for outdoor, WC for outdoor. Has a PEG for medication. Reviewed notes from PCP, Neurology, recently seen by Orthopedics for knee pain, seen in ER June/2023. [facility] Medical History Frequent falls Shoulder pain, left Arthritis Difficulty swallowing Neck pain Constipation Spondylosis of lumbar spine Complex regional pain syndrome of right upper extremity Encounter for screening for lung cancer Hyperlipidemia Annual physical exam Smoker COPD (chronic obstructive pulmonary disease) Pneumonia Axillary nerve palsy Acute bursitis of left shoulder Parkinson disease Family history of ischemic heart disease and other diseases of the circulatory system Pure hypercholesterolemia, unspecified Nonrheumatic aortic (valve) insufficiency Surgical History History of percutaneous endoscopic gastrostomy History of lumbar laminectomy Hx of umbilical hernia repair History of arthroscopy of shoulder History of total hip arthroplasty History of esophagogastroduodenoscopy (EGD) History of colonoscopy History of surgery Family History Father CVD (cardiovascular disease) Mother CVD (cardiovascular disease) Brother No problems noted. Brother Brain cancer Sister No problems noted. Sister MRSA (methicillin resistant Staphylococcus aureus) Daughter No problems noted. Social History Housing: House Are you a primary manager intensive care to a significant other at home: No Do you presently have visiting nurse or other home services: No Alcohol intake: current Alcohol intake frequency: holidays/special occasions only Alcohol type: beer Patient Tobacco Use Status: Current someday Tobacco user Tobacco use type: Cigarette Cigarettes Per Day: 2 Years Smoked: 50 e-Cigarette/Vaping Use: Never Used Substance Use Type: Marijuana Advance Directives Date on File: 06/03/15 service: No Current occupational status: employed Current occupation: Right Handed Cognitive needs: No Hearing needs: No Vision needs: No Review of Systems Const All systems reviewed & are unremarkable except as noted in HPI and below Physical Exam Constitutional: Patient appears to be in no acute distress, well nourished and well developed. Patient was appropriately conversant and oriented. Good historian. MSK: No specific abnormalities found on inspection of the spine and all extremities. Tender L3 or L2 spinous processes? SI joint nontender. Tends to stand and walk on toes. Scissoring gait. Unstable. Neurological: Individual muscle testing still strong, still 5/5 on dorsiflexion, knee extension and hip flexion. But the leg weakness is more evident as soon as he stands or walks. No increased tone notable. Negative Corry sign. No clonus. Results Reviewed Results Reviewed: I reviewed records from the following: As above Assessment & Plan Assessment & Plan (1) Fall (on)(from) incline, initial encounter: Code(s): W10.2XXA - Fall (on)(from) incline, initial encounter Category: Medical (2) Acute back pain: Code(s): M54.9 - Dorsalgia, unspecified Category: Medical Qualifiers: Back pain location: low back pain Back pain laterality: midline Sciatica presence: without sciatica Qualified Code(s): M54.50 - Low back pain, unspecified (3) Difficulty walking: Code(s): R26.2 - Difficulty in walking, not elsewhere classified Category: Medical (4) Parkinson's disease with dyskinesia, with fluctuations: Code(s): G20.B2 - Parkinson's disease with dyskinesia, with fluctuations Category: Medical (5) Spondylolisthesis, lumbar region: Code(s): M43.16 - Spondylolisthesis, lumbar region Category: Medical Plan History of Parkinson's, with unstable gait and frequent falls. [place] 9 days ago. Lower back pain, nonradicular. Rule out vertebral fracture. Getting x-rays today. Reviewed lumbar films-no vertebral fracture seen, spondylolisthesis L4-5 (question lumbarization of sacralization of L5?). Await final reading. Patient had undergone adequate conservative management including PT without improvement of condition. It would be reasonable to obtain further imaging such as MRI. An MRI would help rule out any serious condition, guide treatment and assess prognosis for recovery. Specifically ruling out nerve compression, severity of spondylolisthesis, spinal stenosis. For now continue home PT. Fall prevention. Lidoderm patches as needed. Assessment and plan discussed with patient, and patient was agreeable. All questions were answered thoroughly. Follow up after MRI. Malina Roberts MD, DENICE Board Certified, [place] [employer] and Rehabilitation (ABPMR) Board Certified, [place] Board [employer] Electrodiagnostic [employer] (ABEM) Orders: Orders MR lumbar spine wo con Today G89.11 - Acute pain due to trauma, M43.16 - Spondylolisthesis, lumbar region, M54.50 - Low back pain, unspecified, W10.2XXA - Fall (on)(from) incline, initial encounter XR lumbar spine 2-3V Today M54.9 - Dorsalgia, unspecified, W10.2XXA - Fall (on)(from) incline, initial encounter Coding Level of Care Code New Pt Level 4 (98505) Diagnoses Fall (on)(from) incline, initial encounter W10.2XXA Acute midline low back pain without sciatica M54.50 Back pain location: low back pain Back pain laterality: midline Sciatica presence: without sciatica Difficulty walking R26.2 Parkinson's disease with dyskinesia, with fluctuations G20.B2 Spondylolisthesis, lumbar region M43.16
== END 2023-11-16 11:49 | disposition home or self-care (01) ==
PROVIDERS: PCP Internal Medicine; Visit Provider Physical Medicine & Rehabilitation
DX: M54.50 Low back pain, unspecified (principal); M43.16 Spondylolisthesis, lumbar region; W10.2XXA Fall (on)(from) incline, initial encounter; R26.2 Difficulty in walking, not elsewhere classified; G20.B2 Parkinson's disease with dyskinesia, with fluctuations
CPT/HCPCS: 99203

== ENCOUNTER 2023-12-17 07:48 | Outpatient (REF) | payer MEDICARE, MEDICAID, SELFPAY ==
--- NOTE | ~2023-12-17 | MR_ITS ---
EXAMINATION: MR LUMBAR SPINE WITHOUT CONTRAST CLINICAL INFORMATION: L4-L5 spondylolisthesis. Nerve compression. Spinal stenosis. COMPARISON: Lumbar spine radiographs from 11/16/2023. Lumbar spine MRI from 04/18/2012. TECHNIQUE: MRI of the lumbar spine was obtained using routine sequences without contrast. FINDINGS: Minimal right convex curvature of the lumbar spine. Moderate retrolisthesis of L1 on L2 that appears associated with a fracture of the anterior inferior corner of L1. Mild degenerative retrolisthesis of L3 on L4. Degenerative grade 1 anterolisthesis of L4 on L5. Advanced degenerative disc disease at T11-T12, L1-L2, and L5-S1. Moderate degenerative disc disease from L2-L5. Associated mixed Modic type discogenic endplate changes including Modic type I discogenic edema from L1-L2 and L5-S1. Mild marrow edema in the anterior inferior corner of L1. Mild marrow edema within the posterior elements of L5-S1 consistent with degenerative stress reaction. The vertebral body heights are largely maintained. The conus medullaris terminates at the level of L1. The distal spinal cord is normal in appearance. Changes of bilateral hip arthroplasties. Mild edema within the posterior paraspinal musculature at the level of L1-L2. Moderate subcutaneous edema within the posterior soft tissues of the back from L1 to S3. No additional significant abnormalities of the paraspinal musculature. Limited evaluation of the intra-abdominal structures without significant abnormalities. The abdominal aorta is of normal contour and caliber. AXIAL SPINAL LEVELS: L1-L2: Moderate diffuse disc bulge with posterior osseous ridging. There is severe bilateral facet joint arthropathy. There is severe bilateral neural foraminal stenosis. There is moderate spinal canal stenosis. L2-L3: Normal annular contour. There is moderate right and mild left facet joint arthropathy. There is mild bilateral neural foraminal stenosis. There is no spinal canal stenosis. L3-L4: Moderate diffuse disc bulge with posterior osseous ridging. There is moderate to severe bilateral facet joint arthropathy. There is moderate to severe bilateral neural foraminal stenosis. There is stenosis of the subarticular zones with moderate spinal canal stenosis centrally. L4-L5: Prominent diffuse disc bulge just been covering from anterolisthesis. There is severe bilateral facet joint arthropathy. There is moderate bilateral neural foraminal stenosis. There is stenosis of the subarticular zones with moderate spinal canal stenosis centrally. L5-S1: Moderate diffuse disc bulge with posterior osseous ridging. There is severe right and moderate left facet joint arthropathy. There is severe right and mild left neural foraminal stenosis. There is stenosis of the right worse than left subarticular zones with no overt spinal canal stenosis centrally. MR/MR lumbar spine wo con IMPRESSION: There appears to be a fracture of the anterior inferior corner of L1 with mild residual marrow edema. Moderate retrolisthesis of L1 on L2. 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 Most notably, there are moderate spinal canal stenoses at L1-L2, L3-L4, and L4-L5. Stenoses of the subarticular zones and moderate to severe neural foraminal stenoses at L1-L2 and from L3-S1. Electronically signed by: Chepe Ernst DO 12/24/2023 08:23 PM EDT
== END 2023-12-17 07:49 | disposition home or self-care (01) ==
LOC: HO.MRI 07:48
PROVIDERS: PCP Internal Medicine; Visit Provider Physical Medicine & Rehabilitation
DX: M54.50 Low back pain, unspecified (principal); M54.16 Radiculopathy, lumbar region; G89.11 Acute pain due to trauma; W10.2XXD Fall (on)(from) incline, subsequent encounter
CPT/HCPCS: 72148

== ENCOUNTER 2023-12-17 12:33 | Outpatient (AMB) | payer MEDICARE, MEDICAID, SELFPAY ==
--- NOTE | 2023-12-17 12:37 | A.OFFPC_ITS ---
Vital Signs 12/17/23 12:39 Height 6 ft Weight 201 lb BMI 27.3 BP 130/80 Blood Pressure Location Lt brachial Position Sitting Pulse 73 Pulse Source Pulse Oximeter Pulse Oximetry (%) 95 Oxygen Delivery Method Room Air Intake Visit Reasons: shortness of breath - see comments Intake Note: Patient here for SOB Allergies amlodipine Allergy (Unknown, Verified 12/17/23 12:40) pt does not know Medication List - Last Reconciled 12/17/23 by Elisabet Ochoa MD apomorphine (APOKYN) 0.6 mL subcut Q2H PRN 30 days MDD 3 doses carbidopa-levodopa 25-100 mg 2 tabs up to 5 x's per day orally PRN; 30 days carbidopa-levodopa 25-100 mg ER 2 tabs PO BEDTIME carbidopa-levodopa 4.63-20 mg/mL (Duopa) Morning dose range 5-10 ml, Basal dose 3.0-3.5 ml x's 16 hrs/day, w/ bolus dose 2 ml q 2 hr prn off-time.; Lock level 1 4 weeks carbidopa-levodopa 48.75-195 mg ER (Rytary) 1 cap orally BID; divide evenly over waking hours 30 days chair, wheel (Wheel chair) As directed clonazepam 2.5 mg (2.5 x 1 mg) PO BEDTIME 30 days commode (bedside commode) As directed food supplemt, lactose-reduced (Ensure oral liquid) 1 ea PO TID furosemide 20 mg PO DAILY Grab bar 18 inch grab bar [Hospital bed As directed] ipratropium-albuterol 0.5 mg-3 mg(2.5 mg base)/3 mL 3 mL inhalation Q6-8H PRN lidocaine 5% (Lidoderm) 1 patch topical DAILY methylcellulose (laxative) (Citrucel) 500 mg PO DAILY miscellaneous medical supply Raised toilet seat naloxone 4 mg/actuation (Narcan) 4 mg intranasal Q2M PRN nebulizers Nebulizer with supplies onabotulinumtoxinA (Botox) 100 units IM ONCE 12 weeks oxycodone-acetaminophen 5-325 mg 1 tab PO Q8H PRN 30 days pantoprazole 40 mg PO DAILY pramipexole 0.5 mg (1/2 x 1 mg) PO QID 30 days quetiapine 25 mg PO QHS 30 days sennosides (senna) 17.2 mg (2 x 8.6 mg) PO BEDTIME PRN Shower Chair As directed Transfer Bench Tub transfer bench umeclidinium-vilanterol 62.5-25 mcg/actuation (Anoro Ellipta) 1 ea inhalation DAILY walker 4-wheeled folding seated walker with brakes Tobacco use date assessed: 08/10/23 Fall risk assessment: 2 + Falls in past year Last assessed Fall Risk: 12/17/23 Dental Screening Dental Screen Date: 08/10/23 HPI shortness of breath - see comments HPI Details Pt presents for f/u hospitalization for aspiration pneumonia at [facility] and frequent falls due to Parkinson disease. Patient has been eating small frequent meals and follows up with neurology for Parkinson's disease. He reports progressive worsening of his balance and has been using walker. Patient has been using DuoNeb on and off for occasionally cough and shortness or breath. He has been using Anoro daily. [facility] Medical History (Updated 12/17/23 @ 13:57 by Elisabet Ochoa MD) Frequent falls Shoulder pain, left Arthritis Difficulty swallowing Neck pain Constipation Spondylosis of lumbar spine Complex regional pain syndrome of right upper extremity Encounter for screening for lung cancer Hyperlipidemia Annual physical exam Smoker COPD (chronic obstructive pulmonary disease) Pneumonia Axillary nerve palsy Acute bursitis of left shoulder Family history of ischemic heart disease and other diseases of the circulatory system Pure hypercholesterolemia, unspecified Nonrheumatic aortic (valve) insufficiency Surgical History History of percutaneous endoscopic gastrostomy History of lumbar laminectomy Hx of umbilical hernia repair History of arthroscopy of shoulder History of total hip arthroplasty History of esophagogastroduodenoscopy (EGD) History of colonoscopy History of surgery Family History Father CVD (cardiovascular disease) Mother CVD (cardiovascular disease) Brother No problems noted. Brother Brain cancer Sister No problems noted. Sister MRSA (methicillin resistant Staphylococcus aureus) Daughter No problems noted. Social History Housing: House Are you a primary vocational childcare teacher to a significant other at home: No Do you presently have visiting nurse or other home services: No Alcohol intake: current Alcohol intake frequency: holidays/special occasions only Alcohol type: beer Patient Tobacco Use Status: Current someday Tobacco user Tobacco use type: Cigarette Cigarettes Per Day: 2 Years Smoked: 50 e-Cigarette/Vaping Use: Never Used Substance Use Type: Marijuana Advance Directives Date on File: 06/03/15 service: No Current occupational status: employed Current occupation: Right Handed Cognitive needs: No Hearing needs: No Vision needs: No Questionnaire Thrive Questionnaire Date Thrive assessed: 07/09/22 MAL-7 AMB Questionnaire MAL-7 Date MAL - 7 assessed: 07/09/22 Source: Developed by Drs. Efren Torres, Tamy Rushnig, Jerson Vaughan and colleagues, with an educational myriam from [employer]. Review of Systems Const All systems reviewed & are unremarkable except as noted in HPI and below ENT Reports no additional complaints Card Reports no additional complaints Resp Reports no additional complaints GI Reports no additional complaints Reports no additional complaints Physical exam (Primary Care) Vital Signs: Last Vital Signs Pulse 73 12/17/23 12:39 BP 130/80 12/17/23 12:39 Pulse Ox 95 12/17/23 12:39 Oxygen Delivery Method Room Air 12/17/23 12:39 BMI result Body Mass Index 27.3 Tobacco/Smoking Status: Tobacco use Status Tobacco use date assessed 08/10/23 12/17/23 12:38 Patient Tobacco Use Status Current someday Tobacco 12/17/23 12:38 Tobacco use type Cigarette 12/17/23 12:38 e-Cigarette/Vaping Use Never Used 12/17/23 12:38 Thrive Assessment: Date of Thrive Assessment Date Thrive assessed 07/09/22 12/17/23 12:38 Const General: no acute distress Neck Neck: Yes supple Resp Effort & Inspection: normal respiratory effort Auscultation: diminished lung sounds Cardio Rhythm: regular rhythm Heart sounds: S1 normal heart sound present and S2 normal heart sound present GI Inspection: Yes normal to inspection Palpation (GI): Soft to palpation Assessment and Plan Assessment & Plan (1) Parkinson's disease with dyskinesia, with fluctuations: Code(s): G20.B2 - Parkinson's disease with dyskinesia, with fluctuations Plan: Continue current medications follow-up with Neurology for prevention discussed with the patient. He was advised to use walker all the time (2) COPD (chronic obstructive pulmonary disease): Code(s): J44.9 - Chronic obstructive pulmonary disease, unspecified Plan: Continue Breo Ellipta and increase DuoNeb to bid (3) Aspiration pneumonia: Comment: Hospitalization at [facility] 08/2023 Code(s): J69.0 - Pneumonitis due to inhalation of food and vomit Plan: Aspiration prevention discussed with the patient. Medications: New albuterol sulfate 90 mcg/actuation (Ventolin HFA) 2 puffs inhalation Q6H PRN 6.7 grams 4RF shortness of breath or wheezing Coding Level of Care Code Est Pt Level 4 (07003) Diagnoses Parkinson's disease with dyskinesia, with fluctuations G20.B2 COPD (chronic obstructive pulmonary disease) J44.9 Aspiration pneumonia J69.0
[2023-12-17 12:39] VITALS: BP 130/80; PULSE 73; O2SAT 95; BMI 27.3
== END 2023-12-17 13:58 | disposition home or self-care (01) ==
PROVIDERS: PCP Internal Medicine; Visit Provider Internal Medicine
DX: G20.B2 Parkinson's disease with dyskinesia, with fluctuations (principal); J44.9 Chronic obstructive pulmonary disease, unspecified; J69.0 Pneumonitis due to inhalation of food and vomit
CPT/HCPCS: 99214

== ENCOUNTER 2023-12-23 15:24 | Outpatient (AMB) | payer MEDICARE, MEDICAID, SELFPAY ==
--- NOTE | 2023-12-23 15:41 | MHC.OFFVIS ---
Vital Signs 12/23/23 15:42 12/23/23 15:48 12/23/23 15:48 BP 116/86 96/80 100/90 H Blood Pressure Location Lt brachial Lt brachial Lt brachial Position Supine Sitting Standing Pulse 69 69 71 Pulse Source Pulse Oximeter Pulse Oximeter Pulse Oximeter Intake Visit Reasons: Follow up Intake Note: Pt presents tot he office for orthostatic BP. 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 Required: No Allergies amlodipine Allergy (Unknown, Verified 12/23/23 15:42) pt does not know Medication List - Last Reconciled 12/23/23 by VIOLETTA Toledo albuterol sulfate 90 mcg/actuation (Ventolin HFA) 2 puffs inhalation Q6H PRN apomorphine (APOKYN) 0.6 mL subcut Q2H PRN 30 days MDD 3 doses carbidopa-levodopa 25-100 mg 2 tabs up to 5 x's per day orally PRN; 30 days carbidopa-levodopa 25-100 mg ER 2 tabs PO BEDTIME carbidopa-levodopa 4.63-20 mg/mL (Duopa) Morning dose range 5-10 ml, Basal dose 3.0-3.5 ml x's 16 hrs/day, w/ bolus dose 2 ml q 2 hr prn off-time.; Lock level 1 4 weeks carbidopa-levodopa 48.75-195 mg ER (Rytary) 1 cap orally BID; divide evenly over waking hours 30 days chair, wheel (Wheel chair) As directed clonazepam 2.5 mg (2.5 x 1 mg) PO BEDTIME 30 days commode (bedside commode) As directed food supplemt, lactose-reduced (Ensure oral liquid) 1 ea PO TID furosemide 20 mg PO DAILY Grab bar 18 inch grab bar [Hospital bed As directed] ipratropium-albuterol 0.5 mg-3 mg(2.5 mg base)/3 mL 3 mL inhalation Q6-8H PRN lidocaine 5% (Lidoderm) 1 patch topical DAILY methylcellulose (laxative) (Citrucel) 500 mg PO DAILY midodrine 2.5 mg PO BID 30 days miscellaneous medical supply Raised toilet seat naloxone 4 mg/actuation (Narcan) 4 mg intranasal Q2M PRN nebulizers Nebulizer with supplies onabotulinumtoxinA (Botox) 100 units IM ONCE 12 weeks oxycodone-acetaminophen 5-325 mg 1 tab PO Q8H PRN 30 days pantoprazole 40 mg PO DAILY pramipexole 0.5 mg (1/2 x 1 mg) PO QID 30 days quetiapine 25 mg PO QHS 30 days sennosides (senna) 17.2 mg (2 x 8.6 mg) PO BEDTIME PRN Shower Chair As directed Transfer Bench Tub transfer bench umeclidinium-vilanterol 62.5-25 mcg/actuation (Anoro Ellipta) 1 ea inhalation DAILY walker 4-wheeled folding seated walker with brakes HPI Comments Details: 68-yr-old male presents for urgent f/u visit as he has been haiving increrased falls. Pt has had mx ER vals and hospitl;izations r/t resp s/s, PNA, falls. Pt reports he has been having increased falls, especially when he takes more CD-LD. He states he stands and just falls. He denies any falls a/w LOC, or preceding lightheadedness or post-fall confusion/fatigue. He has mx skin tears due to these falls or hitting his arms on doors/[place]. He does have a walker, but can still fall when using his walker. Pt is holding his Duopa morning dose. He is using the Duopa basal dose and prn dose 4-5 x's per day. He is not using Apokyn- as this was causing similar falls. He had stopped his Pramipexole, but the ER gave this back to him at 0.25mg QID. States if he skips it, he does not miss it, but occasionally if he feels he needs it, it helps. Pt states he is not using nocturnal Rytary or CD-LD. He states he is not on any BP med or furosemide. He has also been having increased resp diff r/t COPD and aspiration PNAs. F/b PCP. He has been having some difficulty swallowing at times. 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 [facility] Medical History Frequent falls Shoulder pain, left Arthritis Difficulty swallowing Neck pain Constipation Spondylosis of lumbar spine Complex regional pain syndrome of right upper extremity Encounter for screening for lung cancer Hyperlipidemia Annual physical exam Smoker COPD (chronic obstructive pulmonary disease) Pneumonia Axillary nerve palsy Acute bursitis of left shoulder Family history of ischemic heart disease and other diseases of the circulatory system Pure hypercholesterolemia, unspecified Nonrheumatic aortic (valve) insufficiency Surgical History History of percutaneous endoscopic gastrostomy History of lumbar laminectomy Hx of umbilical hernia repair History of arthroscopy of shoulder History of total hip arthroplasty History of esophagogastroduodenoscopy (EGD) History of colonoscopy History of surgery Family History Father CVD (cardiovascular disease) Mother CVD (cardiovascular disease) Brother No problems noted. Brother Brain cancer Sister No problems noted. Sister MRSA (methicillin resistant Staphylococcus aureus) Daughter No problems noted. Social History Housing: House Are you a primary child care centre director to a significant other at home: No Do you presently have visiting nurse or other home services: No Alcohol intake: current Alcohol intake frequency: holidays/special occasions only Alcohol type: beer Patient Tobacco Use Status: Current someday Tobacco user Tobacco use type: Cigarette Cigarettes Per Day: 2 Years Smoked: 50 e-Cigarette/Vaping Use: Never Used Substance Use Type: Marijuana Advance Directives Date on File: 06/03/15 service: No Current occupational status: employed Current occupation: Right Handed Cognitive needs: No Hearing needs: No Vision needs: No Review of Systems Const All systems reviewed & are unremarkable except as noted in HPI and below Physical Exam Vital Signs: Last Vital Signs Pulse 71 12/23/23 15:48 BP 100/90 H 12/23/23 15:48 Const General: cooperative and no acute distress Resp Effort & Inspection: normal respiratory effort and able to speak in complete sentences Skin Other: Multiple skin tears on both arms and legs- in various states of healing. Neuro Other: General: A&O x's 3. Orthostatic hypo Expression: Decreased Voice: Soft Tremor: None Dyskinesia: none FFM: Decreased Foot taps: Decreased Gait: Slow to stand, stooped, prone to cross feet, short steps Psych: Pleasant affect Assessment & Plan Assessment & Plan (1) Parkinson's disease with dyskinesia, with fluctuations: Code(s): G20.B2 - Parkinson's disease with dyskinesia, with fluctuations Category: Medical (2) Orthostatic hypotension due to Parkinson's disease: Code(s): G90.3 - Multi-system degeneration of the autonomic nervous system Category: Medical (3) S/P percutaneous endoscopic gastrostomy (PEG) tube placement: Comment: For levodopa Code(s): Z93.1 - Gastrostomy status Category: Surgical Plan Reviewed orthostatic BP/HR results- orthostatic hypotension w/ compensatory HR elevation- resukts c/w neurogenic OH. I suspect this is likely causing pt's mx falls. Discussed in detail that neurogenic OH can be a symptom of PD but also may be exacerbated by dopaminergic tx. Tx includes BP supportive tx's- such as midodrine, increasing fluids. Start Midodrine 2.5 mg at 6am, 11am, 4pm, last castellanos 4hrs before bedtime. Check BP in am when in bed, hold midodrine for BP > 160/90, call us if BP 180/100. Ensure increased fluid intake including electrolyte replacement beverages. Stand slowly. Continue Duopa 100mg/ml infusion via peg-J Morning Dose: 5.9 ml (w/ range 9.5-10.5)- may hold for now, consider adjusting after pt adjusts to Midodrine trial. Continuous dose: 3.2ml/hr (w/ range 3-3.5) x's 16 hrs/day Bolus dose 2 ml q 2 hrs Lock level: 2? Pt can continue to use his Rytary 23.75-95mg samples prn off-time. Hold Pramipexole. Hold Apokyn 0.25-0.4ml q 2 hrs prn- max 1.2 ml per day. Clonazepam 2.5mg qhs prn for sleep- if falls persist, consider alternate as benzodiazepines may increase fall risk as well. Previous tx trials- Rasagiline, Selegiline- no effective. CD-LD ER 25-100mg- ineffective. Quetiapine- not tolerated. Contraindications/cautions- avoid increased doses of dopamine agonists d/t compulsiveness and OH s/s Will refer for FEDERAL JUDICIAL LAW CLERK eval & tx for dysphagia. Continue to use walker. Will f/u on w/c order- through [employer] [facility]. Addendum: Pt called 12/26/23 w/ report that Midodrine was not working. Reviewed what he meant by not working . States yesterday, while at golf club, he felt dizzy and could not play golf. He had taken his first doses of midodrine- 2.5mg the evening before at 4pm and that am at 6am. He went to the golf club at 9am. Reviewed reasonable expectations of Midodrine- explained that we need more time to understand effect and tolerance, especially in terms of BP control of reducing daytime OH s/s w/o inducing nocturnal HTN. Pt verbalizes understanding. ? Orders: Referrals Speech and Hearing Referral G20.B2 - Parkinson's disease with dyskinesia, with fluctuations, J69.0 - Pneumonitis due to inhalation of food and vomit, Z93.1 - Gastrostomy status Medications: New midodrine do not give last dose of day after 6PM or within 4 hrs of bedtime 2.5 mg PO BID 30 days 60 tabs 1RF Refilled clonazepam 2.5 mg (2.5 x 1 mg) PO BEDTIME 30 days 75 tabs 2RF clonazepam 2.5 mg (2.5 x 1 mg) PO BEDTIME 30 days 75 tabs 0RF Coding Level of Care Code Est Pt Level 4 (42052) Diagnoses Parkinson's disease with dyskinesia, with fluctuations G20.B2 Orthostatic hypotension due to Parkinson's disease G90.3 S/P percutaneous endoscopic gastrostomy (PEG) tube placement Z93.1
[2023-12-23 15:42] VITALS: BP 116/86; PULSE 69
[2023-12-23 15:48] VITALS: BP 100/90; BP 96/80; PULSE 69; PULSE 71
== END 2023-12-23 16:22 | disposition home or self-care (01) ==
PROVIDERS: PCP Internal Medicine; Visit Provider Nurse Practitioner Family
DX: G20.B2 Parkinson's disease with dyskinesia, with fluctuations (principal); G90.3 Multi-system degeneration of the autonomic nervous system; Z93.1 Gastrostomy status
CPT/HCPCS: 99214

== ENCOUNTER → 2023-12-23 15:24 | Outpatient (BNVA) | payer MEDICARE, MEDICAID, SELFPAY | PROVIDERS: PCP Internal Medicine; Visit Provider Nurse Practitioner Family | DX: G20.B2 Parkinson's disease with dyskinesia, with fluctuations (principal); R29.6 Repeated falls; G90.3 Multi-system degeneration of the autonomic nervous system; Z93.1 Gastrostomy status | CPT/HCPCS: 99212 ==

== ENCOUNTER 2024-02-09 12:55 | Outpatient (AMB) | payer MEDICARE, MEDICAID, SELFPAY ==
--- NOTE | 2024-02-09 12:56 | A.OFFVIS_ITS ---
Vital Signs 02/09/24 12:57 Height 6 ft Weight 200 lb BMI 27.1 BP 112/78 Blood Pressure Location Rt brachial Position Sitting Intake Visit Reasons: Follow up Intake Note: Patient presents for follow up.patient has no concerns Allergies amlodipine Allergy (Unknown, Verified 02/09/24 12:59) pt does not know Medication List - Last Reconciled 02/09/24 by VIOLETTA Toledo albuterol sulfate 90 mcg/actuation (Ventolin HFA) 2 puffs inhalation Q6H PRN apomorphine (APOKYN) 0.6 mL subcut Q2H PRN 30 days MDD 3 doses blood pressure test kit-medium As directed carbidopa-levodopa 25-100 mg 2 tabs up to 5 x's per day orally PRN; 30 days carbidopa-levodopa 25-100 mg ER 2 tabs PO BEDTIME carbidopa-levodopa 4.63-20 mg/mL (Duopa) Morning dose range 5-10 ml, Basal dose 3.0-3.5 ml x's 16 hrs/day, w/ bolus dose 2 ml q 2 hr prn off-time.; Lock level 1 4 weeks carbidopa-levodopa 48.75-195 mg ER (Rytary) 1 cap orally BID; divide evenly over waking hours 30 days chair, wheel (Wheel chair) As directed clonazepam 2.5 mg (2.5 x 1 mg) PO BEDTIME 30 days commode (bedside commode) As directed food supplemt, lactose-reduced (Ensure oral liquid) 1 ea PO TID furosemide 20 mg PO DAILY Grab bar 18 inch grab bar [Hospital bed As directed] ipratropium-albuterol 0.5 mg-3 mg(2.5 mg base)/3 mL 3 mL inhalation Q6-8H PRN lidocaine 5% (Lidoderm) 1 patch topical DAILY methylcellulose (laxative) (Citrucel) 500 mg PO DAILY midodrine 2.5 mg PO BID 30 days miscellaneous medical supply Raised toilet seat naloxone 4 mg/actuation (Narcan) 4 mg intranasal Q2M PRN nebulizers Nebulizer with supplies onabotulinumtoxinA (Botox) 100 units IM ONCE 12 weeks oxycodone-acetaminophen 5-325 mg 1 tab PO Q8H PRN 30 days pantoprazole 40 mg PO DAILY pramipexole 0.5 mg (1/2 x 1 mg) PO BID PRN 30 days quetiapine 25 mg PO QHS 30 days sennosides (senna) 17.2 mg (2 x 8.6 mg) PO BEDTIME PRN Shower Chair As directed Transfer Bench Tub transfer bench umeclidinium-vilanterol 62.5-25 mcg/actuation (Anoro Ellipta) 1 ea inhalation DAILY walker 4-wheeled folding seated walker with brakes HPI Comments Details: 68-yr-old male presents for urgent f/u visit following recent hospitalization. Pt reports he had another hospitalization at [facility]- pt reports he had gotten OOB around 4am, fell though ot does not recall fall or getting OBB or next few days. Dtr found pt after hearing his foot tapping on the door mx times- he appeared to be convulsing. He had positive head strike. He was brought to [facility] ER. Head Ct- unremarkable, per dtr. Was admitted, tx'd also for PNA vs COPD exacerbation. Pt had agitation and hallucinations and delusions- which are atypical for him. this was attributed to the steoid tx. His Peg-J tube was accidentally dislodged and was replaced while admitted. Once he stabilized, was d/c'd after 6 days. 2 days post-discharge, he returned to [facility] Er w/ SOB and was tx'd for COPD exacerbation. Pt has since returned home. Pt is using his walker. He tried but stopped Midodrine- as it made him feel worse. He is not taking the Apokyn- as this was causing him to fall immediately after taking it. He denies any recent orthostatic lightheadedness, however he is still falling. He is using his Duopa and Pramipexole 0.5mg 3-4 x's a day. He was supposed to stop Pramipexole after the last visit, however states he often feels like he needs the pramipexole. He is not using the morning dose of the Duopa- now using just the allowed extra bolus doses. He states he needs more Peg-J tube avelino tree adapters- had to go to [facility] to get a replacement after the hospitalization. The other day, he was golfing, and took an extra CD-LD 1.5 tabs- then he just fell and fell, could not get back up. He states he rarely takes extra CD-LD. Yesterday, he did golf, and had no falls- but did not take the CD-LD. [facility] Medical History (Updated 02/09/24 @ 13:28 by VIOLETTA Toledo) Agitation Hallucination Frequent falls Shoulder pain, left Arthritis Difficulty swallowing Neck pain Constipation Spondylosis of lumbar spine Complex regional pain syndrome of right upper extremity Encounter for screening for lung cancer Hyperlipidemia Annual physical exam Smoker COPD (chronic obstructive pulmonary disease) Pneumonia Axillary nerve palsy Acute bursitis of left shoulder Family history of ischemic heart disease and other diseases of the circulatory system Pure hypercholesterolemia, unspecified Nonrheumatic aortic (valve) insufficiency Surgical History History of percutaneous endoscopic gastrostomy History of lumbar laminectomy Hx of umbilical hernia repair History of arthroscopy of shoulder History of total hip arthroplasty History of esophagogastroduodenoscopy (EGD) History of colonoscopy History of surgery Family History Father CVD (cardiovascular disease) Mother CVD (cardiovascular disease) Brother No problems noted. Brother Brain cancer Sister No problems noted. Sister MRSA (methicillin resistant Staphylococcus aureus) Daughter No problems noted. Social History Housing: House Are you a primary emergency care tech to a significant other at home: No Do you presently have visiting nurse or other home services: No Alcohol intake: current Alcohol intake frequency: holidays/special occasions only Alcohol type: beer Patient Tobacco Use Status: Current someday Tobacco user Tobacco use type: Cigarette Cigarettes Per Day: 2 Years Smoked: 50 e-Cigarette/Vaping Use: Never Used Substance Use Type: Marijuana Advance Directives Date on File: 06/03/15 service: No Current occupational status: employed Current occupation: Right Handed Cognitive needs: No Hearing needs: No Vision needs: No Physical Exam Vital Signs: Last Vital Signs BP 112/78 02/09/24 12:57 BMI result Body Mass Index 27.1 Const General: cooperative and no acute distress Resp Effort & Inspection: normal respiratory effort and able to speak in complete sentences Skin Other: Multiple skin tears on both arms and legs- in various states of healing. Neuro Other: General: A&O x's 3. Expression: Decreased Voice: Soft Tremor: None Dyskinesia: mile LE dyskinesia FFM: Decreased Foot taps: Decreased Gait: Slow to stand, stooped, prone to cross feet, short steps, gait better w/ walker. Psych: Pleasant affect Assessment & Plan Assessment & Plan (1) Parkinson's disease with dyskinesia, with fluctuations: Code(s): G20.B2 - Parkinson's disease with dyskinesia, with fluctuations Category: Medical (2) COPD (chronic obstructive pulmonary disease): Code(s): J44.9 - Chronic obstructive pulmonary disease, unspecified Category: Medical (3) SOB (shortness of breath): Code(s): R06.02 - Shortness of breath Category: Medical (4) Convulsion: Code(s): R56.9 - Unspecified convulsions Category: Medical (5) Orthostatic hypotension due to Parkinson's disease: Code(s): G90.3 - Multi-system degeneration of the autonomic nervous system Category: Medical (6) S/P percutaneous endoscopic gastrostomy (PEG) tube placement: Comment: For levodopa Code(s): Z93.1 - Gastrostomy status Category: Surgical Plan For convulsive episode- Isolated convulsive episode w/ question of secondary to fall. Pt does not drive. Will initiate furtehr work-up prior to considering tx. Pt advised to undergo EEG Pt advised to undergo Brain MRI w/wo- to assess for secondary etiologies of recent convulsive episode. Future considerations- cardiac work-up Will refer pt for pulmonary consult d/t recurrent hosp/ER visits for resp s/s. PERSONALIZED LIVING ASSISTANT eval & tx for dysphagia as ordered. W/C eval through [facility] PT and [place] [facility]- as ordered. Will request [facility] notes r/t replacing Peg-J tube. Pt has stopped Midodrine 2.5 mg- not tolerated. Start Droxydopa 100mg tid (last dose at least 3 hours before bedtime). Sleep w/ head elevated. Take blood pressure qam while still in bed, hold droxydopa for BP 160/90. Ensure increased fluid intake including electrolyte replacement beverages. Stand slowly. Continue to use walker. Continue Duopa 100mg/ml infusion via peg-J * Morning Dose: 5.9 ml (w/ range 9.5-10.5)- may hold for now, consider adjusting after pt adjusts to Droxydopa trial. * Continuous dose: 3.2ml/hr (w/ range 3-3.5) x's 16 hrs/day * Bolus dose 2 ml q 2 hrs * Lock level: 2? May continue Pramipexole 0.5mg tid. CD-LD IR 25-100mg, 1/2-1 tab or Rytary 23.75-95mg samples prn off-time. Hold Apokyn 0.25-0.4ml q 2 hrs prn- max 1.2 ml per day. Clonazepam 2.5mg qhs prn for sleep- if falls persist, consider alternate as benzodiazepines may increase fall risk as well. Previous tx trials- Rasagiline, Selegiline- no effective. CD-LD ER 25-100mg- ineffective. Quetiapine- not tolerated. Midodrine- not tolerated. Contraindications/cautions- avoid increased doses of dopamine agonists d/t compulsiveness and OH s/s. Would avoid fludrocortisone d/t recurrent pulmonary infections- high infection risk. ?Will follow-up upon review of above and patient to follow-up in clinic in 3-4 months or sooner prn. Orders: Orders MR head/brain wo/w con 02/09/24 G90.3 - Multi-system degeneration of the autonomic nervous system, J18.9 - Pneumonia, unspecified organism, R13.10 - Dysphagia, unspecified, R44.3 - Hallucinations, unspecified, R45.1 - Restlessness and agitation, R56.9 - Unspecified convulsions EEG electroencephalogram 02/09/24 R56.9 - Unspecified convulsions Referrals Pulmonology Referral J44.9 - Chronic obstructive pulmonary disease, unspecified, J69.0 - Pneumonitis due to inhalation of food and vomit, R06.02 - Shortness of breath Medications: New droxidopa give consistently with OR without food, upon rising, at midday, late PM/at least 3hrs before bedtime 100 mg PO TID 30 days 90 caps 3RF Discontinued midodrine do not give last dose of day after 6PM or within 4 hrs of bedtime Discontinued Reason: Doctor's Order 2.5 mg PO BID 30 days 60 tabs 1RF pramipexole Discontinued Reason: Doctor's Order 0.5 mg (1/2 x 1 mg) PO BID 30 days PRN 30 tabs 1RF PD off-time Coding Level of Care Code Tele Est Pt Level 4 (69322) Complex EM visit Add On G2211 Diagnoses Parkinson's disease with dyskinesia, with fluctuations G20.B2 COPD (chronic obstructive pulmonary disease) J44.9 SOB (shortness of breath) R06.02 Convulsion R56.9 Orthostatic hypotension due to Parkinson's disease G90.3 S/P percutaneous endoscopic gastrostomy (PEG) tube placement Z93.1
[2024-02-09 12:57] VITALS: BP 112/78; BMI 27.1
== END 2024-02-09 14:06 | disposition home or self-care (01) ==
LOC: HO.HSMS 12:56
PROVIDERS: PCP Internal Medicine; Visit Provider Nurse Practitioner Family
DX: G20.B2 Parkinson's disease with dyskinesia, with fluctuations (principal); J44.9 Chronic obstructive pulmonary disease, unspecified; R56.9 Unspecified convulsions; G90.3 Multi-system degeneration of the autonomic nervous system; Z93.1 Gastrostomy status; R06.02 Shortness of breath
CPT/HCPCS: 99214; G2211

== ENCOUNTER → 2024-02-09 12:55 | Outpatient (BNVA) | payer MEDICARE, MEDICAID, SELFPAY | PROVIDERS: PCP Internal Medicine; Visit Provider Nurse Practitioner Family | DX: G20.B2 Parkinson's disease with dyskinesia, with fluctuations (principal); G90.3 Multi-system degeneration of the autonomic nervous system; R56.9 Unspecified convulsions; J44.9 Chronic obstructive pulmonary disease, unspecified; R06.02 Shortness of breath; Z93.1 Gastrostomy status | CPT/HCPCS: 99212 ==